=== PATIENT | female | born 1940 | race Caucasian/White ===

== ENCOUNTER 2022-08-30 12:54 | Emergency (ER) | payer MEDICARE ==
[2022-08-30 13:00] VITALS: RESP 18; TEMP 98.1
[2022-08-30 13:13] LABS: Basophils % (A) 0 %; Eosinophils # (A) 0.2 k/uL (0-0.7); Eosinophils % (A) 2 %; HCT 38.4 % (34.0-46.0); HGB 13.3 gm/dL (11.4-16.0); Lymphocytes # (A) 2.7 k/uL (1.0-4.8); Lymphocytes % (A) 31 %; MCH 33.4 pg (25.0-35.0); MCHC 34.7 g/dL (31.0-37.0); MCV 96.4 fL (80.0-100.0); Mean Platelet Volume 7.7; Monocytes # (A) 0.4 k/uL (0-1.0); Monocytes % (A) 4 %; Neutrophils # (A) 5.3 k/uL (1.3-7.7); Neutrophils % (A) 60 %; Platelet Count 202 k/uL (150-450); RBC 3.98 m/uL (3.80-5.40); RDW 12.2 % (11.5-15.5); WBC 8.7 k/uL (3.8-10.6)
[2022-08-30 13:25] LABS: ALT 14 U/L (4-34); AST 21 U/L (14-36); African American GFR (CKD) >90 (>60 ml/min/1.73 sqM); Albumin 3.5 g/dL (3.5-5.0); Alkaline Phosphatase 101 U/L (38-126); Anion Gap 3 mmol/L; Blood Urea Nitrogen 17 mg/dL (7-17); Calcium 8.8 mg/dL (8.4-10.2); Carbon Dioxide 27 mmol/L (22-30); Chloride 110 mmol/L (98-107); Glucose 114 mg/dL (74-99); Non-African American GFR(CKD) 89 (>60 ml/min/1.73 sqM); Potassium 4.1 mmol/L (3.5-5.1); Sodium 140 mmol/L (137-145); Total Bilirubin 0.6 mg/dL (0.2-1.3)
--- NOTE | 2022-08-30 13:26 | XR ---
EXAMINATION TYPE: XR chest 1V portable DATE OF EXAM: 08/30/2022 COMPARISON: NONE HISTORY: Fall TECHNIQUE: Single frontal view of the chest is obtained. FINDINGS: There is no focal air space opacity, pleural effusion, or pneumothorax seen. The cardiac silhouette size is within normal limits. The osseous structures are intact. IMPRESSION: No acute process.
--- NOTE | 2022-08-30 13:29 | CT ---
EXAMINATION TYPE: CT brain jamesine wo con DATE OF EXAM: 08/30/2022 COMPARISON: HISTORY: fall CT DLP: 1350.4 mGycm Automated exposure control for dose reduction was used. TECHNIQUE: CT scan of the head and cervical spine are performed without contrast. FINDINGS: There is no acute intracranial hemorrhage, mass effect, or midline shift identified. The ventricles and sulci are within normal limits in size. The globes are intact and the visualized sin uses are clear. There is a densely calcified 20 mm extra-axial mass along the left frontal inner conv exity most likely representing calcified meningioma. Cervical spine is visualized in its entirety from C1 through upper thoracic levels and demonstrates s atisfactory alignment without evidence of acute fracture or dislocation. Prevertebral soft tissue ap pears within normal limits. The C1-C2 articulation is unremarkable. IMPRESSION: 1. There is no acute fracture or dislocation evident in the cervical spine. 2. No acute intracranial hemorrhage, mass effect, or midline shift is seen.
--- NOTE | 2022-08-30 13:29 | ED ---
General Adult HPI - General Chief complaint: Fall Stated complaint: Fall-Dizziness Time Seen by Provider: 08/30/22 13:01 Source: EMS Mode of arrival: EMS Limitations: no limitations - History of Present Illness Initial comments: Dictation was produced using [employer] dictation software. please excuse any grammatical, word or spelling errors. Chief Complaint: 81-year-old male presents emergency department for fall and altered mental status History of Present Illness: Patient is a 1-year-old female she is a poor historian. She is brought in by EMS from home. Patient allegedly lives at [facility]. She was staying with her son at his air B[place]. He is visiting from out of state. Patient allegedly fell. Fall was unwitnessed. Patient is evaluated and found to be confused. EMS was called patient is brought to the emergency department. The ROS documented in this emergency department record has been reviewed and confirmed by me. Those systems with pertinent positive or negative responses have been documented in the HPI. All other systems are other negative and/or noncontributory. PHYSICAL EXAM: General Impression: Alert and oriented x2/4, not in acute distress HEENT: Normocephalic atraumatic, extra-ocular movements intact, pupils equal and reactive to light bilaterally, mucous membranes moist. Cardiovascular: Heart regular rate and rhythm Chest: Able to complete full sentences, no retractions, no tachypnea Abdomen: abdomen soft, non-tender, non-distended, no organomegaly Musculoskeletal: Pulses present and equal in all extremities, no peripheral edema Motor: no focal deficits noted Neurological: CN II-XII grossly intact, no focal motor or sensory deficits noted Skin: Intact with no visualized rashes Psych: Normal affect and mood ED course: 81-year-old female presents to emergency department after fall with altered mental status. Patient is a poor historian. Vital signs upon arrival are within acceptable limits. Chart review was performed Laboratory evaluation obtained found to be unremarkable. Imaging studies are negative. Patient observed in emergency department for 2 hours and 30 minutes found to be stable medical condition More history was obtained from the son over the phone. Patient unable to drive to the emergency department because he has a seizure disorder can drive. His re peat report is that he suspected that patient had fell while he was sleeping. Patient told him that maybe she fell. Son request the patient be brought to the emergency department reevaluated. Son has not really spent time with her because he lives out of town last time he was with her was 1 year ago. Since then she has been having mobility and mental issues already. Patient reevaluated at bedside at 3:20 PM. Found to be in stable medical condition. Patient observed in emergency department for 2-1/2 hours. Patient will be discharged. Urinalysis shows urinary tract infection. Patient prescribed antibiotics. My EKG interpretation: Ventricular rate 77, sinus rhythm,. Interval 145, Q 76, QTC 386. No MN prolongation, no QTC prolongation, no ST or T-wave changes noted. Overall, this EKG is unremarkable Critical Care: yes Critical Care time: 33 - Related Data Home Medications Medication Instructions Recorded Confirmed Ascorbic Acid [Vitamin C] 500 mg PO DAILY 08/30/22 08/30/22 Atorvastatin [Lipitor] 40 mg PO DIRECTED 08/30/22 08/30/22 Cholecalciferol [Vitamin D3 (25 25 mcg PO DAILY 08/30/22 08/30/22 Mcg = 1000 Iu)] Multivitamins, Thera [Multivitamin 1 tab PO DAILY 08/30/22 08/30/22 (formulary)] Previous Rx's Medication Instructions Recorded Cephalexin [Keflex] 250 mg PO Q6HR 5 Days #20 cap 08/30/22 Allergies Allergy/AdvReac Type Severity Reaction Status Date / Time No Known Allergies Allergy Verified 08/30/22 15:38 Review of Systems ROS Statement: Those systems with pertinent positive or pertinent negative responses have been documented in the HPI. ROS Other: All systems not noted in ROS Statement are negative. Past Medical History Past Medical History: No Reported History Past Surgical History: Orthopedic Surgery Smoking Status: Never smoker Past Alcohol Use History: None Reported Past Drug Use History: None Reported General Exam Limitations: no limitations Course Vital Signs 08/30/22 08/30/22 08/30/22 12:55 13:00 13:30 Temperature 98.1 F Pulse Rate 83 88 80 Respiratory 18 Rate Blood Pressure 154/94 154/94 154/94 O2 Sat by Pulse 98 98 96 Oximetry 08/30/22 08/30/22 08/30/22 14:00 14:30 15:00 Temperature Pulse Rate 81 79 80 Respiratory Rate Blood Pressure 132/72 128/61 139/91 O2 Sat by Pulse 95 95 96 Oximetry Medical Decision Making - Lab Data Result diagrams: 08/30/22 13:05 08/30/22 13:05 Lab Results 08/30/22 08/30/22 08/30/22 Range/Units 13:05 13:05 13:05 WBC 8.7 (3.8-10.6) k/uL RBC 3.98 (3.80-5.40) m/uL Hgb 13.3 (11.4-16.0) gm/dL Hct 38.4 (34.0-46.0) % MCV 96.4 (80.0-100.0) fL MCH 33.4 (25.0-35.0) pg MCHC 34.7 (31.0-37.0) g/dL RDW 12.2 (11.5-15.5) % Plt Count 202 (150-450) k/uL MPV 7.7 Neutrophils % 60 % Lymphocytes % 31 % Monocytes % 4 % Eosinophils % 2 % Basophils % 0 % Neutrophils # 5.3 (1.3-7.7) k/uL Lymphocytes # 2.7 (1.0-4.8) k/uL Monocytes # 0.4 (0-1.0) k/uL Eosinophils # 0.2 (0-0.7) k/uL Basophils # 0.0 (0-0.2) k/uL Sodium 140 (137-145) mmol/L Potassium 4.1 (3.5-5.1) mmol/L Chloride 110 H (98-107) mmol/L Carbon Dioxide 27 (22-30) mmol/L Anion Gap 3 mmol/L BUN 17 (7-17) mg/dL Creatinine 0.53 (0.52-1.04) mg/dL Est GFR (CKD-EPI)AfAm >90 (>60 ml/min/1.73 sqM) Est GFR (CKD-EPI)NonAf 89 (>60 ml/min/1.73 sqM) Glucose 114 H (74-99) mg/dL Calcium 8.8 (8.4-10.2) mg/dL Total Bilirubin 0.6 (0.2-1.3) mg/dL AST 21 (14-36) U/L ALT 14 (4-34) U/L Alkaline Phosphatase 101 (38-126) U/L Total Protein 6.0 L (6.3-8.2) g/dL Albumin 3.5 (3.5-5.0) g/dL Urine Color Yellow Urine Appearance Clear (Clear) Urine pH 6.0 (5.0-8.0) Ur Specific [place] 1.027 (1.001-1.035) Urine Protein Negative (Negative) Urine Glucose (UA) Negative (Negative) Urine Ketones Negative (Negative) Urine Blood Negative (Negative) Urine Nitrite Negative (Negative) Urine Bilirubin Negative (Negative) Urine Urobilinogen 2.0 (<2.0) mg/dL Ur Leukocyte Esterase Moderate H (Negative) Urine RBC 2 (0-5) /hpf Urine WBC 29 H (0-5) /hpf Ur Squamous Epith Cells 2 (0-4) /hpf Hyaline Casts 1 (0-2) /lpf Urine Mucus Rare H (None) /hpf Disposition Clinical Impression: Fall, UTI (urinary tract infection) Disposition: HOME SELF-CARE Condition: Good Instructions (If sedation given, give patient instructions): Fall Prevention for Older Adults (ED), Urinary Tract Infection in Women (ED) Prescriptions: Cephalexin [Keflex] 250 mg PO Q6HR 5 Days #20 cap Is patient prescribed a controlled substance at d/c from ED?: No Referrals: None,Stated [Primary Care Provider] - 1-2 days Time of Disposition: 15:24
[2022-08-30 15:48] LABS: Appearance,Urine Clear (Clear); Bilirubin,Urine Negative (Negative); Blood,Urine Negative (Negative); Color,Urine Yellow; Glucose,Urine (UA) Negative (Negative); Hyaline Casts,Urine 1 /lpf (0-2); Ketones,Urine Negative (Negative); Leukocyte Esterase,Urine Moderate (Negative); Mucus,Urine Rare /hpf; Nitrite,Urine Negative (Negative); Protein,Urine Negative (Negative); RBC,Urine 2 /hpf (0-5); Specific Gravity,Urine 1.027 (1.001-1.035); Squamous Epithelial Cell,Urine 2 /hpf (0-4); WBC,Urine 29 /hpf (0-5)
[2022-08-30 16:29] VITALS: BP 118/66; PULSE 72
== END 2022-08-30 16:29 | disposition home or self-care (01) ==
LOC: EC 12:54
DX: N39.0 Urinary tract infection, site not specified (principal); Z88.1 Allergy status to other antibiotic agents; W18.30XA Fall on same level, unspecified, initial encounter
CPT/HCPCS: 36415; 70450; 71045; 72125; 80053; 81001; 85025; 87086; 93005; 99285

== ENCOUNTER 2023-10-24 23:57 | Inpatient (IN) | payer MEDICARE ==
--- NOTE | 2023-10-25 00:12 | ED ---
General Adult HPI - General Chief complaint: Abdominal Pain Stated complaint: Abdominal Pain Time Seen by Provider: 10/24/23 23:59 Source: patient, EMS Mode of arrival: EMS Limitations: no limitations - History of Present Illness Initial comments: Dictation was produced using [employer] dictation software. please excuse any grammatical, word or spelling errors. Chief Complaint: 83-year-old female with no significant comorbidities presents to the ER for worsening left lower quadrant abdominal pain History of Present Illness: 83-year-old female she has no known significant comorbidities. States over the last several days she's been having worsening left lower quadrant pain. States that it hurts all the time. Denies any burning on urination. Patient states the pain is constant. Nonradiating noncolicky. Denies any nausea or vomiting. She reports that she does have symptoms even while at rest. She has no history of diverticulitis or abdominal surgery. The ROS documented in this emergency department record has been reviewed and confirmed by me. Those systems with pertinent positive or negative responses have been documented in the HPI. All other systems are other negative and/or noncontributory. - Related Data Home Medications Medication Instructions Recorded Confirmed Ascorbic Acid [Vitamin C] 500 mg PO DAILY 08/30/22 08/30/22 Atorvastatin [Lipitor] 40 mg PO DIRECTED 08/30/22 08/30/22 Cholecalciferol [Vitamin D3 (25 25 mcg PO DAILY 08/30/22 08/30/22 Mcg = 1000 Iu)] Multivitamins, Thera [Multivitamin 1 tab PO DAILY 08/30/22 08/30/22 (formulary)] Previous Rx's Medication Instructions Recorded Cephalexin [Keflex] 250 mg PO Q6HR 5 Days #20 cap 08/30/22 Allergies Allergy/AdvReac Type Severity Reaction Status Date / Time No Known Allergies Allergy Verified 10/25/23 00:03 Review of Systems ROS Statement: Those systems with pertinent positive or pertinent negative responses have been documented in the HPI. ROS Other: All systems not noted in ROS Statement are negative. Past Medical History Past Medical History: No Reported History Past Surgical History: Orthopedic Surgery Smoking Status: Never smoker Past Alcohol Use History: None Reported Past Drug Use History: None Reported General Exam - General Exam Comments Initial Comments: PHYSICAL EXAM: General Impression: Alert and oriented x3, not in acute distress HEENT: Normocephalic atraumatic, extra-ocular movements intact, pupils equal and reactive to light bilaterally, mucous membranes moist. Cardiovascular: Heart regular rate and rhythm Chest: Able to complete full sentences, no retractions, no tachypnea Abdomen: abdomen soft, palpatory tenderness to the left lower quadrant, non- distended, no organomegaly Musculoskeletal: Pulses present and equal in all extremities, no peripheral edema Motor: no focal deficits noted Neurological: CN II-XII grossly intact, no focal motor or sensory deficits noted Skin: Intact with no visualized rashes Psych: Normal affect and mood Limitations: no limitations Course Vital Signs 10/25/23 10/25/23 00:01 02:03 Temperature 97.3 F L Pulse Rate 77 79 Respiratory 18 18 Rate Blood Pressure 139/68 133/62 O2 Sat by Pulse 100 97 Oximetry Medical Decision Making - Medical Decision Making Was pt. sent in by a medical professional or institution (, PA, CONCRETE CONVEYOR OPERATOR, urgent care, hospital, or longterm...) When possible be specific @ -No Did you speak to anyone other than the patient for history (EMS, parent, family, police, friend...)? What history was obtained from this source @ -No Did you review nursing and triage notes (agree or disagree)? Why? @ -I reviewed and agree with nursing and triage notes Were old charts reviewed (outside hosp., previous admission, EMS record, old EKG, old radiological studies, urgent care reports/EKG's, longterm records)? Report findings @ -No old charts were reviewed Differential Diagnosis (chest pain, altered mental status, abdominal pain women, abdominal pain men, vaginal bleeding, musculoskeletal, weakness, fever, dyspnea, syncope, headache, dizziness, GI bleed, back pain, seizure, CVA, palpatations, mental health)? @ -Differential Abdominal Pain Women: Appendicitis, Cholecystitis, diverticulosis, ischemic bowel, pancreatitis, hepatitis, UTI, gastroenteritis, AAA, incarcerated hernia, bowel obstruction, constipation, inflammatory bowel, hepatitis, peptic ulcer disease, splenic infa rction, perforated viscus, vulvitis, ovarian torsion, PID, kidney stone, placenta abruption, this is not meant to be an all-inclusive list EKG interpreted by me (3pts min.). @ -None done X-rays interpreted by me (1pt min.). @ -None done CT interpreted by me (1pt min.). @ -CT abdomen and pelvis shows perforated diverticulitis U/S interpreted by me (1pt. min.). @ -None done What testing was considered but not performed or refused? (CT, X-rays, U/S, labs)? Why? @ -None What meds were considered but not given or refused? Why? @ -None Did you discuss the management of the patient with other professionals (professionals i.e. Dr., PA, CONCRETE CONVEYOR OPERATOR, lab, RT, psych nurse, social director, spout liner helper, teacher, customs and border protection officer, high risk case manager)? Give summary @ -No Was smoking cessation discussed for >3mins.? @ -No Was critical care preformed (if so, how long)? @ -No Were there social determinants of health that impacted care today? How? (Homelessness, low income, unemployed, alcoholism, drug addiction, transportation, low edu. Level, literacy, decrease access to med. care, [facility], rehab)? @ -No Was there de-escalation of care discussed even if they declined (Discuss DNR or withdrawal of care, Hospice)? DNR status @ -No What co-morbidities impacted this encounter? (DM, HTN, Smoking, COPD, CAD, Cancer, CVA, ARF, Chemo, Hep., AIDS, mental health diagnosis, sleep apnea, morbid obesity)? @ -None Was patient admitted / discharged? Hospital course, mention meds given and route, prescriptions, significant lab abnormalities, going to OR and other pertinent info. @ -83-year-old female presents emergency department for left lower quadrant abdominal pain. Vital signs upon arrival are within acceptable limits. Patient is well-appearing in no acute distress. Laboratory evaluation obtained on to be within acceptable limits. CT shows perforated diverticulitis. Patient started on antibiotics will be admitted to general surgery. Case discussed with general surgeon, Dr. Billings who is agreeable for accepting patient's care Undiagnosed new problem with uncertain prognosis? @ -No Drug Therapy requiring intensive monitoring for toxicity (Heparin, Nitro, Insul in, Cardizem)? @ -No Were any procedures done? @ -No Diagnosis/symptom? Acute, or Chronic, or Acute on Chronic? Uncomplicated (without systemic symptoms) or Complicated (systemic symptoms)? @ -Perforated diverticulitis Side effects of treatment? @ -No Exacerbation, Progression, or Severe Exacerbation? @ -No Poses a threat to life or bodily function? How? (Chest pain, USA, SC, pneumonia, PE, COPD, DKA, ARF, appy, cholecystitis, CVA, Diverticulitis, Homicidal, Suicidal, threat to staff... and all critical care pts) @ -yes - Lab Data Result diagrams: 10/25/23 00:30 10/25/23 00:30 Lab Results 10/25/23 10/25/23 10/25/23 Range/Units 00:30 00:30 00:30 WBC 13.5 H (3.8-10.6) k/uL RBC 4.11 (3.80-5.40) m/uL Hgb 13.3 (11.4-16.0) gm/dL Hct 40.1 (34.0-46.0) % MCV 97.7 (80.0-100.0) fL MCH 32.5 (25.0-35.0) pg MCHC 33.2 (31.0-37.0) g/dL RDW 12.3 (11.5-15.5) % Plt Count 174 (150-450) k/uL MPV 8.6 Neutrophils % 79 % Lymphocytes % 16 % Monocytes % 4 % Eosinophils % 1 % Basophils % 0 % Neutrophils # 10.6 H (1.3-7.7) k/uL Lymphocytes # 2.1 (1.0-4.8) k/uL Monocytes # 0.5 (0-1.0) k/uL Eosinophils # 0.1 (0-0.7) k/uL Basophils # 0.0 (0-0.2) k/uL Sodium 141 (137-145) mmol/L Potassium 3.7 (3.5-5.1) mmol/L Chloride 110 H (98-107) mmol/L Carbon Dioxide 26 (22-30) mmol/L Anion Gap 5 mmol/L BUN 23 H (7-17) mg/dL Creatinine 0.72 (0.52-1.04) mg/dL Est GFR (CKD-EPI)AfAm 90 (>60 ml/min/1.73 sqM) Est GFR (CKD-EPI)NonAf 78 (>60 ml/min/1.73 sqM) Glucose 112 H (74-99) mg/dL Plasma Lactic Acid Danny 0.8 (0.7-2.0) mmol/L Calcium 8.9 (8.4-10.2) mg/dL Total Bilirubin 0.6 (0.2-1.3) mg/dL AST 23 (14-36) U/L ALT 16 (4-34) U/L Alkaline Phosphatase 90 (38-126) U/L Total Protein 6.4 (6.3-8.2) g/dL Albumin 3.7 (3.5-5.0) g/dL Disposition Clinical Impression: Perforated bowel Disposition: ADMITTED IP TO THIS [facility] Condition: Serious Referrals: None,Stated [Primary Care Provider] - 1-2 days Decision Time: 02:16
[2023-10-25 00:40] LABS: Basophils % (A) 0 %; Eosinophils # (A) 0.1 k/uL (0-0.7); Eosinophils % (A) 1 %; HCT 40.1 % (34.0-46.0); HGB 13.3 gm/dL (11.4-16.0); Lymphocytes # (A) 2.1 k/uL (1.0-4.8); Lymphocytes % (A) 16 %; MCH 32.5 pg (25.0-35.0); MCHC 33.2 g/dL (31.0-37.0); MCV 97.7 fL (80.0-100.0); Mean Platelet Volume 8.6; Monocytes # (A) 0.5 k/uL (0-1.0); Monocytes % (A) 4 %; Neutrophils # (A) 10.6 k/uL (1.3-7.7); Neutrophils % (A) 79 %; Platelet Count 174 k/uL (150-450); RBC 4.11 m/uL (3.80-5.40); RDW 12.3 % (11.5-15.5); WBC 13.5 k/uL (3.8-10.6)
[2023-10-25 00:47] LABS: ALT 16 U/L (4-34); AST 23 U/L (14-36); African American GFR (CKD) 90 (>60 ml/min/1.73 sqM); Albumin 3.7 g/dL (3.5-5.0); Alkaline Phosphatase 90 U/L (38-126); Anion Gap 5 mmol/L; Blood Urea Nitrogen 23 mg/dL (7-17); Calcium 8.9 mg/dL (8.4-10.2); Carbon Dioxide 26 mmol/L (22-30); Chloride 110 mmol/L (98-107); Glucose 112 mg/dL (74-99); Non-African American GFR(CKD) 78 (>60 ml/min/1.73 sqM); Potassium 3.7 mmol/L (3.5-5.1); Sodium 141 mmol/L (137-145); Total Bilirubin 0.6 mg/dL (0.2-1.3); Total Protein 6.4 g/dL (6.3-8.2)
--- NOTE | 2023-10-25 01:56 | CT ---
EXAM: CT Abdomen and Pelvis With Intravenous Contrast CLINICAL HISTORY: ITS.REASON CT Reason: llq pain TECHNIQUE: Axial computed tomography images of the abdomen and pelvis with intravenous contrast. CTDI is 19.5 mGy and DLP is 894.8 mGy-cm. This CT exam was performed using one or more of the following dose reduction techniques: automated exposure control, adjustment of the mA and/or kV according to patient size, and/or use of iterative reconstruction technique. COMPARISON: No relevant prior studies available. FINDINGS: There is complicated acute diverticulitis of the proximal sigmoid colon. There is wall thickening and pericolic fat stranding. Intramural abscess in the lateral sigmoid colon wall measures 3 cm. There are foci of free air in the adjacent mesentery in keeping with bowel perforation. There is trace ascites extending that the pelvis. Foci of free air extend into the upper abdomen. There is no bowel obstruction. There is no evidence of appendicitis. Liver, gallbladder, spleen, pancreas, and adrenal glands are unremarkable. Left adrenal gland is normal. There is an indeterminate right adrenal nodule measuring 3 cm. Kidneys enhance symmetrically. There is no hydronephrosis. Aorta is calcified. There is no aneurysm. There is no adenopathy. Calcified uterine fibroid in the left aspect of the uterus measures 18 mm. Urinary bladder is normal. Bones are osteopenic. 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 There is multilevel disc and facet degeneration in the lumbar spine. There are no acute fractures. Lung bases are clear. IMPRESSION: 1. Perforated acute diverticulitis of the proximal sigmoid colon. Foci of free the air in the adjacent mesentery and in the upper abdomen. There is also a 3 cm intramural abscess in the sigmoid colon wall. 2. Indeterminate right adrenal mass measuring 3 cm. Further characterization with low-dose adrenal protocol CT may be performed. <MYCVCSECTION> Communications: 10/25/23 02:00 Call Doctor Regarding Pneumoperitoneum, new or unexpected, called Dr. Lujan on 10/25 02:00 (-05:00)
[2023-10-25] MEDS ORDERED: ONDANSETRON 4 MG/2 ML VIAL IVP PRN (02:06)
[2023-10-25] MEDS ORDERED: NALOXONE 0.4 MG/ML 1 ML VIAL IV PRN (02:06)
[2023-10-25] MEDS ORDERED: ACETAMINOPHEN TAB 325 MG TAB PO PRN (02:06)
[2023-10-25] MEDS: SODIUM CHLORIDE 0.9% 1,000 ML IV SCH ×3 (02:21→20:43)
[2023-10-25] MEDS: PIPERACILLIN-TAZOBACTAM 3.375 GM in SODIUM CHLORIDE 0.9% 100 ML IVPB SCH ×3 (02:22→16:48)
--- NOTE | 2023-10-25 03:12 | XR ---
EXAM: XR Chest, 1 View CLINICAL HISTORY: ITS.REASON XR Reason: preop TECHNIQUE: Frontal view of the chest. COMPARISON: 08/30/2022 FINDINGS: Lungs: Unremarkable. No consolidation. Pleural space: Unremarkable. No pneumothorax. Heart: Unremarkable. No cardiomegaly. Mediastinum: Unremarkable. Normal mediastinal contour. Bones/joints: Unremarkable. No acute fracture. Upper abdomen: Free air in the abdomen this is new when compared with the prior chest x-ray but correspond to the abnormality identified on the CT of the abdomen and pelvis performed earlier on the same date. IMPRESSION: Free air
[2023-10-25 03:13] LABS: INR 0.9 (<1.2); Partial Thromboplastin Time 22.1 sec (22.0-30.0); Prothrombin Time 10.4 sec (10.0-12.5)
[2023-10-25 08:45] LABS: Appearance,Urine Clear (Clear); Bilirubin,Urine Negative (Negative); Blood,Urine Trace (Negative); Color,Urine Light Yellow; Glucose,Urine (UA) Negative (Negative); Ketones,Urine Negative (Negative); Leukocyte Esterase,Urine Negative (Negative); Mucus,Urine Rare /hpf; Nitrite,Urine Negative (Negative); Protein,Urine Negative (Negative); RBC,Urine 2 /hpf (0-5); Squamous Epithelial Cell,Urine 2 /hpf (0-4); Urobilinogen,Urine <2.0 mg/dL (<2.0); WBC,Urine 5 /hpf (0-5)
[2023-10-25 08:47] LABS: Specific Gravity,Urine >1.050 (1.001-1.035)
--- NOTE | 2023-10-25 12:39 | P.GSHP ---
History of Present Illness H&P Date: 10/25/23 CHIEF COMPLAINT: Abdominal pain HISTORY OF PRESENT ILLNESS: This 83-year-old female who presented with left lower quadrant abdominal pain. She is a poor historian. Patient reports that she does not have abdominal pain but she is tender on exam. She is unclear of why she is admitted to the hospital. Computed tomography scan abdomen and pelvis had reported perforated acute diverticulitis of the sigmoid colon with a 3 cm intramural abscess in the sigmoid colon wall. Patient has been started on antibiotics. She is nothing by mouth. No fevers reported. She did have evidence of leukocytosis. Patient unclear what her last colonoscopy was. PAST MEDICAL HISTORY: Hyperlipidemia PAST SURGICAL HISTORY: See below MEDICATIONS: See below ALLERGIES: See below SOCIAL HISTORY: No illicit drug use. REVIEW OF SYSTEMS: CONSTITUTIONAL: Denies fever or chills. HEENT: Denies blurred vision, vision changes, or eye pain. Denies hemoptysis CARDIOVASCULAR: Denies chest pain or pressure. RESPIRATORY: No shortness of breath. GASTROINTESTINAL: See HPI for pertinent findings HEMATOLOGIC: Denies bleeding disorders. GENITOURINARY: Denies any blood in urine or increased urinary frequency. SKIN: Denies pruitis. Denies rash. PHYSICAL EXAM: VITAL SIGNS: Reviewed GENERAL: Well-developed in no acute distress. ABDOMEN: Soft. Nondistended. Tenderness with palpation of the left lower qu adrant NEUROLOGIC: Awake and alert. Pleasantly confused. LABORATORY DATA: WBC 13.5 Hgb 13.3 platelets 174 INR 0.9 Sodium 141 potassium 3.7 creatinine 0.72 Lactic acid 0.8 IMAGING: Computed tomography scan of pelvis reports perforated acute diverticulitis of the proximal sigmoid colon. Foci of free air in the adjacent mesentery and in the upper abdomen. There is also a 3 cm intramural abscess in the sigmoid colon wall. Indeterminate right adrenal mass measuring 3 cm. ASSESSMENT: 1. Acute diverticulitis of the sigmoid colon with microperforation and intramural abscess PLAN: -Continue IV antibiotics -Keep patient nothing by mouth -Continue IV fluids -Continue supportive care -Medicine service consulted for medical management -GI prophylaxis Pepcid and DVT prophylaxis subcu Physician Test Carrier note has been reviewed by physician. Signing provider agrees with the documented findings, assessment, and plan of care. Past Medical History Past Medical History: No Reported History Past Surgical History: Orthopedic Surgery Smoking Status: Never smoker Past Alcohol Use History: None Reported Past Drug Use History: None Reported Medications and Allergies Home Medications Medication Instructions Recorded Confirmed Type Atorvastatin [Lipitor] 40 mg PO DIRECTED 08/30/22 10/25/23 History Cholecalciferol [Vitamin D3 (25 25 mcg PO DAILY 08/30/22 10/25/23 History Mcg = 1000 Iu)] Cranberry(Unknown Dose) 1 tab PO DAILY 10/25/23 10/25/23 History Focus Factor 1 cap PO DAILY 10/25/23 10/25/23 History Lutein 20 mg PO DAILY 10/25/23 10/25/23 History [place]-3/Dha/Epa/Fish Oil [Fish Oil 1 cap PO DAILY 10/25/23 10/25/23 History 1,000 mg Softgel] Allergies Allergy/AdvReac Type Severity Reaction Status Date / Time No Known Allergies Allergy Verified 10/25/23 11:04 Surgical - Exam Vital Signs Temp Pulse Resp BP Pulse Ox 97.3 F L 77 18 139/68 100 10/25/23 00:01 10/25/23 00:01 10/25/23 00:01 10/25/23 00:01 10/25/23 00:01 Results - Labs 10/25/23 00:30 10/25/23 00:30 Abnormal Lab Results - Last 24 Hours (Table) 10/25/23 10/25/23 10/25/23 Range/Units 00:30 00:30 08:23 WBC 13.5 H (3.8-10.6) k/uL Neutrophils # 10.6 H (1.3-7.7) k/uL Chloride 110 H (98-107) mmol/L BUN 23 H (7-17) mg/dL Glucose 112 H (74-99) mg/dL Ur Specific [place] >1.050 H (1.001-1.035) Urine Blood Trace H (Negative) Urine Mucus Rare H (None) /hpf Diabetes panel 10/25/23 Range/Units 00:30 Sodium 141 (137-145) mmol/L Potassium 3.7 (3.5-5.1) mmol/L Chloride 110 H (98-107) mmol/L Carbon Dioxide 26 (22-30) mmol/L BUN 23 H (7-17) mg/dL Creatinine 0.72 (0.52-1.04) mg/dL Glucose 112 H (74-99) mg/dL Calcium 8.9 (8.4-10.2) mg/dL AST 23 (14-36) U/L ALT 16 (4-34) U/L Alkaline Phosphatase 90 (38-126) U/L Total Protein 6.4 (6.3-8.2) g/dL Albumin 3.7 (3.5-5.0) g/dL Calcium panel 10/25/23 Range/Units 00:30 Calcium 8.9 (8.4-10.2) mg/dL Albumin 3.7 (3.5-5.0) g/dL Pituitary panel 10/25/23 Range/Units 00:30 Sodium 141 (137-145) mmol/L Potassium 3.7 (3.5-5.1) mmol/L Chloride 110 H (98-107) mmol/L Carbon Dioxide 26 (22-30) mmol/L BUN 23 H (7-17) mg/dL Creatinine 0.72 (0.52-1.04) mg/dL Glucose 112 H (74-99) mg/dL Calcium 8.9 (8.4-10.2) mg/dL Adrenal panel 10/25/23 Range/Units 00:30 Sodium 141 (137-145) mmol/L Potassium 3.7 (3.5-5.1) mmol/L Chloride 110 H (98-107) mmol/L Carbon Dioxide 26 (22-30) mmol/L BUN 23 H (7-17) mg/dL Creatinine 0.72 (0.52-1.04) mg/dL Glucose 112 H (74-99) mg/dL Calcium 8.9 (8.4-10.2) mg/dL Total Bilirubin 0.6 (0.2-1.3) mg/dL AST 23 (14-36) U/L ALT 16 (4-34) U/L Alkaline Phosphatase 90 (38-126) U/L Total Protein 6.4 (6.3-8.2) g/dL Albumin 3.7 (3.5-5.0) g/dL
[2023-10-25] MEDS: FAMOTIDINE 20 MG/2 ML VIAL IV SCH (13:10)
[2023-10-25] MEDS: HEPARIN SODIUM,PORCINE 5,000 UNIT/ML 1 ML VIAL SQ SCH (20:42)
[2023-10-26] MEDS: PIPERACILLIN-TAZOBACTAM 3.375 GM in SODIUM CHLORIDE 0.9% 100 ML IVPB SCH ×4 (00:17→23:28)
[2023-10-26] MEDS: SODIUM CHLORIDE 0.9% 1,000 ML IV SCH ×3 (01:51→21:10)
--- NOTE | 2023-10-26 04:00 | PN ---
PROGRESS NOTE Dr. Billings apparently consulted here for left lower abdominal pain in the hospital. CT shows perforated acute diverticulitis; 3 cm abscess. Nothing by mouth. OBJECTIVE: VITAL SIGNS: Appear to be reviewed. CARDIOVASCULAR: S1, S2. LUNGS: Clear. GI: Soft. LABORATORY DATA: CAT scan shows diverticulitis with sigmoid colon abscess, right adrenal mass, IV antibiotics, nothing by mouth. Medical service for consult. Continue home medications. Prognosis guarded. Broad-spectrum antibiotics. Please see further orders. MMODL / IJN: [id number] /
[2023-10-26] MEDS: HEPARIN SODIUM,PORCINE 5,000 UNIT/ML 1 ML VIAL SQ SCH ×2 (08:08→21:08)
[2023-10-26] MEDS: FAMOTIDINE 20 MG/2 ML VIAL IV SCH (08:08)
[2023-10-26 10:16] LABS: Basophils # (A) 0.02 X 10*3/uL (0.00-0.10); Basophils % (A) 0.2 %; Eosinophils # (A) 0.04 X 10*3/uL (0.04-0.35); Eosinophils % (A) 0.4 %; HCT 37.9 % (37.2-46.3); HGB 12.4 g/dL (12.0-15.0); Lymphocytes # (A) 2.47 X 10*3/uL (0.90-5.00); Lymphocytes % (A) 22.3 %; MCHC 32.7 g/dL (32.0-37.0); MCV 97.9 FL (80.0-97.0); Mean Platelet Volume 10.5 FL (9.5-12.2); Monocytes # (A) 0.63 X 10*3/uL (0.20-1.00); Monocytes % (A) 5.7 %; NRBC Per 100 WBC 0 X 10*3/uL (0.00-0.01); Neutrophils # (A) 7.86 X 10*3/uL (1.80-7.70); Platelet Count 183 X 10*3/uL (140-440); RBC 3.87 X 10*6/uL (4.10-5.20); WBC 11.06 X 10*3/uL (4.50-10.00)
[2023-10-26 11:49] LABS: Blood Urea Nitrogen 8.8 mg/dL (9.0-27.0); Calcium 8.8 mg/dL (8.7-10.3); Carbon Dioxide 24.8 mmol/L (21.6-31.8); Chloride 110 mmol/L (96-109); Glucose 82 mg/dL (70-110); Potassium 3.9 mmol/L (3.5-5.5); Sodium 146 mmol/L (135-145)
--- NOTE | 2023-10-26 12:45 | P.PN ---
Subjective Progress Note Date: 10/26/23 CHIEF COMPLAINT: Diverticulitis HISTORY OF PRESENT ILLNESS: Patient lying in bed comfortably. Denies any abdominal pain. Afebrile. White count is down from 13-11.06 hemoglobin 12.4 platelets 183 sodium 146 potassium 3.9 creatinine 0.8 PHYSICAL EXAM: VITAL SIGNS: Reviewed. GENERAL: Well-developed in no acute distress. ABDOMEN: Soft. Nondistended. Tenderness to palpation left lower quadrant NEUROLOGIC: Pleasantly confused ASSESSMENT: 1. Acute diverticulitis of the sigmoid colon with microperforation and intramural abscess PLAN: -Advance diet to clear liquids for lunch and full liquids at dinner -Continue IV antibiotics -Decreased IV fluids to 75 mL per hour -Continue supportive care -Consult physical therapy to ambulate patient -GI prophylaxis Pepcid and DVT prophylaxis subcu Heparin Physician Stage Set Up Worker note has been reviewed by physician. Signing provider agrees with the documented findings, assessment, and plan of care. Objective - Vital Signs Vital signs: Vital Signs Temp 98.3 F 10/26/23 07:34 Pulse 85 10/26/23 07:34 Resp 16 10/26/23 08:00 BP 117/68 10/26/23 07:34 Pulse Ox 95 10/26/23 07:34 FiO2 Intake & Output 10/25/23 10/26/23 10/26/23 18:59 06:59 18:59 Weight 74.843 kg Other: Voiding Method Toilet Toilet Toilet # Voids 1 1 1 # Bowel Movements 1 - Labs CBC & Chem 7: 10/26/23 05:25 10/26/23 05:25 Labs: Abnormal Lab Results - Last 24 Hours (Table) 10/26/23 10/26/23 Range/Units 05:25 05:25 WBC 11.06 H (4.50-10.00) X 10*3/uL RBC 3.87 L (4.10-5.20) X 10*6/uL MCV 97.9 H (80.0-97.0) [place] Neutrophils # 7.86 H (1.80-7.70) X 10*3/uL Sodium 146 H (135-145) mmol/L Chloride 110 H (96-109) mmol/L BUN 8.8 L (9.0-27.0) mg/dL BUN/Creatinine Ratio 11.00 L (12.00-20.00) Ratio
[2023-10-27] MEDS: PIPERACILLIN-TAZOBACTAM 3.375 GM in SODIUM CHLORIDE 0.9% 100 ML IVPB SCH ×2 (08:28→17:31)
[2023-10-27] MEDS: FAMOTIDINE 20 MG/2 ML VIAL IV SCH (08:29)
[2023-10-27] MEDS: HEPARIN SODIUM,PORCINE 5,000 UNIT/ML 1 ML VIAL SQ SCH ×2 (08:29→21:55)
[2023-10-27 11:05] LABS: Basophils # (A) 0.02 X 10*3/uL (0.00-0.10); Basophils % (A) 0.3 %; Eosinophils # (A) 0.09 X 10*3/uL (0.04-0.35); Eosinophils % (A) 1.5 %; HGB 11.8 g/dL (12.0-15.0); Lymphocytes # (A) 1.44 X 10*3/uL (0.90-5.00); MCHC 32.8 g/dL (32.0-37.0); MCV 97.6 FL (80.0-97.0); Mean Platelet Volume 10.5 FL (9.5-12.2); Monocytes % (A) 6.7 %; NRBC Per 100 WBC 0 X 10*3/uL (0.00-0.01); Neutrophils # (A) 4.02 X 10*3/uL (1.80-7.70); Neutrophils % (A) 67.2 %; Platelet Count 158 X 10*3/uL (140-440); RBC 3.69 X 10*6/uL (4.10-5.20); RDW 11.8 % (11.5-14.5); WBC 5.99 X 10*3/uL (4.50-10.00)
[2023-10-27 11:22] LABS: BUN/Creat Ratio 11.14 Ratio (12.00-20.00); Blood Urea Nitrogen 7.8 mg/dL (9.0-27.0); Calcium 8.8 mg/dL (8.7-10.3); Carbon Dioxide 24.6 mmol/L (21.6-31.8); Chloride 109 mmol/L (96-109); Glucose 83 mg/dL (70-110); Sodium 144 mmol/L (135-145)
--- NOTE | 2023-10-27 11:43 | P.PN ---
Subjective Progress Note Date: 10/27/23 CHIEF COMPLAINT: Diverticulitis HISTORY OF PRESENT ILLNESS: Patient lying in bed comfortably. Denies any abdominal pain. Tolerating full liquids. Having bowel movements. Afebrile. WBC normalized from 11.06 to 5.99 PHYSICAL EXAM: VITAL SIGNS: Reviewed. GENERAL: Well-developed in no acute distress. ABDOMEN: Soft. Nondistended. Minimal Tenderness to palpation left lower quadrant NEUROLOGIC: Pleasantly confused ASSESSMENT: 1. Acute diverticulitis of the sigmoid colon with microperforation and intramural abscess PLAN: -Continue full liquids -Continue IV antibiotics -Continue IV fluids -Continue supportive care -Consult physical therapy to ambulate patient -GI prophylaxis Pepcid and DVT prophylaxis subcu Heparin Physician Hydroelectric Component Machinist note has been reviewed by physician. Signing provider agrees with the documented findings, assessment, and plan of care. Objective - Vital Signs Vital signs: Vital Signs Temp 98.9 F 10/27/23 08:10 Pulse 65 10/27/23 08:10 Resp 17 10/27/23 08:10 BP 118/70 10/27/23 08:10 Pulse Ox 96 10/27/23 08:10 FiO2 Intake & Output 10/26/23 10/27/23 10/27/23 18:59 06:59 18:59 Intake Total 1350 Balance 1350 Intake: Intake, IV Titration 500 Amount Piperacillin-Tazobactam 3 100 .375 gm In Sodium Chloride 0.9% 100 ml @ 25 mls/hr IVPB Q8HR LEONARDO Rx# :[id number] Sodium Chloride 0.9% 1, 400 000 ml @ 75 mls/hr IV . [id number] LEONARDO Rx#:[id number] Oral 850 Other: Voiding Method Toilet Toilet # Voids 1 3 1 # Bowel Movements 1 1 - Labs CBC & Chem 7: 10/27/23 05:58 10/27/23 05:58 Labs: Abnormal Lab Results - Last 24 Hours (Table) 10/26/23 10/26/23 Range/Units 05:25 05:25 WBC 11.06 H (4.50-10.00) X 10*3/uL RBC 3.87 L (4.10-5.20) X 10*6/uL MCV 97.9 H (80.0-97.0) [place] Neutrophils # 7.86 H (1.80-7.70) X 10*3/uL Sodium 146 H (135-145) mmol/L Chloride 110 H (96-109) mmol/L BUN 8.8 L (9.0-27.0) mg/dL BUN/Creatinine Ratio 11.00 L (12.00-20.00) Ratio
[2023-10-27] MEDS: SODIUM CHLORIDE 0.9% 1,000 ML IV SCH ×2 (17:32→22:05)
[2023-10-28] MEDS: PIPERACILLIN-TAZOBACTAM 3.375 GM in SODIUM CHLORIDE 0.9% 100 ML IVPB SCH ×3 (00:09→15:54)
--- NOTE | 2023-10-28 07:15 | PN ---
PROGRESS NOTE SUBJECTIVE: IV Zosyn for diverticular abscess 3 cm. Switch to oral antibiotics once cleared by Dr. Billings. OBJECTIVE: CARDIOVASCULAR: S1, S2. LUNGS: Clear. GI: Soft. HEMATOLOGY: Negative for [place]. PSYCH: Fair mood and affect. Diverticular abscess. Continue current treatment with Zosyn, Pepcid for GERD. PROGNOSIS: Guarded. Follow up in next 24 to 48 hours. Please see further orders. MMODL / IJN: [id number] /
[2023-10-28] MEDS: FAMOTIDINE 20 MG/2 ML VIAL IV SCH (09:12)
[2023-10-28] MEDS: HEPARIN SODIUM,PORCINE 5,000 UNIT/ML 1 ML VIAL SQ SCH (09:13)
[2023-10-28] MEDS: SODIUM CHLORIDE 0.9% 1,000 ML IV SCH (09:13)
[2023-10-28 09:26] LABS: Basophils # (A) 0.02 X 10*3/uL (0.00-0.10); Basophils % (A) 0.3 %; Eosinophils # (A) 0.12 X 10*3/uL (0.04-0.35); HCT 35.2 % (37.2-46.3); HGB 11.6 g/dL (12.0-15.0); Lymphocytes # (A) 1.81 X 10*3/uL (0.90-5.00); Lymphocytes % (A) 30.9 %; MCH 31.9 pg (27.0-32.0); MCV 96.7 FL (80.0-97.0); Mean Platelet Volume 10.5 FL (9.5-12.2); Monocytes # (A) 0.47 X 10*3/uL (0.20-1.00); NRBC Per 100 WBC 0 X 10*3/uL (0.00-0.01); Neutrophils # (A) 3.42 X 10*3/uL (1.80-7.70); Neutrophils % (A) 58.5 %; Platelet Count 175 X 10*3/uL (140-440); RBC 3.64 X 10*6/uL (4.10-5.20); RDW 11.9 % (11.5-14.5); WBC 5.86 X 10*3/uL (4.50-10.00)
[2023-10-28 09:37] VITALS: RESP 16
[2023-10-28 13:26] VITALS: BP 124/72; PULSE 70; TEMP 97.3
--- NOTE | 2023-10-28 13:55 | P.DS ---
Providers Date of admission: 10/25/23 02:06 Expected date of discharge: 10/28/23 Attending physician: Bib Billings Consults: 10/25/23 02:06 Consult Physician Routine Consulting Provider: Kiran Taylor Consult Reason/Comments: medicine consult Do you want consulting provider notified?: Yes Primary care physician: Stated None Hospital Course: Discharge diagnosis 1. Acute diverticulitis of the sigmoid colon with microperforation and intramural abscess Hospital course This is a 83-year-old female present with left lower quadrant abdominal pain. CT scan abdomen and pelvis had reported perforated acute diverticulitis of the sigmoid colon with a 3 cm intramural abscess in the sigmoid colon wall. Patient was started on antibiotics. White count has normalized. Her pain has resolved. She is tolerating diet. She is afebrile. She has been up and ambulating. She is stable for discharge. She will be discharged with oral antibiotics. Please refer to chart for any further details. Physician [employer] Tier note has been reviewed by physician. Signing provider agrees with the documented findings, assessment, and plan of care. Patient Condition at Discharge: Stable Plan - Discharge Summary Discharge Rx Participant: No New Discharge Prescriptions: New metroNIDAZOLE [Flagyl] 500 mg PO TID 10 Days #30 tab Levofloxacin [Levaquin] 500 mg PO DAILY 10 Days #10 tab Continue Cholecalciferol [Vitamin D3 (25 Mcg = 1000 Iu)] 25 mcg PO DAILY Atorvastatin [Lipitor] 40 mg PO DIRECTED Focus Factor 1 cap PO DAILY [place]-3/Dha/Epa/Fish Oil [Fish Oil 1,000 mg Softgel] 1 cap PO DAILY Cranberry(Unknown Dose) 1 tab PO DAILY Lutein 20 mg PO DAILY Discharge Medication List Atorvastatin [Lipitor] 40 mg PO DIRECTED 08/30/22 [History] Cholecalciferol [Vitamin D3 (25 Mcg = 1000 Iu)] 25 mcg PO DAILY 08/30/22 [Hi story] Cranberry(Unknown Dose) 1 tab PO DAILY 10/25/23 [History] Focus Factor 1 cap PO DAILY 10/25/23 [History] Lutein 20 mg PO DAILY 10/25/23 [History] [place]-3/Dha/Epa/Fish Oil [Fish Oil 1,000 mg Softgel] 1 cap PO DAILY 10/25/23 [History] Levofloxacin [Levaquin] 500 mg PO DAILY 10 Days #10 tab 10/28/23 [Rx] metroNIDAZOLE [Flagyl] 500 mg PO TID 10 Days #30 tab 10/28/23 [Rx] Follow up Appointment(s)/Referral(s): None,Stated [Primary Care Provider] - 1-2 days Bib Billings MD [STAFF PHYSICIAN] - 1 Week Activity/Diet/Wound Care/Special Instructions: Discharge back to [facility] for Regular diet Avoid eating seeds and nuts Discharge Disposition: HOME SELF-CARE
--- NOTE | 2023-10-28 20:52 | PN ---
PROGRESS NOTE SUBJECTIVE: This is an 83-year-old white female. She still remains on Flagyl and Levaquin. Waiting for surgery to clear her for discharge. Dr. Zaida Hicks saw her for surgery who recommended diverticulitis microperforation, afebrile, ambulating or antibiotics. Follow up as an outpatient. Prognosis guarded, please see further orders. Discharge med list was done. Please see further orders. MMODL / IJN: [id number] /
== END 2023-10-28 19:44 | disposition home or self-care (01) | DRG 392 ==
LOC: EC 23:57 → 5NMEDONC 10-25 02:06
PROVIDERS: ADMIT Surgery; ATTEND Surgery
DX: K57.20 Diverticulitis of large intestine with perforation and abscess without bleeding (principal); E27.8 Other specified disorders of adrenal gland; E78.5 Hyperlipidemia, unspecified; K21.9 Gastro-esophageal reflux disease without esophagitis; Z79.899 Other long term (current) drug therapy
CPT/HCPCS: 36415; 71045; 74177; 80048; 80053; 81001; 83605; 85025; 85610; 85730; 93005; 96365; 96366; 96375; 99285

== ENCOUNTER 2023-12-02 13:16 | Emergency (ER) | payer MEDICARE ==
--- NOTE | 2023-12-02 13:39 | ED ---
Altered Mental Status HPI - General Chief Complaint: Neuro Symptoms/Deficit Stated Complaint: flu like symptoms Time Seen by Provider: 12/02/23 13:38 Source: patient, RN notes reviewed, old records reviewed Mode of arrival: EMS Limitations: no limitations - History of Present Illness Initial Comments: This is a 83-year-old female to the ER for evaluation of dizziness lightheadedness altered mental status weakness not acting appropriate not getting out of bed for the last few days. Patient's not acting himself and comes to the ER for evaluation. She has no specific complaints of headache chest pain shortness of breath or abdominal pain. No nausea vomiting diarrhea or fevers. No recent change in medications MD Complaint: altered mental status, confusion, decreased responsiveness, weakness -: days(s) (3) Consistency of Symptoms: waxing and waning, getting worse Associated Symptoms: weakness - Related Data Home Medications Medication Instructions Recorded Confirmed Atorvastatin [Lipitor] 40 mg PO DIRECTED 08/30/22 12/02/23 Cholecalciferol [Vitamin D3 (25 25 mcg PO DAILY 08/30/22 12/02/23 Mcg = 1000 Iu)] Cranberry(Unknown Dose) 1 tab PO DAILY 10/25/23 12/02/23 Focus Factor 1 cap PO DAILY 10/25/23 12/02/23 Lutein 20 mg PO DAILY 10/25/23 12/02/23 [place]-3/Dha/Epa/Fish Oil [Fish Oil 1 cap PO DAILY 10/25/23 12/02/23 1,000 mg Softgel] Donepezil [Aricept] 5 mg PO DIRECTED 12/02/23 12/02/23 Allergies Allergy/AdvReac Type Severity Reaction Status Date / Time No Known Allergies Allergy Verified 10/25/23 11:04 Review of Systems ROS Statement: Those systems with pertinent positive or pertinent negative responses have been documented in the HPI. ROS Other: All systems not noted in ROS Statement are negative. 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 Absent: scleral icterus, conjunctival injection, periorbital swelling ENT exam: Present: normal exam, mucous membranes moist Neck exam: Present: normal inspection. Absent: tenderness, meningismus, lymphadenopathy Respiratory exam: Present: normal lung sounds bilaterally. Absent: respiratory distress, wheezes, rales, rhonchi, stridor Cardiovascular Exam: Present: regular rate, normal rhythm, normal heart sounds. Absent: systolic murmur, diastolic murmur, rubs, gallop, clicks GI/Abdominal exam: Present: soft, normal bowel sounds. Absent: distended, tenderness, guarding, rebound, rigid Extremities exam: Present: normal inspection, full ROM, normal capillary refill. Absent: tenderness, pedal edema, joint swelling, calf tenderness Back exam: Present: normal inspection Neurological exam: Present: alert, oriented X3, CN II-XII intact Psychiatric exam: Present: normal affect, normal mood Skin exam: Present: warm, dry, intact, normal color. Absent: rash Course Vital Signs 12/02/23 12/02/23 12/02/23 13:32 17:35 18:57 Temperature 98.7 F 97.9 F Pulse Rate 95 115 H 116 H Respiratory 16 20 18 Rate Blood Pressure 113/71 114/68 118/86 O2 Sat by Pulse 95 98 96 Oximetry - Reevaluation(s) Reevaluation #1: Medical records reviewed Reevaluation #2: Patient symptoms improved Reevaluation #3: Patient informed of results questions answered Reevaluation #4: Was pt. sent in by a medical professional or institution (, PA, [employer]ER, urgent care, hospital, or detention...) When possible be specific @ -no Did you speak to anyone other than the patient for history (EMS, parent, family, police, friend...)? What history was obtained from this source @ -no Did you review nursing and triage notes (agree or disagree)? Why? @ -agree Are old charts reviewed (outside hosp., previous admission, EMS record, old EKG, old radiological studies, urgent care reports/EKG's, detention records)? Report findings @ -yes Differential Diagnosis (chest pain, altered mental status, abdominal pain women, abdominal pain men, vaginal bleeding, weakness, fever, dyspnea, syncope, headache, dizziness, GI bleed, back pain, seizure, CVA, palpatations, mental health, musculoskeletal)? @ -prior EKG interpreted by me (3pts min.). @ -yes X-rays interpreted by me (1pt min.). @ -yes negative for acute disease CT interpreted by me (1pt min.). @ -Yes negative for acute disease U/S interpreted by me (1pt. min.). @ -no What testing was considered but not performed or refused? (CT, X-rays, U/S, labs)? Why? @ -none What meds were considered but not given or refused? Why? @ -none Did you discuss the management of the patient with other professionals (professionals i.e. , PA, [employer]ADER, lab, RT, psych nurse, social service worker, legal archivist, teacher, investigation officer, family independence case manager)? Give summary @ -no Was smoking cessation discussed for >3mins.? @ -no Was critical care preformed (if so, how long)? @ -no Were there social determinants of health that impacted care today? How? (Homelessness, low income, unemployed, alcoholism, drug addiction, transportation, low edu. Level, literacy, decrease access to med. care, usp, rehab)? @ -none Was there de-escalation of care discussed even if they declined (Discuss DNR or withdrawal of care, Hospice)? DNR status @ -no What co-morbidities impacted this encounter? (DM, HTN, Smoking, COPD, CAD, Cancer, CVA, ARF, Chemo, Hep., AIDS, mental health diagnosis, sleep apnea, morbid obesity)? @ -none Was patient admitted / discharged? Hospital course, mention meds given and route, prescriptions, significant lab abnormalities, going to OR and other pertinent info. @ - 83 female to the ER for evaluation of altered mental status and not acting appropriate for the last 3 days. Patient has no acute findings here in the ER feels well and can be discharged home Discharge Undiagnosed new problem with uncertain prognosis? @ -no Drug Therapy requiring intensive monitoring for toxicity (Heparin, Nitro, Insulin, Cardizem)? @ -no Were any procedures done? @ -no Diagnosis/symptom? @ -Weakness and altered mental status Acute, or Chronic, or Acute on Chronic? @ -Acute Uncomplicated (without systemic symptoms) or Complicated (systemic symptoms)? @ -Complicated Side effects of treatment? @ -no Exacerbation, Progression, or Severe Exacerbation? @ -exacerbation Poses a threat to life or bodily function? How? (Chest pain, [place], [place], pneumonia, PE, COPD, DKA, ARF, appy, cholecystitis, CVA, Diverticulitis, Homicidal, Suicidal, threat to staff... and all critical care pts) @ -yes with extremes of age Reevaluation #5: Differential Altered Mental Status: Hypoglycemia, DKA, hypercapnia, ETOH, overdose, CO poisoning, trauma, myxedema coma, HTN encephalopathy, infection, encephalitis, psychosis, intercranial hemorrhage, hepatic encephalopathy, meningitis, CVA, this is not meant to be an all-inclusive list Medical Decision Making - Medical Decision Making 83 female to the ER for evaluation of altered mental status and not acting appropriate for the last 3 days. Patient has no acute findings here in the ER feels well and can be discharged home - Lab Data Result diagrams: 12/02/23 14:24 12/02/23 14:24 Lab Results 12/02/23 12/02/23 12/02/23 Range/Units 14:24 14:24 14:24 WBC 14.2 H (3.8-10.6) k/uL RBC 4.12 (3.80-5.40) m/uL Hgb 13.6 (11.4-16.0) gm/dL Hct 41.1 (34.0-46.0) % MCV 99.7 (80.0-100.0) fL MCH 33.0 (25.0-35.0) pg MCHC 33.1 (31.0-37.0) g/dL RDW 12.0 (11.5-15.5) % Plt Count 172 (150-450) k/uL MPV 7.9 Neutrophils % 86 % Lymphocytes % 10 % Monocytes % 3 % Eosinophils % 0 % Basophils % 0 % Neutrophils # 12.3 H (1.3-7.7) k/uL Lymphocytes # 1.4 (1.0-4.8) k/uL Monocytes # 0.4 (0-1.0) k/uL Eosinophils # 0.0 (0-0.7) k/uL Basophils # 0.1 (0-0.2) k/uL PT 11.0 (10.0-12.5) sec INR 1.0 (<1.2) APTT 24.7 (22.0-30.0) sec Sodium (137-145) mmol/L Potassium (3.5-5.1) mmol/L Chloride (98-107) mmol/L Carbon Dioxide (22-30) mmol/L Anion Gap mmol/L BUN (7-17) mg/dL Creatinine (0.52-1.04) mg/dL Est GFR (CKD-EPI)AfAm (>60 ml/min/1.73 sqM) Est GFR (CKD-EPI)NonAf (>60 ml/min/1.73 sqM) Glucose (74-99) mg/dL Calcium (8.4-10.2) mg/dL Total Bilirubin (0.2-1.3) mg/dL AST (14-36) U/L ALT (4-34) U/L Alkaline Phosphatase (38-126) U/L Ammonia (<30) umol/L Troponin I (0.000-0.034) ng/mL Total Protein (6.3-8.2) g/dL Albumin (3.5-5.0) g/dL Urine Color Urine Appearance (Clear) Urine pH (5.0-8.0) Ur Specific [place] (1.001-1.035) Urine Protein (Negative) Urine Glucose (UA) (Negative) Urine Ketones (Negative) Urine Blood (Negative) Urine Nitrite (Negative) Urine Bilirubin (Negative) Urine Urobilinogen (<2.0) mg/dL Ur Leukocyte Esterase (Negative) Urine Opiates Screen (NotDetected) Ur Oxycodone Screen (NotDetected) Urine Methadone Screen (NotDetected) Ur Barbiturates Screen (NotDetected) U Tricyclic Antidepress (NotDetected) Ur Phencyclidine Scrn (NotDetected) Ur Amphetamines Screen (NotDetected) U Methamphetamines Scrn (NotDetected) U Benzodiazepines Scrn (NotDetected) Urine Cocaine Screen (NotDetected) U Marijuana (THC) Screen (NotDetected) Influenza Type A (PCR) (Not Detectd) Influenza Type B (PCR) (Not Detectd) RSV (PCR) (Not Detectd) SARS-CoV-2 (PCR) (Not Detectd) 12/02/23 12/02/23 12/02/23 Range/Units 14:24 14:24 14:24 WBC (3.8-10.6) k/uL RBC (3.80-5.40) m/uL Hgb (11.4-16.0) gm/dL Hct (34.0-46.0) % MCV (80.0-100.0) fL MCH (25.0-35.0) pg MCHC (31.0-37.0) g/dL RDW (11.5-15.5) % Plt Count (150-450) k/uL MPV Neutrophils % % Lymphocytes % % Monocytes % % Eosinophils % % Basophils % % Neutrophils # (1.3-7.7) k/uL Lymphocytes # (1.0-4.8) k/uL Monocytes # (0-1.0) k/uL Eosinophils # (0-0.7) k/uL Basophils # (0-0.2) k/uL PT (10.0-12.5) sec INR (<1.2) APTT (22.0-30.0) sec Sodium 138 (137-145) mmol/L Potassium 3.8 (3.5-5.1) mmol/L Chloride 103 (98-107) mmol/L Carbon Dioxide 28 (22-30) mmol/L Anion Gap 7 mmol/L BUN 12 (7-17) mg/dL Creatinine 0.65 (0.52-1.04) mg/dL Est GFR (CKD-EPI)AfAm >90 (>60 ml/min/1.73 sqM) Est GFR (CKD-EPI)NonAf 82 (>60 ml/min/1.73 sqM) Glucose 93 (74-99) mg/dL Calcium 8.7 (8.4-10.2) mg/dL Total Bilirubin 1.3 (0.2-1.3) mg/dL AST 23 (14-36) U/L ALT 13 (4-34) U/L Alkaline Phosphatase 71 (38-126) U/L Ammonia <9 (<30) umol/L Troponin I <0.012 (0.000-0.034) ng/mL Total Protein 5.9 L (6.3-8.2) g/dL Albumin 3.3 L (3.5-5.0) g/dL Urine Color Urine Appearance (Clear) Urine pH (5.0-8.0) Ur Specific [place] (1.001-1.035) Urine Protein (Negative) Urine Glucose (UA) (Negative) Urine Ketones (Negative) Urine Blood (Negative) Urine Nitrite (Negative) Urine Bilirubin (Negative) Urine Urobilinogen (<2.0) mg/dL Ur Leukocyte Esterase (Negative) Urine Opiates Screen (NotDetected) Ur Oxycodone Screen (NotDetected) Urine Methadone Screen (NotDetected) Ur Barbiturates Screen (NotDetected) U Tricyclic Antidepress (NotDetected) Ur Phencyclidine Scrn (NotDetected) Ur Amphetamines Screen (NotDetected) U Methamphetamines Scrn (NotDetected) U Benzodiazepines Scrn (NotDetected) Urine Cocaine Screen (NotDetected) U Marijuana (THC) Screen (NotDetected) Influenza Type A (PCR) (Not Detectd) Influenza Type B (PCR) (Not Detectd) RSV (PCR) (Not Detectd) SARS-CoV-2 (PCR) (Not Detectd) 12/02/23 Range/Units 14:24 WBC (3.8-10.6) k/uL RBC (3.80-5.40) m/uL Hgb (11.4-16.0) gm/dL Hct (34.0-46.0) % MCV (80.0-100.0) fL MCH (25.0-35.0) pg MCHC (31.0-37.0) g/dL RDW (11.5-15.5) % Plt Count (150-450) k/uL MPV Neutrophils % % Lymphocytes % % Monocytes % % Eosinophils % % Basophils % % Neutrophils # (1.3-7.7) k/uL Lymphocytes # (1.0-4.8) k/uL Monocytes # (0-1.0) k/uL Eosinophils # (0-0.7) k/uL Basophils # (0-0.2) k/uL PT (10.0-12.5) sec INR (<1.2) APTT (22.0-30.0) sec Sodium (137-145) mmol/L Potassium (3.5-5.1) mmol/L Chloride (98-107) mmol/L Carbon Dioxide (22-30) mmol/L Anion Gap mmol/L BUN (7-17) mg/dL Creatinine (0.52-1.04) mg/dL Est GFR (CKD-EPI)AfAm (>60 ml/min/1.73 sqM) Est GFR (CKD-EPI)NonAf (>60 ml/min/1.73 sqM) Glucose (74-99) mg/dL Calcium (8.4-10.2) mg/dL Total Bilirubin (0.2-1.3) mg/dL AST (14-36) U/L ALT (4-34) U/L Alkaline Phosphatase (38-126) U/L Ammonia (<30) umol/L Troponin I (0.000-0.034) ng/mL Total Protein (6.3-8.2) g/dL Albumin (3.5-5.0) g/dL Urine Color Urine Appearance (Clear) Urine pH (5.0-8.0) Ur Specific [place] (1.001-1.035) Urine Protein (Negative) Urine Glucose (UA) (Negative) Urine Ketones (Negative) Urine Blood (Negative) Urine Nitrite (Negative) Urine Bilirubin (Negative) Urine Urobilinogen (<2.0) mg/dL Ur Leukocyte Esterase (Negative) Urine Opiates Screen (NotDetected) Ur Oxycodone Screen (NotDetected) Urine Methadone Screen (NotDetected) Ur Barbiturates Screen (NotDetected) U Tricyclic Antidepress (NotDetected) Ur Phencyclidine Scrn (NotDetected) Ur Amphetamines Screen (NotDetected) U Methamphetamines Scrn (NotDetected) U Benzodiazepines Scrn (NotDetected) Urine Cocaine Screen (NotDetected) U Marijuana (THC) Screen (NotDetected) Influenza Type A (PCR) Not Detected (Not Detectd) Influenza Type B (PCR) Not Detected (Not Detectd) RSV (PCR) Not Detected (Not Detectd) SARS-CoV-2 (PCR) Not Detected (Not Detectd) - EKG Data -: EKG Interpreted by Me (EKG is sinus 91 LA 143 QRS 89 QTc 385) - Radiology Data Radiology results: report reviewed (CT brain C-spine chest x-ray is negative for acute disease), image reviewed Disposition Clinical Impression: Altered mental state Disposition: HOME SELF-CARE Condition: Good Instructions (If sedation given, give patient instructions): Altered Mental Status (ED) Is patient prescribed a controlled substance at d/c from ED?: No Referrals: None,Stated [Primary Care Provider] - 1-2 days Time of Disposition: 18:40
[2023-12-02] MEDS: SODIUM CHLORIDE 0.9% 1,000 ML IV ONE (14:39)
[2023-12-02 14:52] LABS: Basophils # (A) 0.1 k/uL (0-0.2); Basophils % (A) 0 %; Eosinophils % (A) 0 %; HCT 41.1 % (34.0-46.0); HGB 13.6 gm/dL (11.4-16.0); Lymphocytes # (A) 1.4 k/uL (1.0-4.8); Lymphocytes % (A) 10 %; MCHC 33.1 g/dL (31.0-37.0); MCV 99.7 fL (80.0-100.0); Mean Platelet Volume 7.9; Monocytes # (A) 0.4 k/uL (0-1.0); Monocytes % (A) 3 %; Neutrophils # (A) 12.3 k/uL (1.3-7.7); Neutrophils % (A) 86 %; Platelet Count 172 k/uL (150-450); RBC 4.12 m/uL (3.80-5.40); WBC 14.2 k/uL (3.8-10.6)
[2023-12-02 15:06] LABS: ALT 13 U/L (4-34); AST 23 U/L (14-36); African American GFR (CKD) >90 (>60 ml/min/1.73 sqM); Albumin 3.3 g/dL (3.5-5.0); Alkaline Phosphatase 71 U/L (38-126); Anion Gap 7 mmol/L; Blood Urea Nitrogen 12 mg/dL (7-17); Calcium 8.7 mg/dL (8.4-10.2); Carbon Dioxide 28 mmol/L (22-30); Chloride 103 mmol/L (98-107); Glucose 93 mg/dL (74-99); Non-African American GFR(CKD) 82 (>60 ml/min/1.73 sqM); Potassium 3.8 mmol/L (3.5-5.1); Sodium 138 mmol/L (137-145); Total Bilirubin 1.3 mg/dL (0.2-1.3); Total Protein 5.9 g/dL (6.3-8.2)
[2023-12-02 15:11] LABS: Partial Thromboplastin Time 24.7 sec (22.0-30.0)
--- NOTE | 2023-12-02 15:35 | CT ---
EXAMINATION TYPE: CT brain martín gary DATE OF EXAM: 12/02/2023 COMPARISON: 08/30/2022 History: AMS CT DLP: 1298.1 mGycm Automated exposure control for dose reduction was used. TECHNIQUE: CT scan of the head and cervical spine are performed without contrast. FINDINGS Head CT: The ventricles, basal cisterns and sulci of the bases are moderately enlarged consistent with moderat e atrophy inappropriate for the patient's age. There is no mass effect or shift in midline structures . No abnormal density is seen throughout the brain parenchyma and there is no acute intra or extra-axia l hemorrhage. There is a heavily calcified extra-axial mass in the left frontal region which was seen previously an d is consistent with a calcified meningioma. The posterior fossa including the brainstem, fourth ventricle and cerebellar pontine angles appear gr ossly normal. Intraorbital contents appear normal and symmetric. The paranasal sinuses and mastoid air cells are well aerated. CT cervical spine: The craniovertebral junction relationships and prevertebral soft tissues are normal. The cervical vertebral segments are normal in height and alignment. There is no fracture or subluxati on. There is moderate to marked degenerative disc disease at the C4-5, C5-6 and C6-7 levels where there i s moderate to marked disc space narrowing and spondylosis. There is multilevel facet and uncovertebral joint degeneration resulting in multilevel bony neural fo raminal encroachment as follows; mild at C4-5 bilaterally and mild at C5-6 on the left. Impression 1. No acute bleed or mass effect intracranially. 2. Calvarium intact. 3. Degenerative changes in lower cervical spine but no evidence of acute trauma 4. Stable calcified meningioma left frontal region.
--- NOTE | 2023-12-02 16:52 | XR ---
EXAMINATION TYPE: XR chest 1V DATE OF EXAM: 12/02/2023 COMPARISON: 10/25/2023 INDICATION: Acute mental status changes TECHNIQUE: Single frontal view of the chest is obtained. FINDINGS: The heart size is normal. The pulmonary vasculature is normal. The lungs are clear. IMPRESSION: 1. No acute pulmonary process.
[2023-12-02 18:02] VITALS: TEMP 97.9
[2023-12-02] MEDS: SODIUM CHLORIDE 0.9% 1,000 ML IV STA (18:07)
[2023-12-02 19:00] VITALS: BP 118/86; PULSE 116; RESP 18
== END 2023-12-02 19:25 | disposition home or self-care (01) ==
LOC: EC 13:16
DX: R41.82 Altered mental status, unspecified (principal); I11.0 Hypertensive heart disease with heart failure; I50.9 Heart failure, unspecified; E78.5 Hyperlipidemia, unspecified; Z79.899 Other long term (current) drug therapy; Z20.822 Contact with and (suspected) exposure to COVID-19
CPT/HCPCS: 36415; 70450; 71045; 72125; 80053; 80306; 81003; 82140; 84484; 85025; 85610; 85730; 87636; 93005; 96360; 96361; 99285

== ENCOUNTER 2024-01-19 08:30 | Inpatient (IN) | payer MEDICARE ==
[2024-01-24] MEDS ORDERED: HEPARIN SODIUM,PORCINE 5,000 UNIT/ML 1 ML VIAL SQ PRN (05:00)
[2024-01-24] MEDS ORDERED: metroNIDAZOLE-NS PMX 500 MG in SALINE 1 100ML.BAG IVPB PRN (05:00)
[2024-01-24] MEDS ORDERED: MIDAZOLAM 2 MG/2 ML VIAL IV PRN (06:39)
[2024-01-24] MEDS ORDERED: HYDROmorphone 0.5 MG/0.5 ML SYRINGE IVP PRN (06:39)
[2024-01-24] MEDS ORDERED: LIDOCAINE 1% (10MG/ML) FOR IV START INTRADERMA PRN (06:39)
[2024-01-24] MEDS: LACTATED RINGERS 1,000 ML IV SCH (07:22)
[2024-01-24 08:02] LABS: Basophils % (A) 0 %; Eosinophils # (A) 0.2 k/uL (0-0.7); Eosinophils % (A) 1 %; HCT 41.4 % (34.0-46.0); HGB 13.5 gm/dL (11.4-16.0); Lymphocytes # (A) 1.1 k/uL (1.0-4.8); Lymphocytes % (A) 7 %; MCH 31.7 pg (25.0-35.0); MCHC 32.7 g/dL (31.0-37.0); Mean Platelet Volume 7.8; Monocytes # (A) 0.7 k/uL (0-1.0); Monocytes % (A) 5 %; Neutrophils % (A) 86 %; Platelet Count 310 k/uL (150-450); RBC 4.27 m/uL (3.80-5.40); RDW 11.9 % (11.5-15.5); WBC 15.2 k/uL (3.8-10.6)
[2024-01-24] MEDS: DEXAMETHASONE SOD PHOSPHATE 4 MG/ML 1 ML VIAL IV ONE (08:02)
[2024-01-24] MEDS: ACETAMINOPHEN TAB 500 MG TAB PO PRN (08:02)
[2024-01-24] MEDS: ONDANSETRON 4 MG/2 ML VIAL IVP ONE (08:02)
[2024-01-24] MEDS: fentaNYL (PF) 50 MCG/ML 2 ML AMP IVP ONE (08:08)
[2024-01-24 08:19] LABS: ALT 17 U/L (4-34); African American GFR (CKD) >90 (>60 ml/min/1.73 sqM); Anion Gap 8 mmol/L; Blood Urea Nitrogen 11 mg/dL (7-17); Carbon Dioxide 29 mmol/L (22-30); Chloride 101 mmol/L (98-107); Glucose 140 mg/dL (74-99); Non-African American GFR(CKD) 84 (>60 ml/min/1.73 sqM); Sodium 138 mmol/L (137-145)
[2024-01-24 08:22] LABS: AST 28 U/L (14-36); Albumin 3.6 g/dL (3.5-5.0); Potassium 4.3 mmol/L (3.5-5.1); Total Bilirubin 1.2 mg/dL (0.2-1.3); Total Protein 6.8 g/dL (6.3-8.2)
[2024-01-24 08:23] LABS: Alkaline Phosphatase 87 U/L (38-126)
--- NOTE | 2024-01-24 08:38 | P.GSHP ---
History of Present Illness H&P Date: 01/24/24 Chief Complaint: Diverticulitis This is a 3-year-old female with previous history of diverticulitis. Patient resents today for low anterior resection. Past Medical History Past Medical History: Cancer, Heart Failure, Dementia, Hyperlipidemia, Hypertension, Musculoskeletal Disorder, Osteoarthritis (OA) Additional Past Medical History / Comment(s): Beginnings of dementia. Diverticulitis. Intracranial meningioma. Lumbar foraminal stenosis with myelopathy. Vitamin D Deficiency. Hx skin cancer. Varicose veins. 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 Past Anesthesia/Blood Transfusion Reactions: No Reported Reaction Smoking Status: Never smoker - Past Family History Father History Unknown: Yes Mother History Unknown: Yes Son(s) Family Medical History: Cancer Medications and Allergies Home Medications Medication Instructions Recorded Confirmed Type Atorvastatin [Lipitor] 40 mg PO HS 08/30/22 01/24/24 History Cholecalciferol [Vitamin D3 (25 25 mcg PO DAILY 08/30/22 01/24/24 History Mcg = 1000 Iu)] Cranberry(Unknown Dose) 1 tab PO DAILY 10/25/23 01/24/24 History Focus Factor 1 cap PO DAILY 10/25/23 01/24/24 History Lutein 20 mg PO DAILY 10/25/23 01/24/24 History [place]-3/Dha/Epa/Fish Oil [Fish Oil 1 cap PO DAILY 10/25/23 01/24/24 History 1,000 mg Softgel] Donepezil [Aricept] 5 mg PO HS 12/02/23 01/24/24 History Calcium (Unknown Dose) 1 tab PO DAILY 01/19/24 01/24/24 History Ginkgo Biloba (Unknown Dose) 1 tab PO DAILY 01/19/24 01/24/24 History Allergies Allergy/AdvReac Type Severity Reaction Status Date / Time pineapple Allergy Unknown Verified 01/24/24 07:30 sulfite Allergy Unknown Verified 01/24/24 07:30 Surgical - Exam Vital Signs Temp Pulse Resp BP Pulse Ox 97.9 F 95 18 133/62 97 01/24/24 07:22 01/24/24 07:22 01/24/24 07:22 01/24/24 07:22 01/24/24 07:22 - General well developed, well nourished, no distress - Eyes PERRL - ENT normal pinna - Neck no masses - Respiratory normal expansion - Cardiovascular Rhythm: regular - Abdomen Abdomen: soft, non tender Results - Labs 01/24/24 07:56 01/24/24 07:56 Abnormal Lab Results - Last 24 Hours (Table) 01/24/24 01/24/24 Range/Units 07:56 07:56 WBC 15.2 H (3.8-10.6) k/uL Neutrophils # 13.0 H (1.3-7.7) k/uL Glucose 140 H (74-99) mg/dL Diabetes panel 01/24/24 Range/Units 07:56 Sodium 138 (137-145) mmol/L Potassium 4.3 (3.5-5.1) mmol/L Chloride 101 (98-107) mmol/L Carbon Dioxide 29 (22-30) mmol/L BUN 11 (7-17) mg/dL Creatinine 0.60 (0.52-1.04) mg/dL Glucose 140 H (74-99) mg/dL Calcium 9.0 (8.4-10.2) mg/dL AST 28 (14-36) U/L ALT 17 (4-34) U/L Alkaline Phosphatase 87 (38-126) U/L Total Protein 6.8 (6.3-8.2) g/dL Albumin 3.6 (3.5-5.0) g/dL Calcium panel 01/24/24 Range/Units 07:56 Calcium 9.0 (8.4-10.2) mg/dL Albumin 3.6 (3.5-5.0) g/dL Pituitary panel 01/24/24 Range/Units 07:56 Sodium 138 (137-145) mmol/L Potassium 4.3 (3.5-5.1) mmol/L Chloride 101 (98-107) mmol/L Carbon Dioxide 29 (22-30) mmol/L BUN 11 (7-17) mg/dL Creatinine 0.60 (0.52-1.04) mg/dL Glucose 140 H (74-99) mg/dL Calcium 9.0 (8.4-10.2) mg/dL Adrenal panel 01/24/24 Range/Units 07:56 Sodium 138 (137-145) mmol/L Potassium 4.3 (3.5-5.1) mmol/L Chloride 101 (98-107) mmol/L Carbon Dioxide 29 (22-30) mmol/L BUN 11 (7-17) mg/dL Creatinine 0.60 (0.52-1.04) mg/dL Glucose 140 H (74-99) mg/dL Calcium 9.0 (8.4-10.2) mg/dL Total Bilirubin 1.2 (0.2-1.3) mg/dL AST 28 (14-36) U/L ALT 17 (4-34) U/L Alkaline Phosphatase 87 (38-126) U/L Total Protein 6.8 (6.3-8.2) g/dL Albumin 3.6 (3.5-5.0) g/dL Assessment and Plan Assessment: Diverticulitis. We'll perform a low anterior resection.
[2024-01-24] MEDS ORDERED: NALOXONE 0.4 MG/ML 1 ML VIAL IV PRN (08:43)
--- NOTE | 2024-01-24 08:43 | P.ANPRN ---
Procedure Note - Anesthesia - Epidural/Spinal Epidural Continuous Time Out Performed: Yes Date of Procedure: 01/24/24 Procedure Start Time: 08:08 Procedure Stop Time: 08:18 Location of Patient: PreOp Indication: Acute Post-Operative Pain, Analgesia, Requested by Surgeon Sedation Type: Sedate with meaningful contact maintained Preparation: Sterile Prep Position: Sitting Catheter: Indwelling Needle Guage: 18 Narrative: Test dose- 1.5% lidocaine with epinephrine-- Negative sign/symptoms. At L4-5 level catheter. Negatve blood,CSF, paresthesia. Blood Aspirated: No Pain Paresthesia on Injection Noted: No Events: Uneventful and Well Tolerated
[2024-01-24] MEDS ORDERED: PHENYLEPHRINE 10 MG/ML VIAL ONE (09:29)
[2024-01-24] MEDS ORDERED: GLYCOPYRROLATE 0.2 MG/ML 2 ML VIAL ONE (09:29)
[2024-01-24] MEDS ORDERED: ROCURONIUM 10 MG/ML (5 ML VIAL) IV ONE (09:29)
[2024-01-24] MEDS ORDERED: fentaNYL (PF) 50 MCG/ML 2 ML AMP ONE (09:29)
[2024-01-24] MEDS ORDERED: NEOSTIGMINE 1 MG/ML 10 ML VIAL ONE (09:29)
[2024-01-24] MEDS ORDERED: PROPOFOL 10 MG/ML 20 ML VIAL IV ONE (09:29)
[2024-01-24] MEDS ORDERED: SUCCINYLCHOLINE CHLORIDE 200 MG/10 ML VIAL IV ONE (09:29)
[2024-01-24] MEDS ORDERED: LIDOCAINE 1% INJ 10MG/ML (20 ML MDV) ONE (09:29)
[2024-01-24] MEDS: IV FLUID CONTINUATION 1,000 ML IV ONE (10:30)
[2024-01-24] MEDS ORDERED: HYDROmorphone 1 MG/ML 1 ML SYRINGE IVP PRN (10:57)
[2024-01-24 15:51] LABS: Basophils % (A) 0 %; Eosinophils % (A) 0 %; HCT 37.6 % (34.0-46.0); HGB 12.4 gm/dL (11.4-16.0); Lymphocytes # (A) 0.5 k/uL (1.0-4.8); Lymphocytes % (A) 3 %; MCH 32.1 pg (25.0-35.0); MCHC 32.8 g/dL (31.0-37.0); MCV 97.8 fL (80.0-100.0); Mean Platelet Volume 7.8; Monocytes # (A) 0.5 k/uL (0-1.0); Monocytes % (A) 4 %; Neutrophils # (A) 14.2 k/uL (1.3-7.7); Neutrophils % (A) 93 %; Platelet Count 261 k/uL (150-450); RBC 3.85 m/uL (3.80-5.40); RDW 12.2 % (11.5-15.5); WBC 15.3 k/uL (3.8-10.6)
[2024-01-24] MEDS: D5-0.45% NACL WITH KCL 20MEQ/L 1,000 ML IV SCH (16:49)
[2024-01-24] MEDS: DONEPEZIL 5 MG TAB PO SCH (20:06)
[2024-01-24] MEDS: ATORVASTATIN 40 MG TAB PO SCH (20:06)
[2024-01-24] MEDS: ONDANSETRON 4 MG/2 ML VIAL IVP PRN (23:11)
[2024-01-25] MEDS: METOCLOPRAMIDE 5 MG/ML 2 ML VIAL IVP PRN (00:25)
[2024-01-25] MEDS: ROPIVACAINE 250 MG, HYDROMORPHONE (PF) 5 MG in SODIUM CHLORIDE 0.9% 200 ML EPIDURAL PRN (04:57)
--- NOTE | 2024-01-25 06:57 | P.PN ---
Progress Note - Text Progress Note Date: 01/25/24 POD 1 from low anterior resection. Epidural catheter in place running at 11cc/hr. Patient up in chair this morning, awake, and alert. She is confused, I spoke with the RN and says she has been that way since she met her at 7pm. The RN has not met the family and is unsure of her baseline. The patient has been able to stand and walk to the chair, Pedersen in place per surgery team, and has not required any pain medication over night. Site is clean and dry, dressing intact. Seems to be doing well, I am unsure if the confusion is due to the epidural hydromorphone or this is her baseline vs post op delirium. I asked the RN to pass the message to day shift and discuss with family, if this is not her baseline we should reduce the epidural to 6cc/hr and see if there is any difference after a few hours. Call anesthesia with questions.
[2024-01-25] MEDS: CHOLECALCIFEROL 25 MCG (1000 IU) TABLET PO SCH (08:19)
[2024-01-25] MEDS: ALVIMOPAN 12 MG CAPSULE PO SCH (08:19)
--- NOTE | 2024-01-25 16:08 | P.PN ---
Subjective Progress Note Date: 01/25/24 CHIEF COMPLAINT: Diverticulitis HISTORY OF PRESENT ILLNESS: Patient is postop day #1 status post lower anterior resection, takedown splenic flexure and left hemicolectomy. She has epidural in place. Pain is controlled. Afebrile. Mildly tachycardic early this morning. WBC 15.3 Hgb 12.4 patient denies any flatus. Denies any nausea or vomiting. She is sitting at bedside chair. PHYSICAL EXAM: VITAL SIGNS: Reviewed. GENERAL: Well-developed in no acute distress. ABDOMEN: Soft. Nondistended. Prevana wound vac intact NEUROLOGIC: Alert and oriented. Cranial nerves II through XII grossly intact. ASSESSMENT: 1. Diverticulitis PLAN: -Continue clear liquid diet -Continue epidural for pain control -Continue Pedersen catheter -Continue IV fluids -Encourage patient to increase activity level -Incentive spirometer ordered -DVT prophylaxis subcu heparin and GI prophylaxis Pepcid Physician Lye Treater note has been reviewed by physician. Signing provider agrees with the documented findings, assessment, and plan of care. Objective - Vital Signs Vital signs: Vital Signs Temp 97.6 F 01/25/24 12:05 Pulse 87 01/25/24 12:05 Resp 20 01/25/24 12:05 BP 133/70 01/25/24 12:05 Pulse Ox 97 01/25/24 12:05 FiO2 Intake & Output 01/24/24 01/25/24 01/25/24 18:59 06:59 18:59 Intake Total 2200 1500 Output Total 100 300 400 Balance 2100 1200 -400 Weight 70.2 kg Intake: IV 2200 Intake, IV Titration 1500 Amount D5-0.45% NaCl with KCl 1500 20Meq/l 1,000 ml @ 125 mls/hr IV .Q8H [facility] Rx#: [id number] Output: Urine 100 300 400 Other: Voiding Method Indwelling Catheter - Labs CBC & Chem 7: 01/24/24 15:05 01/24/24 07:56
[2024-01-25] MEDS: FAMOTIDINE 20 MG/2 ML VIAL IV SCH (17:30)
--- NOTE | 2024-01-25 19:04 | P.CONS ---
History of Present Illness - Reason for Consult Consult date: 01/24/24 Medical management Requesting physician: Bib Billings - Chief Complaint Abdominal surgery - History of Present Illness This is a 83-year-old patient, follows with visiting physicians. October 2023 admitted to the hospital under Dr Billings with acute diverticulitis of the sigmoid colon with microperforation and intramural abscess. Treated with antibiotics discharged. Patient has undergone lower anterior resection takedown of splenic flexure and left hemicolectomy. Epidural in place. Very sleepy. Not really Alireza to give much of a history. Though arousable. Review of systems: Patient is postop very sleepy unable to obtain history Social history: Non-smoker. Alcohol rarely. Lives alone. Physical examination: VITAL SIGNS: 97.3, 91, 20, 134 x 78, 94% room air GENERAL: BMI 26.6, very lethargic/sleepy. EYES: Pupils equal. Conjunctiva liliane l. HEENT: External appearance of nose and ears normal, oral cavity grossly normal. NECK: JVD not raised; masses not palpable. HEART: First and second heart sounds are normal; no edema. LUNGS: Respiratory rate normal; creased breath sounds. ABDOMEN: Soft, nontender, liver spleen not palpable, no masses palpable. Wound VAC in place. With midline incision PSYCH: Sleepy, barely able to answer questions MUSCULOSKELETAL:No Clubbing/cyanosis;muscles-grossly intact NEUROLOGICAL: Cranial nerves grossly intact; no facial asymmetry, power and sensation grossly intact. LYMPHATICS: No lymph nodes palpable in the axilla and neck INVESTIGATIONS, reviewed in the clinical context: January 24, 2024: White count 15.3 hemoglobin 12.4 platelets 261 potassium 4.3 creatinine 0.6 Assessment and plan: -lower anterior resection takedown of splenic flexure and left hemicolectomy, with Dr Billings Wound VAC in place. Epidural in place -Chronic congestive heart failure, EF not known -Dementia -Essential hypertension -Hyperlipidemia -Primary osteoarthritis -Lumbar foraminal stenosis with myelopathy -Varicose veins Home medications have been ordered. Patient is on epidural. Clear liquid diet Thank you Dr Billings Past Medical History Past Medical History: Cancer, Heart Failure, Dementia, Hyperlipidemia, Hypertension, Musculoskeletal Disorder, Osteoarthritis (OA) Additional Past Medical History / Comment(s): Beginnings of dementia. D iverticulitis. Intracranial meningioma. Lumbar foraminal stenosis with myelopathy. Vitamin D Deficiency. Hx skin cancer. Varicose veins. 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 Past Anesthesia/Blood Transfusion Reactions: No Reported Reaction Smoking Status: Never smoker - Past Family History Father History Unknown: Yes Mother History Unknown: Yes Son(s) Family Medical History: Cancer Medications and Allergies Home Medications Medication Instructions Recorded Confirmed Type Atorvastatin [Lipitor] 40 mg PO HS 08/30/22 01/24/24 History Cholecalciferol [Vitamin D3 (25 25 mcg PO DAILY 08/30/22 01/24/24 History Mcg = 1000 Iu)] Cranberry(Unknown Dose) 1 tab PO DAILY 10/25/23 01/24/24 History Focus Factor 1 cap PO DAILY 10/25/23 01/24/24 History Lutein 20 mg PO DAILY 10/25/23 01/24/24 History [place]-3/Dha/Epa/Fish Oil [Fish Oil 1 cap PO DAILY 10/25/23 01/24/24 History 1,000 mg Softgel] Donepezil [Aricept] 5 mg PO HS 12/02/23 01/24/24 History Calcium (Unknown Dose) 1 tab PO DAILY 01/19/24 01/24/24 History Ginkgo Biloba (Unknown Dose) 1 tab PO DAILY 01/19/24 01/24/24 History Allergies Allergy/AdvReac Type Severity Reaction Status Date / Time pineapple Allergy Unknown Verified 01/24/24 07:30 sulfite Allergy Unknown Verified 01/24/24 07:30 Physical Exam Vitals: Vital Signs Temp Pulse Pulse Pulse Resp BP BP 01/24/24 19:46 97.3 F L 91 20 134/78 01/24/24 16:21 60 114/71 01/24/24 15:06 85 118/67 01/24/24 14:51 68 119/70 01/24/24 14:45 70 120/70 01/24/24 14:30 61 123/68 01/24/24 14:15 67 16 119/70 01/24/24 13:46 97.4 F L 65 16 133/73 01/24/24 13:09 66 16 142/66 01/24/24 12:45 71 16 140/73 01/24/24 12:30 74 17 150/72 01/24/24 12:15 79 16 168/77 01/24/24 12:00 75 16 169/79 01/24/24 11:45 82 16 165/82 01/24/24 11:30 82 16 166/76 01/24/24 11:15 77 16 143/72 01/24/24 11:05 98 F 74 16 144/65 01/24/24 08:57 73 18 107/55 01/24/24 08:35 80 18 105/57 01/24/24 07:22 97.9 F 95 18 133/62 Pulse Ox 01/24/24 19:46 94 L 01/24/24 16:21 91 L 01/24/24 15:06 92 L 01/24/24 14:51 95 01/24/24 14:45 94 L 01/24/24 14:30 92 L 01/24/24 14:15 92 L 01/24/24 13:46 99 01/24/24 13:09 100 01/24/24 12:45 100 01/24/24 12:30 100 01/24/24 12:15 100 01/24/24 12:00 100 01/24/24 11:45 100 01/24/24 11:30 100 01/24/24 11:15 100 01/24/24 11:05 100 01/24/24 08:57 100 01/24/24 08:35 99 01/24/24 07:22 97 Intake and Output 01/24/24 01/24/24 01/25/24 14:59 22:59 06:59 Intake Total 2200 Output Total 100 Balance 2100 Intake: IV 2200 Output: Urine 100 Other: Voiding Method Indwelling Catheter Weight 70.2 kg Results CBC & Chem 7: 01/24/24 15:05 01/24/24 07:56 Labs: Abnormal Lab Results - Last 24 Hours (Table) 01/24/24 01/24/24 01/24/24 Range/Units 07:56 07:56 15:05 WBC 15.2 H 15.3 H (3.8-10.6) k/uL Neutrophils # 13.0 H 14.2 H (1.3-7.7) k/uL Lymphocytes # 0.5 L (1.0-4.8) k/uL Glucose 140 H (74-99) mg/dL
--- NOTE | 2024-01-25 19:08 | P.PN ---
Progress Note - Text Progress Note Date: 01/25/24 - Chief Complaint Abdominal surgery - History of Present Illness This is a 83-year-old patient, follows with visiting physicians. October 2023 admitted to the hospital under Dr Billings with acute diverticulitis of the sigmoid colon with microperforation and intramural abscess. Treated with antibiotics discharged. Patient has undergone lower anterior resection takedown of splenic flexure and left hemicolectomy. Epidural in place. Very sleepy. Not really Alireza to give much of a history. Though arousable. January 24: Sitting up in a chair. Tired. Clear liquid diet. Wound VAC in place. No flatus. Active Medications Alvimopan (Alvimopan 12 Mg Capsule) 12 mg PO BID [facility] Stop: 01/31/24 21:01 Last Admin: 01/25/24 08:19 Dose: 12 mg Atorvastatin Calcium (Atorvastatin 40 Mg Tab) 40 mg PO HS [facility] Last Admin: 01/24/24 20:06 Dose: 40 mg Cholecalciferol (Cholecalciferol 25 Mcg (1000 Iu) Tablet) 25 mcg PO DAILY [facility] Last Admin: 01/25/24 08:19 Dose: 25 mcg Donepezil HCl (Donepezil 5 Mg Tab) 5 mg PO HS [facility] Last Admin: 01/24/24 20:06 Dose: 5 mg Famotidine (Famotidine 20 Mg/2 Ml Vial) 20 mg IV DAILY [facility] Last Admin: 01/25/24 17:30 Dose: 20 mg Heparin Sodium (Porcine) (Heparin Sodium,Porcine 5,000 Unit/Ml 1 Ml Vial) 5,000 unit SQ Q12HR [facility] Hydromorphone HCl (Hydromorphone 1 Mg/Ml 1 Ml Syringe) 1 mg IVP Q3HR PRN PRN Reason: Severe Pain (Scale 7 to 10) Lactated Ringer's (Lactated Ringers) 1,000 mls @ 20 mls/hr IV .Q24H [facility] Last Admin: 01/25/24 06:32 Dose: Not Given Ropivacaine 250 mg/Hydromorphone HCl 5 mg/ Sodium Chloride 250 mls @ 0 mls/hr EPIDURAL .Q0M PRN; Protocol PRN Reason: Pain Control Last Admin: 01/25/24 13:49 Dose: 6 mls/hr Potassium Chloride/Dextrose/Sod Cl (D5%-1/2ns-Kcl 20 Meq/L Iv Solution) 1,000 mls @ 125 mls/hr IV .Q8H [facility] Last Admin: 01/25/24 15:54 Dose: Not Given Lidocaine HCl (Lidocaine 1% (10mg/Ml) For Iv Start) 0.1 ml INTRADERMA PER PROTOCOL PRN PRN Reason: IV Start Metoclopramide HCl (Metoclopramide 5 Mg/Ml 2 Ml Vial) 10 mg IVP Q6HR PRN PRN Reason: Nausea and Vomiting Last Admin: 01/25/24 00:25 Dose: 10 mg Naloxone HCl (Naloxone 0.4 Mg/Ml 1 Ml Vial) 0.2 mg IV Q2M PRN PRN Reason: Opioid Reversal Ondansetron HCl (Ondansetron 4 Mg/2 Ml Vial) 4 mg IVP Q8HR PRN PRN Reason: Nausea And Vomiting Last Admin: 01/25/24 11:48 Dose: 4 mg Social history: Non-smoker. Alcohol rarely. Lives alone. Physical examination: VITAL SIGNS: 97.6, 87, 20, 133/70, 97% room air GENERAL: Up in a chair, awake tired. EYES: Pupils equal. Conjunctiva liliane l. HEENT: External appearance of nose and ears normal, oral cavity grossly normal. NECK: JVD not raised; masses not palpable. HEART: First and second heart sounds are normal; no edema. LUNGS: Respiratory rate normal; creased breath sounds. ABDOMEN: Soft, nontender, liver spleen not palpable, no masses palpable. Wound VAC in place. With midline incision PSYCH: Alert oriented x 3, able to answer questions comfortably MUSCULOSKELETAL:No Clubbing/cyanosis;muscles-grossly intact INVESTIGATIONS, reviewed in the clinical context: January 24, 2024: White count 15.3 hemoglobin 12.4 platelets 261 potassium 4.3 creatinine 0.6 Assessment and plan: -lower anterior resection takedown of splenic flexure and left hemicolectomy, with Dr Billings Wound VAC in place. Epidural in place Clear liquid diet -Chronic congestive heart failure, EF not known: Stable -Cognitive impairment. From late onset dementia Aricept -Essential hypertension -Hyperlipidemia Lipitor -Primary osteoarthritis -Lumbar foraminal stenosis with myelopathy -Varicose veins on epidural. Clear liquid diet Thank you Dr Billings Past Medical History Past Medical History: Cancer, Heart Failure, Dementia, Hyperlipidemia, Hypertension, Musculoskeletal Disorder, Osteoarthritis (OA) Additional Past Medical History / Comment(s): Beginnings of dementia. Diverticulitis. Intracranial meningioma. Lumbar foraminal stenosis with myelop athy. Vitamin D Deficiency. Hx skin cancer. Varicose veins. 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 Past Anesthesia/Blood Transfusion Reactions: No Reported Reaction Smoking Status: Never smoker
[2024-01-25] MEDS: HEPARIN SODIUM,PORCINE 5,000 UNIT/ML 1 ML VIAL SQ SCH (22:08)
--- NOTE | 2024-01-26 07:12 | P.PN ---
Progress Note - Text Progress Note Date: 01/26/24 Postoperative day # 2 status post low anterior resection ,epidural catheter placed for postoperative analgesia, patient doing well epidural site okay, patient currently on combination of epidural infusion solution of Ropivacaine 0.0625% and Dilaudid 20 g per mL the infusion rate at 6 ml per hour , patient had no motor deficit epidural site okay , vital signs stable ,VAS 1-2 /10 , Assessment and plan= post operative day # 2 patient doing well ,pain well controlled , there is no anesthesia related complications
[2024-01-26 10:42] LABS: Basophils # (A) 0.02 X 10*3/uL (0.00-0.10); Basophils % (A) 0.2 %; Eosinophils # (A) 0.03 X 10*3/uL (0.04-0.35); Eosinophils % (A) 0.2 %; HCT 33.5 % (37.2-46.3); HGB 11.2 g/dL (12.0-15.0); Lymphocytes # (A) 1.28 X 10*3/uL (0.90-5.00); Lymphocytes % (A) 10.3 %; MCH 31.4 pg (27.0-32.0); MCHC 33.4 g/dL (32.0-37.0); MCV 93.8 FL (80.0-97.0); Mean Platelet Volume 9.3 FL (9.5-12.2); Monocytes # (A) 0.73 X 10*3/uL (0.20-1.00); Monocytes % (A) 5.9 %; NRBC Per 100 WBC 0 X 10*3/uL (0.00-0.01); Neutrophils % (A) 82.8 %; Platelet Count 272 X 10*3/uL (140-440); RBC 3.57 X 10*6/uL (4.10-5.20); RDW 11.7 % (11.5-14.5); WBC 12.44 X 10*3/uL (4.50-10.00)
[2024-01-26 10:49] LABS: BUN/Creat Ratio <7.00 Ratio (12.00-20.00); Blood Urea Nitrogen <3.5 mg/dL (9.0-27.0); Calcium 8.3 mg/dL (8.7-10.3); Carbon Dioxide 24.4 mmol/L (21.6-31.8); Chloride 100 mmol/L (96-109); Glucose 139 mg/dL (70-110); Sodium 134 mmol/L (135-145)
[2024-01-26] MEDS ORDERED: HYDROmorphone 0.5 MG/0.5 ML SYRINGE IVP PRN (11:26)
[2024-01-26] MEDS: ACETAMINOPHEN IV (For NPO) 1,000 MG in EMPTY BAG 1 BAG IVPB SCH (12:59)
--- NOTE | 2024-01-26 16:06 | P.PN ---
Subjective Progress Note Date: 01/26/24 CHIEF COMPLAINT: Diverticulitis HISTORY OF PRESENT ILLNESS: Patient is postop day #2status post lower anterior resection, takedown splenic flexure and left hemicolectomy. Patient had having episodes of confusion. Thought possibly related to the epidural. Epidural was discontinued. Patient's pain remains controlled. Denies any nausea or vomiting. No flatus. Did have a low-grade temp of 100 last night. Currently afebrile. WBC 15 down to 12 PHYSICAL EXAM: VITAL SIGNS: Reviewed. GENERAL: Well-developed in no acute distress. ABDOMEN: Soft. Nondistended. Prevana wound vac intact NEUROLOGIC: Alert and oriented. Cranial nerves II through XII grossly intact. ASSESSMENT: 1. Diverticulitis PLAN: -Discontinue epidural -Discontinue Pedersen catheter -IV Tylenol added for pain. Dilaudid decreased to 0.5 mg IV every 3 hours as needed for breakthrough pain -Continue clear liquid diet -Continue IV fluids -Encourage patient to increase activity level -Incentive spirometer ordered -PT OT on consult -DVT prophylaxis subcu heparin and GI prophylaxis Pepcid Physician Government Professor note has been reviewed by physician. Signing provider agrees with the documented findings, assessment, and plan of care. Objective - Vital Signs Vital signs: Vital Signs Temp 98.5 F 01/26/24 13:39 Pulse 99 01/26/24 13:39 Resp 17 01/26/24 13:39 BP 125/72 01/26/24 13:39 Pulse Ox 95 01/26/24 13:39 FiO2 Intake & Output 01/25/24 01/26/24 01/26/24 18:59 06:59 18:59 Intake Total 600 Output Total 1000 1800 1600 Balance -1000 -1800 -1000 Intake: Oral 600 Output: Urine 1000 1800 1600 Other: Voiding Method Indwelling Catheter Indwelling Catheter - Labs CBC & Chem 7: 01/26/24 06:59 01/26/24 06:59 Labs: Abnormal Lab Results - Last 24 Hours (Table) 01/26/24 01/26/24 Range/Units 06:59 06:59 WBC 12.44 H (4.50-10.00) X 10*3/uL RBC 3.57 L (4.10-5.20) X 10*6/uL Hgb 11.2 L (12.0-15.0) g/dL Hct 33.5 L (37.2-46.3) % MPV 9.3 L (9.5-12.2) FL Immature Gran # 0.08 H (0.00-0.04) X 10*3/uL Neutrophils # 10.30 H (1.80-7.70) X 10*3/uL Eosinophils # 0.03 L (0.04-0.35) X 10*3/uL Sodium 134 L (135-145) mmol/L BUN <3.5 L (9.0-27.0) mg/dL Creatinine 0.5 L (0.6-1.5) mg/dL BUN/Creatinine Ratio <7.00 L (12.00-20.00) Ratio Glucose 139 H (70-110) mg/dL Calcium 8.3 L (8.7-10.3) mg/dL
--- NOTE | 2024-01-26 18:38 | P.PN ---
Progress Note - Text Progress Note Date: 01/26/24 - Chief Complaint Abdominal surgery - History of Present Illness This is a 83-year-old patient, follows with visiting physicians. October 2023 admitted to the hospital under Dr Billings with acute diverticulitis of the sigmoid colon with microperforation and intramural abscess. Treated with antibiotics discharged. Patient has undergone lower anterior resection takedown of splenic flexure and left hemicolectomy. Epidural in place. Very sleepy. Not really Alireza to give much of a history. Though arousable. January 24: Sitting up in a chair. Tired. Clear liquid diet. Wound VAC in place. No flatus. January 25: Resting in bed. No flatus. Clear liquid diet. More awake and talkative. Daughter at the bedside. No pain. No nausea vomiting. Getting epidural. Active Medications Alvimopan (Alvimopan 12 Mg Capsule) 12 mg PO BID [facility] Stop: 01/31/24 21:01 Last Admin: 01/26/24 08:31 Dose: 12 mg Atorvastatin Calcium (Atorvastatin 40 Mg Tab) 40 mg PO [facility] Last Admin: 01/25/24 22:08 Dose: Not Given Cholecalciferol (Cholecalciferol 25 Mcg (1000 Iu) Tablet) 25 mcg PO DAILY [facility] Last Admin: 01/26/24 08:31 Dose: 25 mcg Donepezil HCl (Donepezil 5 Mg Tab) 5 mg PO [facility] Last Admin: 01/25/24 22:08 Dose: Not Given Famotidine (Famotidine 20 Mg/2 Ml Vial) 20 mg IV DAILY [facility] Last Admin: 01/26/24 08:32 Dose: 20 mg Heparin Sodium (Porcine) (Heparin Sodium,Porcine 5,000 Unit/Ml 1 Ml Vial) 5,000 unit SQ Q12HR [facility] Last Admin: 01/26/24 08:32 Dose: 5,000 unit Hydromorphone HCl (Hydromorphone 0.5 Mg/0.5 Ml Syringe) 0.5 mg IVP Q3HR PRN PRN Reason: Pain Lactated Ringer's (Lactated Ringers) 1,000 mls @ 20 mls/hr IV .Q24H [facility] Last Admin: 01/26/24 06:39 Dose: Not Given Ropivacaine 250 mg/Hydromorphone HCl 5 mg/ Sodium Chloride 250 mls @ 0 mls/hr EPIDURAL .Q0M PRN; Protocol PRN Reason: Pain Control Last Admin: 01/25/24 13:49 Dose: 6 mls/hr Potassium Chloride/Dextrose/Sod Cl (D5%-1/2ns-Kcl 20 Meq/L Iv Solution) 1,000 mls @ 125 mls/hr IV .Q8H [facility] Last Admin: 01/26/24 14:47 Dose: Not Given Acetaminophen 1,000 mg/ IV (Solution) 100 mls @ 400 mls/hr IVPB Q6HR [facility] Stop: 01/27/24 06:01 Last Admin: 01/26/24 17:35 Dose: 400 mls/hr Lidocaine HCl (Lidocaine 1% (10mg/Ml) For Iv Start) 0.1 ml INTRADERMA PER PROTOCOL PRN PRN Reason: IV Start Metoclopramide HCl (Metoclopramide 5 Mg/Ml 2 Ml Vial) 10 mg IVP Q6HR PRN PRN Reason: Nausea and Vomiting Last Admin: 01/25/24 00:25 Dose: 10 mg Naloxone HCl (Naloxone 0.4 Mg/Ml 1 Ml Vial) 0.2 mg IV Q2M PRN PRN Reason: Opioid Reversal Ondansetron HCl (Ondansetron 4 Mg/2 Ml Vial) 4 mg IVP Q8HR PRN PRN Reason: Nausea And Vomiting Last Admin: 01/25/24 11:48 Dose: 4 mg Social history: Non-smoker. Alcohol rarely. Lives alone. Physical examination: VITAL SIGNS: 98.5, 99, 17, 0.25 x 72, 95% room air GENERAL: Reclining in bed, more awake EYES: Pupils equal. Conjunctiva liliane l. HEENT: External appearance of nose and ears normal, oral cavity grossly normal. NECK: JVD not raised; masses not palpable. HEART: First and second heart sounds are normal; no edema. LUNGS: Respiratory rate normal; creased breath sounds. ABDOMEN: Soft, nontender, liver spleen not palpable, no masses palpable. Wound VAC in place. With midline incision PSYCH: Alert oriented x 3, able to answer questions comfortably MUSCULOSKELETAL:No Clubbing/cyanosis;muscles-grossly intact INVESTIGATIONS, reviewed in the clinical context: January 25: White count 12.4 hemoglobin 11.2 platelets 272 potassium 5 creatinine 0.5 January 24, 2024:White count 15.3 hemoglobin 12.4 platelets 261 potassium 4.3 creatinine 0.6 Assessment and plan: -lower anterior resection takedown of splenic flexure and left hemicolectomy, with Dr Billings Wound VAC in place. Epidural in place Clear liquid diet-IV fluids -Chronic congestive heart failure, EF not known: Stable Follow clinically -Cognitive impairment. From late onset dementia Aricept -Essential hypertension -Hyperlipidemia Lipitor -Primary osteoarthritis Pain medication as needed -Lumbar foraminal stenosis with myelopathy -Varicose veins Remains on a clear liquid diet epidural. Discussed with the patient daughter at the bedside. Decrease IV fluids to 100 cc an hour. Thank you Dr Billings Past Medical History Past Medical History: Cancer, Heart Failure, Dementia, Hyperlipidemia, Hypertension, Musculoskeletal Disorder, Osteoarthritis (OA) Additional Past Medical History / Comment(s): Beginnings of dementia. Diverticulitis. Intracranial meningioma. Lumbar foraminal stenosis with myelopathy. Vitamin D Deficiency. Hx skin cancer. Varicose veins. 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 Past Anesthesia/Blood Transfusion Reactions: No Reported Reaction Smoking Status: Never smoker
[2024-01-27] MEDS ORDERED: ACETAMINOPHEN TAB 325 MG TAB PO PRN (13:18)
--- NOTE | 2024-01-27 13:19 | P.PN ---
Subjective Progress Note Date: 01/27/24 CHIEF COMPLAINT: Diverticulitis HISTORY OF PRESENT ILLNESS: Patient is postop day #3 status post lower anterior resection, takedown splenic flexure and left hemicolectomy. Patient had vomiting this morning. No complaints currently. Denies any abdominal pain. No flatus or bowel movement. Afebrile. PHYSICAL EXAM: VITAL SIGNS: Reviewed. GENERAL: Well-developed in no acute distress. ABDOMEN: Soft. Nondistended. Prevana wound vac intact NEUROLOGIC: awake and alert ASSESSMENT: 1. Diverticulitis PLAN: -Continue antiemetics -Oral Tylenol ordered as needed for pain -Continue clear liquid diet -Continue IV fluids -Encourage patient to increase activity level -Incentive spirometer ordered -Continue to work with PT/OT -Continue Entereg -DVT prophylaxis subcu heparin and GI prophylaxis Pepcid Physician Airline Customer Service Agent note has been reviewed by physician. Signing provider agrees with the documented findings, assessment, and plan of care. Objective - Vital Signs Vital signs: Vital Signs Temp 97.6 F 01/27/24 07:24 Pulse 85 01/27/24 07:24 Resp 16 01/27/24 07:24 BP 144/74 01/27/24 07:24 Pulse Ox 95 01/27/24 07:24 FiO2 Intake & Output 01/26/24 01/27/24 01/27/24 18:59 06:59 18:59 Intake Total 600 1440 Output Total 1600 Balance -1000 1440 Intake: Intake, IV Titration 1200 Amount D5-0.45% NaCl with KCl 1200 20Meq/l 1,000 ml @ 100 mls/hr IV .Q10H [facility] Rx#: [id number] Oral 600 240 Output: Urine 1600 Other: Voiding Method Indwelling Catheter Toilet # Voids 2 3 # Emeses 1 - Labs CBC & Chem 7: 01/26/24 06:59 01/26/24 06:59
--- NOTE | 2024-01-27 15:14 | P.PN ---
Progress Note - Text Progress Note Date: 01/27/24 - Chief Complaint Abdominal surgery - History of Present Illness This is a 83-year-old patient, follows with visiting physicians. October 2023 admitted to the hospital under Dr Billings with acute diverticulitis of the sigmoid colon with microperforation and intramural abscess. Treated with antibiotics discharged. Patient has undergone lower anterior resection takedown of splenic flexure and left hemicolectomy. Epidural in place. Very sleepy. Not really Alireza to give much of a history. Though arousable. January 24: Sitting up in a chair. Tired. Clear liquid diet. Wound VAC in place. No flatus. January 25: Resting in bed. No flatus. Clear liquid diet. More awake and talkative. Daughter at the bedside. No pain. No nausea vomiting. Getting epidural. January 26: Remains on clear liquid diet. No flatus. Prevena in place. Tired. Epidural discontinued. Active Medications Acetaminophen (Acetaminophen Tab 325 Mg Tab) 650 mg PO Q4HR PRN PRN Reason: Fever and/ or Pain Alvimopan (Alvimopan 12 Mg Capsule) 12 mg PO BID [facility] Stop: 01/31/24 21:01 Last Admin: 01/27/24 10:10 Dose: 12 mg Atorvastatin Calcium (Atorvastatin 40 Mg Tab) 40 mg PO HS [facility] Last Admin: 01/26/24 19:51 Dose: 40 mg Cholecalciferol (Cholecalciferol 25 Mcg (1000 Iu) Tablet) 25 mcg PO DAILY [facility] Last Admin: 01/27/24 10:10 Dose: 25 mcg Donepezil HCl (Donepezil 5 Mg Tab) 5 mg PO HS [facility] Last Admin: 01/26/24 19:51 Dose: 5 mg Famotidine (Famotidine 20 Mg/2 Ml Vial) 20 mg IV DAILY [facility] Last Admin: 01/27/24 10:10 Dose: 20 mg Heparin Sodium (Porcine) (Heparin Sodium,Porcine 5,000 Unit/Ml 1 Ml Vial) 5,000 unit SQ Q12HR [facility] Last Admin: 01/27/24 10:09 Dose: 5,000 unit Hydromorphone HCl (Hydromorphone 0.5 Mg/0.5 Ml Syringe) 0.5 mg IVP Q3HR PRN PRN Reason: Pain Lactated Ringer's (Lactated Ringers) 1,000 mls @ 20 mls/hr IV .Q24H [facility] Last Admin: 01/27/24 05:40 Dose: Not Given Ropivacaine 250 mg/Hydromorphone HCl 5 mg/ Sodium Chloride 250 mls @ 0 mls/hr EPIDURAL .Q0M PRN; Protocol PRN Reason: Pain Control Last Admin: 01/25/24 13:49 Dose: 6 mls/hr Potassium Chloride/Dextrose/Sod Cl (D5%-1/2ns-Kcl 20 Meq/L Iv Solution) 1,000 mls @ 100 mls/hr IV .Q10H [facility] Last Admin: 01/27/24 10:10 Dose: 100 mls/hr Lidocaine HCl (Lidocaine 1% (10mg/Ml) For Iv Start) 0.1 ml INTRADERMA PER PROTOCOL PRN PRN Reason: IV Start Metoclopramide HCl (Metoclopramide 5 Mg/Ml 2 Ml Vial) 10 mg IVP Q6HR PRN PRN Reason: Nausea and Vomiting Last Admin: 01/25/24 00:25 Dose: 10 mg Naloxone HCl (Naloxone 0.4 Mg/Ml 1 Ml Vial) 0.2 mg IV Q2M PRN PRN Reason: Opioid Reversal Ondansetron HCl (Ondansetron 4 Mg/2 Ml Vial) 4 mg IVP Q8HR PRN PRN Reason: Nausea And Vomiting Last Admin: 01/27/24 00:14 Dose: 4 mg Social history: Non-smoker. Alcohol rarely. Lives alone. Physical examination: VITAL SIGNS: 88.2, 85, 20, 144/82, 96% room air GENERAL: Reclining in bed, tired EYES: Pupils equal. Conjunctiva liliane l. HEENT: External appearance of nose and ears normal, oral cavity grossly normal. NECK: JVD not raised; masses not palpable. HEART: First and second heart sounds are normal; no edema. LUNGS: Respiratory rate normal; creased breath sounds. ABDOMEN: Soft, nontender, liver spleen not palpable, no masses palpable. Prevena-Wound VAC in place. With midline incision PSYCH: Alert oriented x 3, able to answer questions comfortably MUSCULOSKELETAL:No Clubbing/cyanosis;muscles-grossly intact INVESTIGATIONS, reviewed in the clinical context: January 25: White count 12.4 hemoglobin 11.2 platelets 272 potassium 5 creatinine 0.5 January 24, 2024:White count 15.3 hemoglobin 12.4 platelets 261 potassium 4.3 creatinine 0.6 Assessment and plan: -lower anterior resection takedown of splenic flexure and left hemicolectomy, with Dr Billings Wound VAC in place.-Prevena Epidural i continued Clear liquid diet-IV fluids -Chronic congestive heart failure, EF not known: Stable Follow clinically -Cognitive impairment. From late onset dementia Aricept -Essential hypertension -Hyperlipidemia Lipitor -Primary osteoarthritis Pain medication as needed -Lumbar foraminal stenosis with myelopathy -Varicose veins Epidural is off. Clear liquid diet. Prevena. Tired. Thank you Dr Billings Past Medical History Past Medical History: Cancer, Heart Failure, Dementia, Hyperlipidemia, Hypertension, Musculoskeletal Disorder, Osteoarthritis (OA) Additional Past Medical History / Comment(s): Beginnings of dementia. Diverticulitis. Intracranial meningioma. Lumbar foraminal stenosis with myelopathy. Vitamin D Deficiency. Hx skin cancer. Varicose veins. 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 Past Anesthesia/Blood Transfusion Reactions: No Reported Reaction Smoking Status: Never smoker
[2024-01-27 15:30] VITALS: BMI 26.5
[2024-01-28 10:22] LABS: Basophils # (A) 0.03 X 10*3/uL (0.00-0.10); Basophils % (A) 0.2 %; Eosinophils # (A) 0.04 X 10*3/uL (0.04-0.35); Eosinophils % (A) 0.2 %; HCT 33.1 % (37.2-46.3); Lymphocytes # (A) 1.26 X 10*3/uL (0.90-5.00); Lymphocytes % (A) 6.4 %; MCHC 33.2 g/dL (32.0-37.0); MCV 93.2 FL (80.0-97.0); Monocytes # (A) 1.03 X 10*3/uL (0.20-1.00); Monocytes % (A) 5.2 %; NRBC Per 100 WBC 0 X 10*3/uL (0.00-0.01); Neutrophils # (A) 17.23 X 10*3/uL (1.80-7.70); Neutrophils % (A) 87.3 %; Platelet Count 335 X 10*3/uL (140-440); RBC 3.55 X 10*6/uL (4.10-5.20); RDW 11.7 % (11.5-14.5); WBC 19.72 X 10*3/uL (4.50-10.00)
[2024-01-28 11:04] LABS: Blood Urea Nitrogen 5.9 mg/dL (9.0-27.0); Calcium 8.2 mg/dL (8.7-10.3); Carbon Dioxide 24.5 mmol/L (21.6-31.8); Chloride 92 mmol/L (96-109); Glucose 133 mg/dL (70-110); Potassium 4.5 mmol/L (3.5-5.5); Sodium 126 mmol/L (135-145)
[2024-01-28] MEDS: PIPERACILLIN-TAZOBACTAM 3.375 GM in SODIUM CHLORIDE 0.9% 100 ML IVPB SCH (15:17)
[2024-01-28] MEDS: SODIUM CHLORIDE 0.9% 1,000 ML IV SCH (15:18)
--- NOTE | 2024-01-28 15:40 | P.PN ---
Subjective Progress Note Date: 01/28/24 CHIEF COMPLAINT: Diverticulitis HISTORY OF PRESENT ILLNESS: Patient is postop day #4 status post lower anterior resection, takedown splenic flexure and left hemicolectomy. Patient has no complaints. No bowel activity. No nausea or vomiting. Tolerating clear liquids. White count is up to 19. Afebrile. Sodium 126 PHYSICAL EXAM: VITAL SIGNS: Reviewed. GENERAL: Well-developed in no acute distress. ABDOMEN: Soft. Nondistended. Prevana dressing was pulled down. Incision site clean dry and intact. There is some mild small amount of firmness on the left of the incision but nontender. No erythema. Mild ecchymosis at the distal aspect of the incision. NEUROLOGIC: awake and alert ASSESSMENT: 1. Diverticulitis 2. Leukocytosis 3. Hyponatremia PLAN: -Zosyn added for leukocytosis. check urinalysis and chest x-ray for also possible causes of leukocytosis -Hyponatremia will change fluids to normal saline. Discontinue the D5 half- normal saline. Hyponatremia management per medicine service -Repeat CBC and BMP in a.m. -Continue Entereg -Encourage patient to use incentive spirometer and increase activity level -DVT prophylaxis subcu heparin and GI prophylaxis Pepcid Physician [employer]onstrator note has been reviewed by physician. Signing provider agrees with the documented findings, assessment, and plan of care. Objective - Vital Signs Vital signs: Vital Signs Temp 98.4 F 01/28/24 12:53 Pulse 79 01/28/24 12:53 Resp 20 01/28/24 12:53 BP 153/76 01/28/24 12:53 Pulse Ox 97 01/28/24 12:53 FiO2 Intake & Output 01/27/24 01/28/24 01/28/24 18:59 06:59 18:59 Output Total 300 Balance -300 Weight 70.2 kg Output: Urine 300 Other: Voiding Method Toilet # Voids 1 2 2 # Emeses 1 1 - Labs CBC & Chem 7: 01/28/24 07:20 01/28/24 07:20 Labs: Abnormal Lab Results - Last 24 Hours (Table) 01/28/24 01/28/24 Range/Units 07:20 07:20 WBC 19.72 H (4.50-10.00) X 10*3/uL RBC 3.55 L (4.10-5.20) X 10*6/uL Hgb 11.0 L (12.0-15.0) g/dL Hct 33.1 L (37.2-46.3) % MPV 9.0 L (9.5-12.2) FL Immature Gran # 0.13 H (0.00-0.04) X 10*3/uL Neutrophils # 17.23 H (1.80-7.70) X 10*3/uL Monocytes # 1.03 H (0.20-1.00) X 10*3/uL Sodium 126 L (135-145) mmol/L Chloride 92 L (96-109) mmol/L BUN 5.9 L (9.0-27.0) mg/dL Creatinine 0.5 L (0.6-1.5) mg/dL BUN/Creatinine Ratio 11.80 L (12.00-20.00) Ratio Glucose 133 H (70-110) mg/dL Calcium 8.2 L (8.7-10.3) mg/dL
--- NOTE | 2024-01-28 16:11 | XR ---
EXAMINATION TYPE: XR chest 2V DATE OF EXAM: 01/28/2024 COMPARISON: 12/02/2023 HISTORY: Leukocytosis TECHNIQUE: Frontal and lateral views of the chest are obtained. FINDINGS: There is no focal air space opacity, pleural effusion, or pneumothorax seen. The cardiac silhouette size is within normal limits. The osseous structures are intact. IMPRESSION: No acute cardiopulmonary process.
--- NOTE | 2024-01-28 17:42 | P.PN ---
Progress Note - Text Progress Note Date: 01/28/24 - Chief Complaint Abdominal surgery - History of Present Illness This is a 83-year-old patient, follows with visiting physicians. October 2023 admitted to the hospital under Dr Billings with acute diverticulitis of the sigmoid colon with microperforation and intramural abscess. Treated with antibiotics discharged. Patient has undergone lower anterior resection takedown of splenic flexure and left hemicolectomy. Epidural in place. Very sleepy. Not really Alireza to give much of a history. Though arousable. January 24: Sitting up in a chair. Tired. Clear liquid diet. Wound VAC in place. No flatus. January 25: Resting in bed. No flatus. Clear liquid diet. More awake and talkative. Daughter at the bedside. No pain. No nausea vomiting. Getting epidural. January 26: Remains on clear liquid diet. No flatus. Prevena in place. Tired. Epidural discontinued. January 27: Saw the patient this morning. Daughter at the bedside. No flatus. Clear liquid diet. Zosyn added by surgery because of some leukocytosis. Nausea vomiting. Active Medications Acetaminophen (Acetaminophen Tab 325 Mg Tab) 650 mg PO Q4HR PRN PRN Reason: Fever and/ or Pain Alvimopan (Alvimopan 12 Mg Capsule) 12 mg PO BID [facility] Stop: 01/31/24 21:01 Last Admin: 01/28/24 11:17 Dose: 12 mg Atorvastatin Calcium (Atorvastatin 40 Mg Tab) 40 mg PO HS [facility] Last Admin: 01/27/24 20:47 Dose: 40 mg Cholecalciferol (Cholecalciferol 25 Mcg (1000 Iu) Tablet) 25 mcg PO DAILY [facility] Last Admin: 01/28/24 11:16 Dose: 25 mcg Donepezil HCl (Donepezil 5 Mg Tab) 5 mg PO [facility] Last Admin: 01/27/24 20:47 Dose: 5 mg Famotidine (Famotidine 20 Mg/2 Ml Vial) 20 mg IV DAILY [facility] Last Admin: 01/28/24 11:17 Dose: 20 mg Heparin Sodium (Porcine) (Heparin Sodium,Porcine 5,000 Unit/Ml 1 Ml Vial) 5,000 unit SQ Q12HR [facility] Last Admin: 01/28/24 11:17 Dose: 5,000 unit Hydromorphone HCl (Hydromorphone 0.5 Mg/0.5 Ml Syringe) 0.5 mg IVP Q3HR PRN PRN Reason: Pain Lactated Ringer's (Lactated Ringers) 1,000 mls @ 20 mls/hr IV .Q24H [facility] Last Admin: 01/28/24 06:02 Dose: Not Given Ropivacaine 250 mg/Hydromorphone HCl 5 mg/ Sodium Chloride 250 mls @ 0 mls/hr EPIDURAL .Q0M PRN; Protocol PRN Reason: Pain Control Last Admin: 01/25/24 13:49 Dose: 6 mls/hr Piperacillin Sod/Tazobactam (Sod 3.375 gm/ Sodium Chloride) 100 mls @ 25 mls/hr IVPB Q8HR [facility]; Protocol Last Admin: 01/28/24 15:17 Dose: 25 mls/hr Sodium Chloride (Saline 0.9%) 1,000 mls @ 100 mls/hr IV .Q10H [facility] Last Admin: 01/28/24 15:18 Dose: 100 mls/hr Lidocaine HCl (Lidocaine 1% (10mg/Ml) For Iv Start) 0.1 ml INTRADERMA PER PROTOCOL PRN PRN Reason: IV Start Metoclopramide HCl (Metoclopramide 5 Mg/Ml 2 Ml Vial) 10 mg IVP Q6HR PRN PRN Reason: Nausea and Vomiting Last Admin: 01/25/24 00:25 Dose: 10 mg Naloxone HCl (Naloxone 0.4 Mg/Ml 1 Ml Vial) 0.2 mg IV Q2M PRN PRN Reason: Opioid Reversal Ondansetron HCl (Ondansetron 4 Mg/2 Ml Vial) 4 mg IVP Q8HR PRN PRN Reason: Nausea And Vomiting Last Admin: 01/27/24 20:46 Dose: 4 mg Social history: Non-smoker. Alcohol rarely. Lives alone. Physical examination: VITAL SIGNS: 97.6, 79, 14, 153 x 76, 97% room air GENERAL: Reclining in bed, tired EYES: Pupils equal. Conjunctiva liliane l. HEENT: External appearance of nose and ears normal, oral cavity grossly normal. NECK: JVD not raised; masses not palpable. HEART: First and second heart sounds are normal; no edema. LUNGS: Respiratory rate normal; creased breath sounds. ABDOMEN: Soft, nontender, liver spleen not palpable, no masses palpable. Prevena-Wound VAC in place. With midline incision PSYCH: Alert oriented x 3, able to answer questions comfortably MUSCULOSKELETAL:No Clubbing/cyanosis;muscles-grossly intact INVESTIGATIONS, reviewed in the clinical context: January 27: White count 19.7 hemoglobin 11 sodium 126 potassium 4.5 creatinine 0.5 January 25: White count 12.4 hemoglobin 11.2 platelets 272 potassium 5 creatinine 0.5 January 24, 2024:White count 15.3 hemoglobin 12.4 platelets 261 potassium 4.3 creatinine 0.6 Assessment and plan: -lower anterior resection takedown of splenic flexure and left hemicolectomy, with Dr Billings Wound VAC in place.-Prevena Epidural i continued Clear liquid diet-IV fluids -Chronic congestive heart failure, EF not known: Stable Follow clinically -Hyponatremia from decreased solute intake: New diagnosis Check serum osmolality, urine osmolality, urine sodium-a.m. Follow closely -Leukocytosis. In the setting of postop started on IV Zosyn for surgery -Cognitive impairment. From late onset dementia Aricept -Essential hypertension -Hyperlipidemia Lipitor -Primary osteoarthritis Pain medication as needed -Lumbar foraminal stenosis with myelopathy -Varicose veins Check procalcitonin. IV Zosyn started. Discussed with patient daughter at the bedside. Thank you Dr Billings Past Medical History Past Medical History: Cancer, Heart Failure, Dementia, Hyperlipidemia, Hypertension, Musculoskeletal Disorder, Osteoarthritis (OA) Additional Past Medical History / Comment(s): Beginnings of dementia. Diverticulitis. Intracranial meningioma. Lumbar foraminal stenosis with myelopathy. Vitamin D Deficiency. Hx skin cancer. Varicose veins. 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 Past Anesthesia/Blood Transfusion Reactions: No Reported Reaction Smoking Status: Never smoker
[2024-01-28 18:16] LABS: Appearance,Urine Clear (Clear); Bacteria,Urine Rare /hpf; Bilirubin,Urine Negative (Negative); Blood,Urine Small (Negative); Color,Urine Colorless; Glucose,Urine (UA) Negative (Negative); Hyaline Casts,Urine 1 /lpf (0-2); Ketones,Urine Negative (Negative); Leukocyte Esterase,Urine Large (Negative); Nitrite,Urine Negative (Negative); Protein,Urine Negative (Negative); RBC,Urine 11 /hpf (0-5); Specific Gravity,Urine 1.007 (1.001-1.035); Urobilinogen,Urine <2.0 mg/dL (<2.0); WBC,Urine 159 /hpf (0-5)
[2024-01-29 09:27] LABS: Basophils # (A) 0.05 X 10*3/uL (0.00-0.10); Basophils % (A) 0.2 %; Eosinophils # (A) 0.14 X 10*3/uL (0.04-0.35); Eosinophils % (A) 0.7 %; HCT 34.8 % (37.2-46.3); HGB 11.6 g/dL (12.0-15.0); Lymphocytes # (A) 1.28 X 10*3/uL (0.90-5.00); Lymphocytes % (A) 6.4 %; MCH 30.9 pg (27.0-32.0); MCHC 33.3 g/dL (32.0-37.0); MCV 92.8 FL (80.0-97.0); Mean Platelet Volume 8.9 FL (9.5-12.2); Monocytes # (A) 1.22 X 10*3/uL (0.20-1.00); Monocytes % (A) 6.1 %; NRBC Per 100 WBC 0 X 10*3/uL (0.00-0.01); Neutrophils # (A) 17.32 X 10*3/uL (1.80-7.70); Platelet Count 310 X 10*3/uL (140-440); RBC 3.75 X 10*6/uL (4.10-5.20); RDW 11.8 % (11.5-14.5); WBC 20.14 X 10*3/uL (4.50-10.00)
[2024-01-29 12:24] LABS: BUN/Creat Ratio 7.67 Ratio (12.00-20.00); Blood Urea Nitrogen 4.6 mg/dL (9.0-27.0); Calcium 7.9 mg/dL (8.7-10.3); Carbon Dioxide 23.4 mmol/L (21.6-31.8); Chloride 94 mmol/L (96-109); Glucose 104 mg/dL (70-110); Potassium 4.3 mmol/L (3.5-5.5); Sodium 128 mmol/L (135-145)
--- NOTE | 2024-01-29 14:12 | XR ---
EXAMINATION TYPE: XR abdomen 2V DATE OF EXAM: 01/29/2024 CLINICAL DATA: 83-year-old female postoperative assessment, no bowel movement, PHH COMPARISON: None FINDINGS: Multiple air-fluid levels throughout. Air throughout both the colon and small bowel. A small bowel lo op in the left midabdomen dilated up to 6.1 cm. Transverse: Distended up to 6.7 cm. Relative possibly of rectal air. Suspect small bilateral pleural effusions. Mild free air noted below both hemidiaphra gms. A few midline skin eduar. End-stage degenerative change right hip. There is a 3.3 cm calcified fibroid in the pelvis. IMPRESSION: Correlate as to time since surgery. There are diffusely distended bowel loops. A small bowel loop greg sures up to 6.1 cm. Colon dilated up to 6.7 cm. There is also mild free intraperitoneal air and small pleural effusions. Consider postoperative ileus. Distal colonic obstruction is in the differential a s well.
--- NOTE | 2024-01-29 15:06 | P.PN ---
Subjective Progress Note Date: 01/29/24 Patient is status post colectomy for diverticulitis. She is sitting up in a chair. "Would like to go home." She is nontoxic in appearance. She reports eating textured foods for lunch. She denies abdominal pain. She reports bowel movements. She denies blood in stools. Abdomen: No peritonitis. Labs: WBC continued to elevate over 20,000, leukocytosis Plan: 1. Patient has leukocytosis which is worsening daily. She is on antibiotics. 2. Clinically, patient is nontoxic in appearance however mildly confused. Monitor mental status changes. 3. Consultation placed for antibiotic management with infectious disease consultation 4. May need additional imaging due to upward trend of leukocytosis Objective - Vital Signs Vital signs: Vital Signs Temp 98.7 F 01/29/24 13:32 Pulse 73 01/29/24 13:32 Resp 20 01/29/24 13:32 BP 126/72 01/29/24 13:32 Pulse Ox 95 01/29/24 13:32 FiO2 Intake & Output 01/28/24 01/29/24 01/29/24 18:59 06:59 18:59 Intake Total 1200 Output Total 300 Balance 900 Intake: Intake, IV Titration 1200 Amount Sodium Chloride 0.9% 1, 1200 000 ml @ 100 mls/hr IV . Q10H [facility] Rx#:[id number] Output: Urine 300 Other: Voiding Method Toilet Bedside Commode # Voids 2 3 1 # Emeses 1 - Labs CBC & Chem 7: 01/29/24 04:25 01/29/24 04:25 Labs: Abnormal Lab Results - Last 24 Hours (Table) 01/28/24 01/29/24 01/29/24 Range/Units 17:50 04:25 04:25 WBC 20.14 H (4.50-10.00) X 10*3/uL RBC 3.75 L (4.10-5.20) X 10*6/uL Hgb 11.6 L (12.0-15.0) g/dL Hct 34.8 L (37.2-46.3) % MPV 8.9 L (9.5-12.2) FL Immature Gran # 0.13 H (0.00-0.04) X 10*3/uL Neutrophils # 17.32 H (1.80-7.70) X 10*3/uL Monocytes # 1.22 H (0.20-1.00) X 10*3/uL Sodium 128 L (135-145) mmol/L Chloride 94 L (96-109) mmol/L BUN 4.6 L (9.0-27.0) mg/dL BUN/Creatinine Ratio 7.67 L (12.00-20.00) Ratio Calcium 7.9 L (8.7-10.3) mg/dL Urine Blood Small H (Negative) Ur Leukocyte Esterase Large H (Negative) Urine RBC 11 H (0-5) /hpf Urine WBC 159 H (0-5) /hpf Urine Bacteria Rare H (None) /hpf
--- NOTE | 2024-01-29 18:09 | P.PN ---
Progress Note - Text Progress Note Date: 01/29/24 - Chief Complaint Abdominal surgery - History of Present Illness This is a 83-year-old patient, follows with visiting physicians. October 2023 admitted to the hospital under Dr Billings with acute diverticulitis of the sigmoid colon with microperforation and intramural abscess. Treated with antibiotics discharged. Patient has undergone lower anterior resection takedown of splenic flexure and left hemicolectomy. Epidural in place. Very sleepy. Not really Alireza to give much of a history. Though arousable. January 24: Sitting up in a chair. Tired. Clear liquid diet. Wound VAC in place. No flatus. January 25: Resting in bed. No flatus. Clear liquid diet. More awake and talkative. Daughter at the bedside. No pain. No nausea vomiting. Getting epidural. January 26: Remains on clear liquid diet. No flatus. Prevena in place. Tired. Epidural discontinued. January 27: Saw the patient this morning. Daughter at the bedside. No flatus. Clear liquid diet. Zosyn added by surgery because of some leukocytosis. Nausea vomiting. January 28: In a recliner. Tired. No flatus. Clinically appears to be ileus. Abdominal x-ray shows distended bowel loops. Small bowel loops 6.1 cm. Colon dilated up to 6.[address] Bellamy is covering for Dr. Billings. IV Zosyn. Active Medications Acetaminophen (Acetaminophen Tab 325 Mg Tab) 650 mg PO Q4HR PRN PRN Reason: Fever and/ or Pain Alvimopan (Alvimopan 12 Mg Capsule) 12 mg PO BID [facility] Stop: 01/31/24 21:01 Last Admin: 01/29/24 09:01 Dose: 12 mg Atorvastatin Calcium (Atorvastatin 40 Mg Tab) 40 mg PO [facility] Last Admin: 01/28/24 23:22 Dose: 40 mg Cholecalciferol (Cholecalciferol 25 Mcg (1000 Iu) Tablet) 25 mcg PO DAILY [facility] Last Admin: 01/29/24 08:58 Dose: 25 mcg Donepezil HCl (Donepezil 5 Mg Tab) 5 mg PO [facility] Last Admin: 01/28/24 23:22 Dose: 5 mg Famotidine (Famotidine 20 Mg/2 Ml Vial) 20 mg IV DAILY [facility] Last Admin: 01/29/24 08:58 Dose: 20 mg Heparin Sodium (Porcine) (Heparin Sodium,Porcine 5,000 Unit/Ml 1 Ml Vial) 5,000 unit SQ Q12HR [facility] Last Admin: 01/29/24 08:58 Dose: 5,000 unit Hydromorphone HCl (Hydromorphone 0.5 Mg/0.5 Ml Syringe) 0.5 mg IVP Q3HR PRN PRN Reason: Pain Lactated Ringer's (Lactated Ringers) 1,000 mls @ 20 mls/hr IV .Q24H [facility] Last Admin: 01/29/24 06:51 Dose: Not Given Ropivacaine 250 mg/Hydromorphone HCl 5 mg/ Sodium Chloride 250 mls @ 0 mls/hr EPIDURAL .Q0M PRN; Protocol PRN Reason: Pain Control Last Admin: 01/25/24 13:49 Dose: 6 mls/hr Piperacillin Sod/Tazobactam (Sod 3.375 gm/ Sodium Chloride) 100 mls @ 25 mls/hr IVPB Q8HR [facility]; Protocol Last Admin: 01/29/24 08:58 Dose: 25 mls/hr Sodium Chloride (Saline 0.9%) 1,000 mls @ 100 mls/hr IV .Q10H [facility] Last Admin: 01/29/24 05:34 Dose: 100 mls/hr Lidocaine HCl (Lidocaine 1% (10mg/Ml) For Iv Start) 0.1 ml INTRADERMA PER PROTOCOL PRN PRN Reason: IV Start Metoclopramide HCl (Metoclopramide 5 Mg/Ml 2 Ml Vial) 10 mg IVP Q6HR PRN PRN Reason: Nausea and Vomiting Last Admin: 01/25/24 00:25 Dose: 10 mg Naloxone HCl (Naloxone 0.4 Mg/Ml 1 Ml Vial) 0.2 mg IV Q2M PRN PRN Reason: Opioid Reversal Ondansetron HCl (Ondansetron 4 Mg/2 Ml Vial) 4 mg IVP Q8HR PRN PRN Reason: Nausea And Vomiting Last Admin: 01/27/24 20:46 Dose: 4 mg Social history: Non-smoker. Alcohol rarely. Lives alone. Physical examination: VITAL SIGNS: 98.7, 73, 20, 126 Alireza 72, 95% room air GENERAL: Reclining in bed, tired EYES: Pupils equal. Conjunctiva liliane l. HEENT: External appearance of nose and ears normal, oral cavity grossly normal. NECK: JVD not raised; masses not palpable. HEART: First and second heart sounds are normal; no edema. LUNGS: Respiratory rate normal; creased breath sounds. ABDOMEN: Soft, nontender, liver spleen not palpable, no masses palpable. Prevena-Wound VAC in place. With midline incision. Distended. Hyperactive bowel sounds PSYCH: Alert oriented x 3, able to answer questions comfortably MUSCULOSKELETAL:No Clubbing/cyanosis;muscles-grossly intact INVESTIGATIONS, reviewed in the clinical context: January 28: White count 20.1 hemoglobin 11.6 sodium 128 potassium 4.3 Abdominal x-ray [January 28]: Distended bowels January 27: White count 19.7 hemoglobin 11 sodium 126 potassium 4.5 creatinine 0.5 January 25: White count 12.4 hemoglobin 11.2 platelets 272 potassium 5 creatinine 0.5 January 24, 2024:White count 15.3 hemoglobin 12.4 platelets 261 potassium 4.3 creatinine 0.6 Assessment and plan: -Postop ileus, currently no nausea vomiting: New diagnosis Follow-up with surgery -lower anterior resection takedown of splenic flexure and left hemicolectomy, with Dr Billings Wound VAC in place.-Prevena Epidural i continued Clear liquid diet-IV fluids -Chronic congestive heart failure, EF not known: Stable Follow clinically -Hyponatremia from decreased solute intake: New diagnosis Check serum osmolality, urine osmolality, urine sodium-a.m. Follow closely -Leukocytosis. In the setting of postop started on IV Zosyn for surgery -Cognitive impairment. From late onset dementia Aricept -Essential hypertension -Hyperlipidemia Lipitor -Primary osteoarthritis Pain medication as needed -Lumbar foraminal stenosis with myelopathy -Varicose veins Continue IV Zosyn. X-ray findings to be follow-up as per surgery. Whether patient needs NG tube or not. Thank you Dr Billings Past Medical History Past Medical History: Cancer, Heart Failure, Dementia, Hyperlipidemia, Hypertension, Musculoskeletal Disorder, Osteoarthritis (OA) Additional Past Medical History / Comment(s): Beginnings of dementia. Diverticulitis. Intracranial meningioma. Lumbar foraminal stenosis with myelopathy. Vitamin D Deficiency. Hx skin cancer. Varicose veins. 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 Past Anesthesia/Blood Transfusion Reactions: No Reported Reaction Smoking Status: Never smoker
--- NOTE | 2024-01-30 13:15 | P.PN ---
Subjective Progress Note Date: 01/30/24 patient is resting comfortably in her bed. She denies any significant abdominal pain. On exam vital signs appear stable. Abdomen soft. Incisions clean dry intact. Patient has had a prolonged leukocytosis. The patient will have her CBC drawn and tomorrow. If she still has evidence of a elevated WBC. She will undergo computed tomography scan of the abdomen tonight for possible source. Patient will be observed closely. Objective - Vital Signs Vital signs: Vital Signs Temp 98.6 F 01/30/24 13:09 Pulse 77 01/30/24 13:09 Resp 17 01/30/24 13:09 BP 121/67 01/30/24 13:09 Pulse Ox 95 01/30/24 13:09 FiO2 Intake & Output 01/29/24 01/30/24 01/30/24 18:59 06:59 18:59 Intake Total 1300 Output Total 300 Balance -300 1300 Intake: Intake, IV Titration 1300 Amount Piperacillin-Tazobactam 3 100 .375 gm In Sodium Chloride 0.9% 100 ml @ 25 mls/hr IVPB Q8HR [facility] Rx# :[id number] Sodium Chloride 0.9% 1, 1200 000 ml @ 100 mls/hr IV . Q10H [facility] Rx#:[id number] Output: Urine 300 Other: Voiding Method Bedside Commode Bedside Commode Toilet # Voids 1 1 # Bowel Movements 1 1 - Labs CBC & Chem 7: 01/29/24 04:25 01/29/24 04:25 Labs: Abnormal Lab Results - Last 24 Hours (Table) 01/29/24 Range/Units 16:51 Urine Osmolality 260 L (400-1100) mOsm/kg Microbiology - Last 24 Hours (Table) 01/28/24 17:50 Urine Culture - Preliminary Urine,Voided Gram Neg Bacilli
--- NOTE | 2024-01-30 17:14 | P.PN ---
Progress Note - Text Progress Note Date: 01/30/24 - Chief Complaint Abdominal surgery - History of Present Illness This is a 83-year-old patient, follows with visiting physicians. October 2023 admitted to the hospital under Dr Billings with acute diverticulitis of the sigmoid colon with microperforation and intramural abscess. Treated with antibiotics discharged. Patient has undergone lower anterior resection takedown of splenic flexure and left hemicolectomy. Epidural in place. Very sleepy. Not really Alireza to give much of a history. Though arousable. January 24: Sitting up in a chair. Tired. Clear liquid diet. Wound VAC in place. No flatus. January 25: Resting in bed. No flatus. Clear liquid diet. More awake and talkative. Daughter at the bedside. No pain. No nausea vomiting. Getting epidural. January 26: Remains on clear liquid diet. No flatus. Prevena in place. Tired. Epidural discontinued. January 27: Saw the patient this morning. Daughter at the bedside. No flatus. Clear liquid diet. Zosyn added by surgery because of some leukocytosis. Nausea vomiting. January 28: In a recliner. Tired. No flatus. Clinically appears to be ileus. Abdominal x-ray shows distended bowel loops. Small bowel loops 6.1 cm. Colon dilated up to 6.[address] Bellamy is covering for Dr. Billings. IV Zosyn. January 29: Patient was made n.p.o. by surgery. Patient had a somewhat liquidy moderate size BM yesterday. No nausea vomiting. Remains on IV Zosyn. Active Medications Acetaminophen (Acetaminophen Tab 325 Mg Tab) 650 mg PO Q4HR PRN PRN Reason: Fever and/ or Pain Alvimopan (Alvimopan 12 Mg Capsule) 12 mg PO BID [facility] Stop: 01/31/24 21:01 Last Admin: 01/29/24 09:01 Dose: 12 mg Atorvastatin Calcium (Atorvastatin 40 Mg Tab) 40 mg PO [facility] Last Admin: 01/28/24 23:22 Dose: 40 mg Cholecalciferol (Cholecalciferol 25 Mcg (1000 Iu) Tablet) 25 mcg PO DAILY [facility] Last Admin: 01/29/24 08:58 Dose: 25 mcg Donepezil HCl (Donepezil 5 Mg Tab) 5 mg PO [facility] Last Admin: 01/28/24 23:22 Dose: 5 mg Famotidine (Famotidine 20 Mg/2 Ml Vial) 20 mg IV DAILY [facility] Last Admin: 01/29/24 08:58 Dose: 20 mg Heparin Sodium (Porcine) (Heparin Sodium,Porcine 5,000 Unit/Ml 1 Ml Vial) 5,000 unit SQ Q12HR [facility] Last Admin: 01/29/24 08:58 Dose: 5,000 unit Hydromorphone HCl (Hydromorphone 0.5 Mg/0.5 Ml Syringe) 0.5 mg IVP Q3HR PRN PRN Reason: Pain Lactated Ringer's (Lactated Ringers) 1,000 mls @ 20 mls/hr IV .Q24H [facility] Last Admin: 01/29/24 06:51 Dose: Not Given Ropivacaine 250 mg/Hydromorphone HCl 5 mg/ Sodium Chloride 250 mls @ 0 mls/hr EPIDURAL .Q0M PRN; Protocol PRN Reason: Pain Control Last Admin: 01/25/24 13:49 Dose: 6 mls/hr Piperacillin Sod/Tazobactam (Sod 3.375 gm/ Sodium Chloride) 100 mls @ 25 mls/hr IVPB Q8HR [facility]; Protocol Last Admin: 01/29/24 08:58 Dose: 25 mls/hr Sodium Chloride (Saline 0.9%) 1,000 mls @ 100 mls/hr IV .Q10H [facility] Last Admin: 01/29/24 05:34 Dose: 100 mls/hr Lidocaine HCl (Lidocaine 1% (10mg/Ml) For Iv Start) 0.1 ml INTRADERMA PER PROTOCOL PRN PRN Reason: IV Start Metoclopramide HCl (Metoclopramide 5 Mg/Ml 2 Ml Vial) 10 mg IVP Q6HR PRN PRN Reason: Nausea and Vomiting Last Admin: 01/25/24 00:25 Dose: 10 mg Naloxone HCl (Naloxone 0.4 Mg/Ml 1 Ml Vial) 0.2 mg IV Q2M PRN PRN Reason: Opioid Reversal Ondansetron HCl (Ondansetron 4 Mg/2 Ml Vial) 4 mg IVP Q8HR PRN PRN Reason: Nausea And Vomiting Last Admin: 01/27/24 20:46 Dose: 4 mg Social history: Non-smoker. Alcohol rarely. Lives alone. Physical examination: VITAL SIGNS: 98.7, 73, 20, 126 Alireza 72, 95% room air GENERAL: Reclining in bed, tired EYES: Pupils equal. Conjunctiva liliane l. HEENT: External appearance of nose and ears normal, oral cavity grossly normal. NECK: JVD not raised; masses not palpable. HEART: First and second heart sounds are normal; no edema. LUNGS: Respiratory rate normal; creased breath sounds. ABDOMEN: Soft, nontender, liver spleen not palpable, no masses palpable. Prevena-Wound VAC in place. With midline incision. Distention. Hyperactive bowel sounds PSYCH: Alert oriented x 3, able to answer questions comfortably MUSCULOSKELETAL:No Clubbing/cyanosis;muscles-grossly intact INVESTIGATIONS, reviewed in the clinical context: January 28: White count 20.1 hemoglobin 11.6 sodium 128 potassium 4.3 Abdominal x-ray [January 28]: Distended bowels January 27: White count 19.7 hemoglobin 11 sodium 126 potassium 4.5 creatinine 0.5 January 25: White count 12.4 hemoglobin 11.2 platelets 272 potassium 5 creatinine 0.5 January 24, 2024:White count 15.3 hemoglobin 12.4 platelets 261 potassium 4.3 creatinine 0.6 Assessment and plan: -Postop ileus, currently no nausea vomiting: Improvement Had a moderate size loose BM yesterday evening Follow-up with surgery N.p.o. -lower anterior resection takedown of splenic flexure and left hemicolectomy, with Dr Billings Wound VAC in place.-Prevena Epidural is continued -Chronic congestive heart failure, EF not known: Stable Follow clinically -Hyponatremia from decreased solute intake:: Some worsening -Leukocytosis. In the setting of postop IV Zosyn -Cognitive impairment. From late onset dementia Aricept -Essential hypertension -Hyperlipidemia Lipitor -Primary osteoarthritis Pain medication as needed -Lumbar foraminal stenosis with myelopathy -Varicose veins Had a moderate-sized loose BM last night. IV Zosyn. Made n.p.o. by surgery. Past Medical History Past Medical History: Cancer, Heart Failure, Dementia, Hyperlipidemia, Hypertension, Musculoskeletal Disorder, Osteoarthritis (OA) Additional Past Medical History / Comment(s): Beginnings of dementia. Diverticulitis. Intracranial meningioma. Lumbar foraminal stenosis with myelopathy. Vitamin D Deficiency. Hx skin cancer. Varicose veins. 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 Past Anesthesia/Blood Transfusion Reactions: No Reported Reaction Smoking Status: Never smoker
[2024-01-30] MEDS: LACTATED RINGERS 1,000 ML IV SCH (17:50)
[2024-01-30] MEDS: NYSTATIN 100,000 UNIT/ML SUSP 500,000 UNIT/5 ML CUP PO SCH (17:50)
--- NOTE | 2024-01-31 07:52 | P.CONS ---
History of Present Illness - Reason for Consult Consult date: 01/30/24 - History of Present Illness Patient is a 83-year-old female with a past medical history significant for hypertension hyperlipidemia dementia heart failure history of diverticulitis admitted to the hospital about a week ago for elective low anterior resection for recurrent episodes of diverticulitis patient on p resentation to the hospital was afebrile the patient did have a low-grade fever 100 F 2 days postsurgery but no fever have been recorded subsequently patient not tachycardic hypotensive or hypoxic patient did have a white count of 15.2 and the patient white count is trending up to 20,000 today it is prompting this infectious disease consultation patient did have a normal creatinine sodium is slightly low systolic lites normal liver enzymes are normal on admission UA has been obtained last night with tissues large leukocyte esterase 159 WBC with cultures currently pending no blood cultures done this admission patient did have chest x-ray no acute cardiopulmonary disease process abdominal x-ray diffusely distended bowel loops distal colonic obstruction is in the differential patient currently breathing comfortably on room air denies any headache no chest pain shortness of breath or cough denies any nausea vomiting abdominal pain is currently controlled denies having any diarrhea Past Medical History Past Medical History: Cancer, Heart Failure, Dementia, Hyperlipidemia, Hypertension, Musculoskeletal Disorder, Osteoarthritis (OA) Additional Past Medical History / Comment(s): Beginnings of dementia. Diverticulitis. Intracranial meningioma. Lumbar foraminal stenosis with myelopathy. Vitamin D Deficiency. Hx skin cancer. Varicose veins. 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 Past Anesthesia/Blood Transfusion Reactions: No Reported Reaction Smoking Status: Never smoker - Past Family History Father History Unknown: Yes Mother History Unknown: Yes Son(s) Family Medical History: Cancer Medications and Allergies Home Medications Medication Instructions Recorded Confirmed Type Atorvastatin [Lipitor] 40 mg PO HS 08/30/22 01/24/24 History Cholecalciferol [Vitamin D3 (25 25 mcg PO DAILY 08/30/22 01/24/24 History Mcg = 1000 Iu)] Cranberry(Unknown Dose) 1 tab PO DAILY 10/25/23 01/24/24 History Focus Factor 1 cap PO DAILY 10/25/23 01/24/24 History Lutein 20 mg PO DAILY 10/25/23 01/24/24 History [place]-3/Dha/Epa/Fish Oil [Fish Oil 1 cap PO DAILY 10/25/23 01/24/24 History 1,000 mg Softgel] Donepezil [Aricept] 5 mg PO HS 12/02/23 01/24/24 History Calcium (Unknown Dose) 1 tab PO DAILY 01/19/24 01/24/24 History Ginkgo Biloba (Unknown Dose) 1 tab PO DAILY 01/19/24 01/24/24 History Allergies Allergy/AdvReac Type Severity Reaction Status Date / Time pineapple Allergy Unknown Verified 01/24/24 07:30 sulfite Allergy Unknown Verified 01/24/24 07:30 Physical Exam Vitals: Vital Signs Temp Pulse Resp BP Pulse Ox 01/30/24 07:08 99.1 F 91 17 117/65 92 L 01/30/24 02:00 98.1 F 80 16 102/62 91 L 01/29/24 20:00 98.5 F 84 16 119/67 94 L 01/29/24 13:32 98.7 F 73 20 126/72 95 Intake and Output 01/29/24 01/30/24 01/30/24 22:59 06:59 14:59 Intake Total 1300 Output Total 300 Balance -300 1300 Intake: Intake, IV Titration 1300 Amount Piperacillin-Tazobactam 3 100 .375 gm In Sodium Chloride 0.9% 100 ml @ 25 mls/hr IVPB Q8HR [facility] Rx# :[id number] Sodium Chloride 0.9% 1, 1200 000 ml @ 100 mls/hr IV . Q10H [facility] Rx#:[id number] Output: Urine 300 Other: Voiding Method Bedside Commode Toilet # Voids 1 # Bowel Movements 1 1 Results CBC & Chem 7: 01/29/24 04:25 01/29/24 04:25 Labs: Abnormal Lab Results - Last 24 Hours (Table) 01/29/24 Range/Units 16:51 Urine Osmolality 260 L (400-1100) mOsm/kg Microbiology - Last 24 Hours (Table) 01/28/24 17:50 Urine Culture - Preliminary Urine,Voided Gram Neg Bacilli Assessment and Plan Plan: 1patient with a leukocytosis and this patient electively admitted to hospital below anterior resection operative report is currently pending however subsequent surgical note did not mention any perforation or abscess patient did have mild thrush and also have a positive UA concerning for gram-negative urinary tract infection likely etiology for this elevated white count. 2we will add nystatin swish and swallow and Zosyn should provide adequate coverage for the likely gram-negative urinary tract infection while waiting for the culture finalize We will follow on clinical condition and cultures to further adjust medication if needed Thank you for this consultation we will follow the patient along with you Dictation was produced using [employer] dictation software. please excuse any grammatical, word or spelling errors. Time with Patient: Greater than 30
[2024-01-31 09:18] LABS: Basophils % (A) 0 %; Eosinophils # (A) 0.2 k/uL (0-0.7); Eosinophils % (A) 1 %; HCT 34.7 % (34.0-46.0); HGB 11.3 gm/dL (11.4-16.0); Lymphocytes # (A) 1.2 k/uL (1.0-4.8); Lymphocytes % (A) 8 %; MCH 31.2 pg (25.0-35.0); MCHC 32.5 g/dL (31.0-37.0); MCV 96.1 fL (80.0-100.0); Mean Platelet Volume 7.9; Monocytes # (A) 0.8 k/uL (0-1.0); Monocytes % (A) 5 %; Neutrophils # (A) 12.7 k/uL (1.3-7.7); Neutrophils % (A) 84 %; Platelet Count 346 k/uL (150-450); RBC 3.61 m/uL (3.80-5.40); RDW 12.9 % (11.5-15.5)
[2024-01-31] MEDS: SODIUM CHLORIDE 0.9% 1,000 ML IV SCH (11:34)
[2024-01-31] MEDS: ZINC OXIDE PASTE (Z-GUARD) 1 APPLIC TOPICAL PRN (11:47)
--- NOTE | 2024-01-31 12:55 | P.PN ---
Subjective Progress Note Date: 01/31/24 Principal diagnosis: Reason for follow-up is leukocytosis/UTI Patient is a 83-year-old female with a past medical history significant for hypertension hyperlipidemia dementia heart failure history of diverticulitis admitted to the hospital for elective low anterior resection for recurrent episodes of diverticulitis, ID consulted because of elevated white count. On today's evaluation that is 01/31/2024,the patient denies any fever or any chills, patient is breathing comfortably on room air, the patient denies chest pain shortness of breath and no significant cough, patient denies abdominal pain, no nausea vomiting or diarrhea, feeling better. The patient white count down to 15.0 urine is growing gram-negative bacilli Objective - Vital Signs Vital signs: Vital Signs Temp 98.3 F 01/31/24 12:30 Pulse 84 01/31/24 12:30 Resp 16 01/31/24 12:30 BP 123/70 01/31/24 12:30 Pulse Ox 96 01/31/24 12:30 FiO2 Intake & Output 01/30/24 01/31/24 01/31/24 18:59 06:59 18:59 Other: Voiding Method Toilet Toilet Toilet # Voids 1 3 1 # Bowel Movements 1 2 - Exam GENERAL DESCRIPTION: An elderly female up in the chair in no distress RESPIRATORY SYSTEM: Unlabored breathing , decreased breath sounds at bases HEART: S1 S2 regular rate and rhythm , ABDOMEN: Soft , no tenderness EXTREMITIES: No edema feet - Labs CBC & Chem 7: 01/31/24 08:59 01/29/24 04:25 Labs: Abnormal Lab Results - Last 24 Hours (Table) 01/31/24 Range/Units 08:59 WBC 15.0 H (3.8-10.6) k/uL RBC 3.61 L (3.80-5.40) m/uL Hgb 11.3 L (11.4-16.0) gm/dL Neutrophils # 12.7 H (1.3-7.7) k/uL Microbiology - Last 24 Hours (Table) 01/28/24 17:50 Urine Culture - Final Urine,Voided Pseudomonas aeruginosa Gram Neg Bacilli Assessment and Plan (1) Leukocytosis Current Visit: Yes Status: Acute Code(s): D72.829 - ELEVATED WHITE BLOOD CELL COUNT, UNSPECIFIED SNOMED Code(s): 380569304 (2) UTI (urinary tract infection) Current Visit: Yes Status: Acute Code(s): N39.0 - URINARY TRACT INFECTION, SITE NOT SPECIFIED SNOMED Code(s): 20525729 Plan: 1patient with a leukocytosis and this patient electively admitted to hospital below anterior resection operative report is currently pending however subsequent surgical note did not mention any perforation or abscess patient did have mild thrush and also have a positive UA concerning for gram-negative urinary tract infection likely etiology for this elevated white count. 2patient white count is trending down urine is growing gram-negative with ID sensitivities pending continue with Zosyn and nystatin swish and swallow while waiting for the workup to be completed Daughter at the bedside questions answered Dictation was produced using [employer] dictation software. please excuse any grammatical, word or spelling errors. Time with Patient: Less than 30
--- NOTE | 2024-01-31 13:51 | P.PN ---
Subjective Progress Note Date: 01/31/24 CHIEF COMPLAINT: Diverticulitis HISTORY OF PRESENT ILLNESS: Patient is postop day #7 status post lower anterior resection, takedown splenic flexure and left hemicolectomy. Patient has no complaints. Patient had a bowel movement yesterday and today. Denies any nausea or vomiting. Denies any abdominal pain. Afebrile. WBC is down from 20- 15. Hgb 11.3 patient with UTI and oral thrush. Medication adjusted per infectious disease. PHYSICAL EXAM: VITAL SIGNS: Reviewed. GENERAL: Well-developed in no acute distress. ABDOMEN: Soft. Nondistended. Incision dressing clean dry and intact. Mild discomfort with palpation at incision site. Incision is soft. NEUROLOGIC: awake and alert ASSESSMENT: 1. Diverticulitis 2. Leukocytosis likely due to UTI and oral thrush 3. Hyponatremia PLAN: -Advance diet to full liquids -Antibiotics per ID service -Hyponatremia management per medicine service -Repeat CBC and BMP in a.m. -Encourage patient to use incentive spirometer and increase activity level -DVT prophylaxis subcu heparin and GI prophylaxis Pepcid Physician Rapid Outsole Stitcher note has been reviewed by physician. Signing provider agrees with the documented findings, assessment, and plan of care. Objective - Vital Signs Vital signs: Vital Signs Temp 98.3 F 01/31/24 12:30 Pulse 84 01/31/24 12:30 Resp 16 01/31/24 12:30 BP 123/70 01/31/24 12:30 Pulse Ox 96 01/31/24 12:30 FiO2 Intake & Output 01/30/24 01/31/24 01/31/24 18:59 06:59 18:59 Other: Voiding Method Toilet Toilet Toilet # Voids 1 3 1 # Bowel Movements 1 2 - Labs CBC & Chem 7: 01/31/24 08:59 01/29/24 04:25 Labs: Abnormal Lab Results - Last 24 Hours (Table) 01/31/24 Range/Units 08:59 WBC 15.0 H (3.8-10.6) k/uL RBC 3.61 L (3.80-5.40) m/uL Hgb 11.3 L (11.4-16.0) gm/dL Neutrophils # 12.7 H (1.3-7.7) k/uL Microbiology - Last 24 Hours (Table) 01/28/24 17:50 Urine Culture - Final Urine,Voided Pseudomonas aeruginosa Gram Neg Bacilli
--- NOTE | 2024-01-31 17:37 | P.PN ---
Progress Note - Text Progress Note Date: 01/31/24 - Chief Complaint Abdominal surgery - History of Present Illness This is a 83-year-old patient, follows with visiting physicians. October 2023 admitted to the hospital under Dr Billings with acute diverticulitis of the sigmoid colon with microperforation and intramural abscess. Treated with antibiotics discharged. Patient has undergone lower anterior resection takedown of splenic flexure and left hemicolectomy. Epidural in place. Very sleepy. Not really Alireza to give much of a history. Though arousable. January 24: Sitting up in a chair. Tired. Clear liquid diet. Wound VAC in place. No flatus. January 25: Resting in bed. No flatus. Clear liquid diet. More awake and talkative. Daughter at the bedside. No pain. No nausea vomiting. Getting epidural. January 26: Remains on clear liquid diet. No flatus. Prevena in place. Tired. Epidural discontinued. January 27: Saw the patient this morning. Daughter at the bedside. No flatus. Clear liquid diet. Zosyn added by surgery because of some leukocytosis. Nausea vomiting. January 28: In a recliner. Tired. No flatus. Clinically appears to be ileus. Abdominal x-ray shows distended bowel loops. Small bowel loops 6.1 cm. Colon dilated up to 6.[address] Bellamy is covering for Dr. Billings. IV Zosyn. January 29: Patient was made n.p.o. by surgery. Patient had a somewhat liquidy moderate size BM yesterday. No nausea vomiting. Remains on IV Zosyn. January 30: Patient advanced to full liquid diet. Had a bowel movement today. Daughter at the bedside. Hyponatremia drip because of decreased oral intake. Active Medications Acetaminophen (Acetaminophen Tab 325 Mg Tab) 650 mg PO Q4HR PRN PRN Reason: Fever and/ or Pain Atorvastatin Calcium (Atorvastatin 40 Mg Tab) 40 mg PO HS [facility] Last Admin: 01/30/24 20:21 Dose: 40 mg Cholecalciferol (Cholecalciferol 25 Mcg (1000 Iu) Tablet) 25 mcg PO DAILY [facility] Last Admin: 01/31/24 08:49 Dose: 25 mcg Donepezil HCl (Donepezil 5 Mg Tab) 5 mg PO HS [facility] Last Admin: 01/30/24 20:21 Dose: 5 mg Famotidine (Famotidine 20 Mg/2 Ml Vial) 20 mg IV DAILY [facility] Last Admin: 01/31/24 08:49 Dose: 20 mg Heparin Sodium (Porcine) (Heparin Sodium,Porcine 5,000 Unit/Ml 1 Ml Vial) 5,000 unit SQ Q12HR [facility] Last Admin: 01/31/24 08:49 Dose: 5,000 unit Hydromorphone HCl (Hydromorphone 0.5 Mg/0.5 Ml Syringe) 0.5 mg IVP Q3HR PRN PRN Reason: Pain Ropivacaine 250 mg/Hydromorphone HCl 5 mg/ Sodium Chloride 250 mls @ 0 mls/hr EPIDURAL .Q0M PRN; Protocol PRN Reason: Pain Control Last Admin: 01/25/24 13:49 Dose: 6 mls/hr Piperacillin Sod/Tazobactam (Sod 3.375 gm/ Sodium Chloride) 100 mls @ 25 mls/hr IVPB Q8HR [facility]; Protocol Last Admin: 01/31/24 15:58 Dose: 25 mls/hr Sodium Chloride (Saline 0.9%) 1,000 mls @ 100 mls/hr IV .Q10H [facility] Last Admin: 01/31/24 11:34 Dose: 100 mls/hr Lidocaine HCl (Lidocaine 1% (10mg/Ml) For Iv Start) 0.1 ml INTRADERMA PER PROTOCOL PRN PRN Reason: IV Start Metoclopramide HCl (Metoclopramide 5 Mg/Ml 2 Ml Vial) 10 mg IVP Q6HR PRN PRN Reason: Nausea and Vomiting Last Admin: 01/25/24 00:25 Dose: 10 mg Naloxone HCl (Naloxone 0.4 Mg/Ml 1 Ml Vial) 0.2 mg IV Q2M PRN PRN Reason: Opioid Reversal Nystatin (Nystatin 100,000 Unit/Ml Susp 500,000 Unit/5 Ml Cup) 500,000 unit PO QID [facility]; Protocol Last Admin: 01/31/24 17:15 Dose: 500,000 unit Ondansetron HCl (Ondansetron 4 Mg/2 Ml Vial) 4 mg IVP Q8HR PRN PRN Reason: Nausea And Vomiting Last Admin: 01/27/24 20:46 Dose: 4 mg Petrolatum (Zinc Oxide Paste (Z-Guard) 1 Applic) 1 applic TOPICAL Q2HR PRN PRN Reason: Wound Healing Last Admin: 01/31/24 11:47 Dose: 1 applic Social history: Non-smoker. Alcohol rarely. Lives alone. Physical examination: VITAL SIGNS: 98.3, 84, 16, 123/70, 96% room air GENERAL: Reclining in chair EYES: Pupils equal. Conjunctiva liliane l. HEENT: External appearance of nose and ears normal, oral cavity grossly normal. NECK: JVD not raised; masses not palpable. HEART: First and second heart sounds are normal; no edema. LUNGS: Respiratory rate normal; creased breath sounds. ABDOMEN: Soft, nontender, liver spleen not palpable, no masses palpable. Prevena-Wound VAC in place. With midline incision. PSYCH: Alert oriented x 3, able to answer questions comfortably MUSCULOSKELETAL:No Clubbing/cyanosis;muscles-grossly intact INVESTIGATIONS, reviewed in the clinical context: January 30: White count 15 hemoglobin 11.3 platelets 346 January 28: White count 20.1 hemoglobin 11.6 sodium 128 potassium 4.3 Abdominal x-ray [January 28]: Distended bowels January 27: White count 19.7 hemoglobin 11 sodium 126 potassium 4.5 creatinine 0.5 January 25: White count 12.4 hemoglobin 11.2 platelets 272 potassium 5 creatinine 0.5 January 24, 2024:White count 15.3 hemoglobin 12.4 platelets 261 potassium 4.3 creatinine 0.6 Assessment and plan: -Postop ileus, currently no nausea vomiting: Improvement Doing bowel movements Follow-up with surgery -lower anterior resection takedown of splenic flexure and left hemicolectomy, with Dr Billings Wound VAC in place.-Prevena Epidural stopped Advance to full liquid diet today -Chronic congestive heart failure, EF not known: Stable Follow clinically -Hyponatremia from decreased solute intake:: Patient advanced to full liquids -Leukocytosis. In the setting of postop IV Zosyn -Cognitive impairment. From late onset dementia Aricept -Essential hypertension -Hyperlipidemia Lipitor -Primary osteoarthritis Pain medication as needed -Lumbar foraminal stenosis with myelopathy -Varicose veins We Zosyn. Advance to full liquids. Past Medical History Past Medical History: Cancer, Heart Failure, Dementia, Hyperlipidemia, Hypertension, Musculoskeletal Disorder, Osteoarthritis (OA) Additional Past Medical History / Comment(s): Beginnings of dementia. Diverticulitis. Intracranial meningioma. Lumbar foraminal stenosis with myelopathy. Vitamin D Deficiency. Hx skin cancer. Varicose veins. 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 Past Anesthesia/Blood Transfusion Reactions: No Reported Reaction Smoking Status: Never smoker
[2024-02-01 08:46] VITALS: BP 155/66; PULSE 91; RESP 18; TEMP 98.6
[2024-02-01 11:25] LABS: Basophils # (A) 0.04 X 10*3/uL (0.00-0.10); Basophils % (A) 0.3 %; Eosinophils % (A) 1.9 %; HCT 34.1 % (37.2-46.3); HGB 11.3 g/dL (12.0-15.0); Lymphocytes # (A) 2.01 X 10*3/uL (0.90-5.00); Lymphocytes % (A) 12.6 %; MCH 31.7 pg (27.0-32.0); MCHC 33.1 g/dL (32.0-37.0); MCV 95.8 FL (80.0-97.0); Mean Platelet Volume 8.8 FL (9.5-12.2); Monocytes # (A) 0.95 X 10*3/uL (0.20-1.00); NRBC Per 100 WBC 0 X 10*3/uL (0.00-0.01); Neutrophils # (A) 12.38 X 10*3/uL (1.80-7.70); Neutrophils % (A) 77.4 %; Platelet Count 360 X 10*3/uL (140-440); RBC 3.56 X 10*6/uL (4.10-5.20); RDW 12.5 % (11.5-14.5); WBC 15.96 X 10*3/uL (4.50-10.00)
[2024-02-01 11:26] LABS: BUN/Creat Ratio <5.83 Ratio (12.00-20.00); Blood Urea Nitrogen <3.5 mg/dL (9.0-27.0); Calcium 7.8 mg/dL (8.7-10.3); Carbon Dioxide 24.1 mmol/L (21.6-31.8); Chloride 102 mmol/L (96-109); Glucose 85 mg/dL (70-110); Sodium 137 mmol/L (135-145)
--- NOTE | 2024-02-01 13:44 | P.DS ---
Providers Date of admission: 01/24/24 06:44 Expected date of discharge: 02/01/24 Attending physician: Bib Billings Consults: 01/24/24 11:00 Consult Physician Routine Consulting Provider: Marty Olivas Consult Reason/Comments: medical Do you want consulting provider notified?: Yes 01/29/24 15:06 Consult Physician Routine Consulting Provider: Angeli Thomas Consult Reason/Comments: Leukocytosis Do you want consulting provider notified?: Yes Primary care physician: Stated None Hospital Course: Discharge diagnosis 1. Diverticulitis 2. Leukocytosis likely due to UTI and oral thrush 3. Hyponatremia resolved 4. Hypokalemia. Patient receiving potassium supplement prior to discharge. Hospital course This is a 84-year-old female with known history of diverticulitis. She is status post lower anterior resection. Patient tolerated surgery well. Her pain is controlled. She is having bowel movements. She is tolerating diet. She is afebrile. She has been up and ambulating. She will be discharged with Cipro for her UTI with Pseudomonas and nystatin swish and swallow for oral thrush. Case discussed with both infectious disease and medicine service. Per Dr. Olivas patient can be off of the Aricept while taking the Cipro. Cipro and Aricept have interaction of prolonged QT interval. Patient is stable for discharge. Please refer to chart for any further details. Physician Side Trimmer note has been reviewed by physician. Signing provider agrees with the documented findings, assessment, and plan of care. Patient Condition at Discharge: Stable Plan - Discharge Summary Discharge Rx Participant: No New Discharge Prescriptions: New Nystatin 100,000 Unit/ml Susp [Mycostatin Oral Susp] 500,000 unit PO QID 7 Days #140 ml Ciprofloxacin HCl [Cipro] 500 mg PO Q12HR 3 Days #6 tab Continue Cholecalciferol [Vitamin D3 (25 Mcg = 1000 Iu)] 25 mcg PO DAILY Atorvastatin [Lipitor] 40 mg PO HS Focus Factor 1 cap PO DAILY [place]-3/Dha/Epa/Fish Oil [Fish Oil 1,000 mg Softgel] 1 cap PO DAILY Cranberry(Unknown Dose) 1 tab PO DAILY Lutein 20 mg PO DAILY Ginkgo Biloba (Unknown Dose) 1 tab PO DAILY Calcium (Unknown Dose) 1 tab PO DAILY Discontinued Donepezil [Aricept] 5 mg PO HS Discharge Medication List Atorvastatin [Lipitor] 40 mg PO HS 08/30/22 [History] Cholecalciferol [Vitamin D3 (25 Mcg = 1000 Iu)] 25 mcg PO DAILY 08/30/22 [History] Cranberry(Unknown Dose) 1 tab PO DAILY 10/25/23 [History] Focus Factor 1 cap PO DAILY 10/25/23 [History] Lutein 20 mg PO DAILY 10/25/23 [History] [place]-3/Dha/Epa/Fish Oil [Fish Oil 1,000 mg Softgel] 1 cap PO DAILY 10/25/23 [History] Calcium (Unknown Dose) 1 tab PO DAILY 01/19/24 [History] Ginkgo Biloba (Unknown Dose) 1 tab PO DAILY 01/19/24 [History] Ciprofloxacin HCl [Cipro] 500 mg PO Q12HR 3 Days #6 tab 02/01/24 [Rx] Nystatin 100,000 Unit/ml Susp [Mycostatin Oral Susp] 500,000 unit PO QID 7 Days #140 ml 02/01/24 [Rx] Follow up Appointment(s)/Referral(s): [facility] [NON-STAFF] - 1 Week Bib Billings MD [STAFF PHYSICIAN] - 1 Week Activity/Diet/Wound Care/Special Instructions: No lifting over 10 pounds Shower daily. No soaking or tub baths for 2 weeks Very light activity until you are reevaluated at your follow up appointment with your surgeon Use Tylenol [id number] as needed for pain Follow up with PCP in 3 days Advance diet as tolerated to regular DO NOT TAKE ARICEPT WHILE TAKING CIPRO (ANTIBIOTIC). RESUME TAKING ARICEPT AFTER COMPLETING THE ANTIBIOTIC Discharge Disposition: HOME WITH HOME HEALTH SERVICES
[2024-02-01] MEDS: POTASSIUM CHLORIDE ER 20 MEQ TAB.ER PO SCH (14:05)
--- NOTE | 2024-02-01 15:55 | P.PN ---
Progress Note - Text Progress Note Date: 02/01/24 - Chief Complaint Abdominal surgery - History of Present Illness This is a 83-year-old patient, follows with visiting physicians. October 2023 admitted to the hospital under Dr Billings with acute diverticulitis of the sigmoid colon with microperforation and intramural abscess. Treated with antibiotics discharged. Patient has undergone lower anterior resection takedown of splenic flexure and left hemicolectomy. Epidural in place. Very sleepy. Not really Alireza to give much of a history. Though arousable. January 24: Sitting up in a chair. Tired. Clear liquid diet. Wound VAC in place. No flatus. January 25: Resting in bed. No flatus. Clear liquid diet. More awake and talkative. Daughter at the bedside. No pain. No nausea vomiting. Getting epidural. January 26: Remains on clear liquid diet. No flatus. Prevena in place. Tired. Epidural discontinued. January 27: Saw the patient this morning. Daughter at the bedside. No flatus. Clear liquid diet. Zosyn added by surgery because of some leukocytosis. Nausea vomiting. January 28: In a recliner. Tired. No flatus. Clinically appears to be ileus. Abdominal x-ray shows distended bowel loops. Small bowel loops 6.1 cm. Colon dilated up to 6.[address] Bellamy is covering for Dr. Billings. IV Zosyn. January 29: Patient was made n.p.o. by surgery. Patient had a somewhat liquidy moderate size BM yesterday. No nausea vomiting. Remains on IV Zosyn. January 30: Patient advanced to full liquid diet. Had a bowel movement today. Daughter at the bedside. Hyponatremia drip because of decreased oral intake. January 31: Patient tolerating full liquid diet well. Was advanced to regular diet by surgery for lunch. Eating fair. Having loose stools. No abdominal pain. Active Medications Acetaminophen (Acetaminophen Tab 325 Mg Tab) 650 mg PO Q4HR PRN PRN Reason: Fever and/ or Pain Atorvastatin Calcium (Atorvastatin 40 Mg Tab) 40 mg PO HS [facility] Last Admin: 01/31/24 20:55 Dose: 40 mg Cholecalciferol (Cholecalciferol 25 Mcg (1000 Iu) Tablet) 25 mcg PO DAILY [facility] Last Admin: 02/01/24 08:46 Dose: 25 mcg Donepezil HCl (Donepezil 5 Mg Tab) 5 mg PO HS [facility] Last Admin: 01/31/24 20:55 Dose: 5 mg Famotidine (Famotidine 20 Mg/2 Ml Vial) 20 mg IV DAILY [facility] Last Admin: 02/01/24 08:57 Dose: 20 mg Heparin Sodium (Porcine) (Heparin Sodium,Porcine 5,000 Unit/Ml 1 Ml Vial) 5,000 unit SQ Q12HR [facility] Last Admin: 02/01/24 08:46 Dose: 5,000 unit Hydromorphone HCl (Hydromorphone 0.5 Mg/0.5 Ml Syringe) 0.5 mg IVP Q3HR PRN PRN Reason: Pain Ropivacaine 250 mg/Hydromorphone HCl 5 mg/ Sodium Chloride 250 mls @ 0 mls/hr EPIDURAL .Q0M PRN; Protocol PRN Reason: Pain Control Last Admin: 01/25/24 13:49 Dose: 6 mls/hr Piperacillin Sod/Tazobactam (Sod 3.375 gm/ Sodium Chloride) 100 mls @ 25 mls/hr IVPB Q8HR [facility]; Protocol Last Admin: 02/01/24 15:39 Dose: Not Given Sodium Chloride (Saline 0.9%) 1,000 mls @ 100 mls/hr IV .Q10H [facility] Last Admin: 02/01/24 08:57 Dose: 100 mls/hr Lidocaine HCl (Lidocaine 1% (10mg/Ml) For Iv Start) 0.1 ml INTRADERMA PER PROTOCOL PRN PRN Reason: IV Start Metoclopramide HCl (Metoclopramide 5 Mg/Ml 2 Ml Vial) 10 mg IVP Q6HR PRN PRN Reason: Nausea and Vomiting Last Admin: 01/25/24 00:25 Dose: 10 mg Naloxone HCl (Naloxone 0.4 Mg/Ml 1 Ml Vial) 0.2 mg IV Q2M PRN PRN Reason: Opioid Reversal Nystatin (Nystatin 100,000 Unit/Ml Susp 500,000 Unit/5 Ml Cup) 500,000 unit PO QID [facility]; Protocol Last Admin: 02/01/24 14:03 Dose: 500,000 unit Ondansetron HCl (Ondansetron 4 Mg/2 Ml Vial) 4 mg IVP Q8HR PRN PRN Reason: Nausea And Vomiting Last Admin: 01/27/24 20:46 Dose: 4 mg Petrolatum (Zinc Oxide Paste (Z-Guard) 1 Applic) 1 applic TOPICAL Q2HR PRN PRN Reason: Wound Healing Last Admin: 01/31/24 11:47 Dose: 1 applic Potassium Chloride (Potassium Chloride Er 20 Meq Tab.Er) 20 meq PO Q2HR LEONARDO Stop: 02/01/24 18:01 Last Admin: 02/01/24 14:05 Dose: 20 meq Social history: Non-smoker. Alcohol rarely. Lives alone. Physical examination: VITAL SIGNS: 98.6, 91, 18, 155/66, 95% room air GENERAL: Reclining, comfortable EYES: Pupils equal. Conjunctiva liliane l. HEENT: External appearance of nose and ears normal, oral cavity grossly normal. NECK: JVD not raised; masses not palpable. HEART: First and second heart sounds are normal; no edema. LUNGS: Respiratory rate normal; creased breath sounds. ABDOMEN: Soft, nontender, liver spleen not palpable, no masses palpable. Dressing over midline incision. PSYCH: Alert oriented x 3, able to answer questions comfortably MUSCULOSKELETAL:No Clubbing/cyanosis;muscles-grossly intact INVESTIGATIONS, reviewed in the clinical context: January 31: White count 15.9 hemoglobin 11.3 platelets 360 potassium 3 creatinine 0.6 January 30: White count 15 hemoglobin 11.3 platelets 346 January 28: White count 20.1 hemoglobin 11.6 sodium 128 potassium 4.3 Abdominal x-ray [January 28]: Distended bowels January 27: White count 19.7 hemoglobin 11 sodium 126 potassium 4.5 creatinine 0.5 January 25: White count 12.4 hemoglobin 11.2 platelets 272 potassium 5 creatinine 0.5 January 24, 2024:White count 15.3 hemoglobin 12.4 platelets 261 potassium 4.3 creatinine 0.6 Assessment and plan: -Postop ileus, currently no nausea vomiting: Clinically resolved Doing bowel movements Follow-up with surgery -lower anterior resection takedown of splenic flexure and left hemicolectomy, with Dr Billings Wound VAC in place.-Prevena Epidural stopped Advance to regular diet today -Chronic congestive heart failure, EF not known: Stable Follow clinically -Hyponatremia from decreased solute intake:: Patient advanced to full liquids -Leukocytosis. In the setting of postop IV Zosyn Being placed on ciprofloxacin by ID. -Cognitive impairment. From late onset dementia Aricept -Essential hypertension -Hyperlipidemia Lipitor -Primary osteoarthritis Pain medication as needed -Lumbar foraminal stenosis with myelopathy -Varicose veins -Full code Clinically doing much better. Surgery is planning for discharge. Antibiotics per ID. Home therapy. Past Medical History Past Medical History: Cancer, Heart Failure, Dementia, Hyperlipidemia, Hypertension, Musculoskeletal Disorder, Osteoarthritis (OA) Additional Past Medical History / Comment(s): Beginnings of dementia. Diverticulitis. Intracranial meningioma. Lumbar foraminal stenosis with myelopathy. Vitamin D Deficiency. Hx skin cancer. Varicose veins. 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 Past Anesthesia/Blood Transfusion Reactions: No Reported Reaction Smoking Status: Never smoker
--- NOTE | 2024-02-01 16:34 | P.OP ---
Date of Procedure: 01/24/24 Preoperative Diagnosis: Diverticulitis Postoperative Diagnosis: diverticulitis Procedure(s) Performed: low anterior resection Anesthesia: DAMIEN Surgeon: Bib Billings Estimated Blood Loss (ml): 10 Pathology: other (sigmoid colon) Condition: stable Disposition: PACU Description of Procedure: the patient was placed on the operative table in the supine position. She received general anesthesia. She was then placed in dorsal lithotomy position. Her abdomen was prepped and draped in usual sterile fashion. A skin incision was made low midline. Then use electrocautery the subcu tissue was divided. Then the abdominal wall was divided. The Book[place]ter aspect the wound. Dams explore. The stomach appeared normal. The small bowel appeared normal. The right and transverse colon appeared normal except for few scattered diverticuli. In the descending and sigmoid colon there is extensive diverticular changes. The sigmoid colon was mobilized. And thenAn enterotomy was made in the proximal colon. The anvil for the 29 mm EEA stapler was placed in the colon. The colon was then transected by the SHARATH stapler. The enterotomy was closed with 3-0 silk suture. Next using the entry device the mesentery of the bowel was divided. And then the rectum was transected with the contour stapler. The library services assistant went to the patient's anus. The anus was then dilated with anal dilators. The 29 mm EEA stapler was then placed in the patient's anus. The spike was driven through the anterior rectal wall. The anvil was cut to the stapler. The stapler was then closed and fired. The stapler was dropped. 2 intact tissue rings were withdrawn from the stapler. Using a bowel clamp the bowel was occluded. And then the rectum was insufflated with air. After insufflation there was no evidence of leakage at the anastomosis. The anastomosis was checked under water. The abdomen irrigated. There is no bleeding seen. The fascia is closed with looped #1 PDS suture. Skin was closed eduar. Sterile dressing applied. Patient Tolerated the procedure well.
== END 2024-02-01 17:13 | disposition home health service (06) | DRG 330 ==
LOC: 2ORMAIN 01-24 06:44 → 5NMEDONC 01-24 12:43
PROVIDERS: ADMIT Surgery; ATTEND Surgery
PROC: 0DTG0ZZ Resection of Left Large Intestine, Open Approach (ICD-10-PCS; principal; 2024-01-24 08:40)
DX: K57.32 Diverticulitis of large intestine without perforation or abscess without bleeding (principal); B37.0 Candidal stomatitis; G95.89 Other specified diseases of spinal cord; E87.1 Hypo-osmolality and hyponatremia; K56.7 Ileus, unspecified; N39.0 Urinary tract infection, site not specified; F03.90 Unspecified dementia, unspecified severity, without behavioral disturbance, psychotic disturbance, mood disturbance, and anxiety; I11.0 Hypertensive heart disease with heart failure; I50.9 Heart failure, unspecified; B96.5 Pseudomonas (aeruginosa) (mallei) (pseudomallei) as the cause of diseases classified elsewhere; E78.00 Pure hypercholesterolemia, unspecified; E55.9 Vitamin D deficiency, unspecified; R41.89 Other symptoms and signs involving cognitive functions and awareness; E87.6 Hypokalemia; M48.061 Spinal stenosis, lumbar region without neurogenic claudication; I83.90 Asymptomatic varicose veins of unspecified lower extremity; M19.91 Primary osteoarthritis, unspecified site; Z79.899 Other long term (current) drug therapy; Z85.828 Personal history of other malignant neoplasm of skin; Z96.653 Presence of artificial knee joint, bilateral; Z88.2 Allergy status to sulfonamides
CPT/HCPCS: 71046; 74019; 80048; 80053; 81001; 83930; 83935; 84300; 85025; 86850; 86900; 86901; 87077; 87086; 87186; 88305; 88307; 93005; 94760

== ENCOUNTER 2024-06-23 21:30 | Observation (INO) | payer MEDICARE ==
--- NOTE | 2024-06-23 22:17 | ED ---
General Adult HPI - General Chief complaint: Shortness of Breath Stated complaint: Covid+ Time Seen by Provider: 06/23/24 21:36 Source: patient, EMS Mode of arrival: EMS Limitations: no limitations - History of Present Illness Initial comments: Patient is an 83-year-old female past medical history of dementia, hyperlipidemia, hypertension presenting today for chest pressure. Recently diagnosed with COVID-19 yesterday at her assisted living facility. History is limited by patient's dementia. She is AO times 2-3 however has difficulty explaining what brought her here today. Does endorse mild chest pressure while at rest today. Now improved. Denies difficulty in breathing, changes in vision, numbness, weakness, dizziness, cough, abdominal pain, nausea, vomiting diarrhea. - Related Data Home Medications Medication Instructions Recorded Confirmed Atorvastatin [Lipitor] 40 mg PO HS 08/30/22 01/24/24 Cholecalciferol [Vitamin D3 (25 25 mcg PO DAILY 08/30/22 01/24/24 Mcg = 1000 Iu)] Cranberry(Unknown Dose) 1 tab PO DAILY 10/25/23 01/24/24 Focus Factor 1 cap PO DAILY 10/25/23 01/24/24 Lutein 20 mg PO DAILY 10/25/23 01/24/24 [place]-3/Dha/Epa/Fish Oil [Fish Oil 1 cap PO DAILY 10/25/23 01/24/24 1,000 mg Softgel] Calcium (Unknown Dose) 1 tab PO DAILY 01/19/24 01/24/24 Ginkgo Biloba (Unknown Dose) 1 tab PO DAILY 01/19/24 01/24/24 Previous Rx's Medication Instructions Recorded Ciprofloxacin HCl [Cipro] 500 mg PO Q12HR 3 Days #6 tab 02/01/24 Nystatin 100,000 Unit/ml Susp 500,000 unit PO QID 7 Days #140 ml 02/01/24 [Mycostatin Oral Susp] Allergies Allergy/AdvReac Type Severity Reaction Status Date / Time pineapple Allergy Unknown Verified 06/23/24 21:55 sulfite Allergy Unknown Verified 06/23/24 21:55 Review of Systems ROS Statement: Those systems with pertinent positive or pertinent negative responses have been documented in the HPI. ROS Other: All systems not noted in ROS Statement are negative. Limitations: ROS unobtainable due to patients medical condition Past Medical History Past Medical History: Cancer, Heart Failure, Dementia, Hyperlipidemia, Hypertension, Musculoskeletal Disorder, Osteoarthritis (OA) Additional Past Medical History / Comment(s): Beginnings of dementia. Diverticulitis. Intracranial meningioma. Lumbar foraminal stenosis with myelopathy. Vitamin D Deficiency. Hx skin cancer. Varicose veins. 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 Past Anesthesia/Blood Transfusion Reactions: No Reported Reaction Past Psychological History: No Psychological Hx Reported Smoking Status: Never smoker Past Alcohol Use History: None Reported Past Drug Use History: None Reported - Past Family History Father History Unknown: Yes Mother History Unknown: Yes Son(s) Family Medical History: Cancer General Exam - General Exam Comments Initial Comments: PE: CONSTITUTIONAL: No apparent distress, well appearing SKIN: Warm, dry, no jaundice, hives or petechiae EYES: Pupils are equally round, extraocular movements intact without nystagmus, clear conjunctiva, non-icteric sclera HENT: Normocephalic, atraumatic, moist mucus membranes, oropharynx clear without exudates NECK: , Full range of motion, normal appearance PULMONARY: Clear to auscultation without wheezes, rhonchi, or rales, normal excursion, no accessory muscle use and no stridor CARDIOVASCULAR: Regular rate, rhythm, normal S1 and S2. No appreciated murmurs, rubs or gallops. Strong radial pulses with intact distal perfusion. No lower extremity edema GASTROINTESTINAL: Soft, non-tender, non-distended, no palpable masses, no rebound or guarding. No hepatosplenomegaly MUSCULOSKELETAL: Extremities have no gross deformity, no edema, redness, or s welling. No calf swelling ot TTP. NEUROLOGIC:_a/o x 2-3, knows year, month, place, self however somewhat confused about situation/circumstances that brought her here today otherwise, GCS 15, normal mentation and speech. Moves all extremities x 4 without motor or sensory deficit PSYCHIATRIC:_normal mood and affect, thought process is clear and linear Limitations: no limitations Course Vital Signs 06/23/24 06/23/24 06/23/24 21:44 22:54 23:31 Temperature 98.2 F Pulse Rate 71 73 69 Respiratory 16 18 18 Rate Blood Pressure 114/69 115/63 114/69 O2 Sat by Pulse 96 96 96 Oximetry 06/24/24 06/24/24 06/24/24 02:57 04:00 06:34 Temperature 98.0 F 98.1 F Pulse Rate 79 78 75 Respiratory 18 17 18 Rate Blood Pressure 117/90 135/79 133/76 O2 Sat by Pulse 96 97 95 Oximetry EKG Findings - EKG Comments: EKG Findings:: Sinus rhythm, low QRS voltage, rate 70 bpm, MA interval 157 ms, QRS duration 74 ms, QT/QTc 386/47 ms, normal axis, no obvious ST elevations or depressions or reciprocal depressions, no arrhythmia; Compared to EKG performed on 01/25/2024, patient does have new T wave inversions in V1, V2 otherwise no significant changes from prior Medical Decision Making - Medical Decision Making Triage note reviewed, patient diagnosed with COVID at [facility] complained of chest heaviness normal vital signs for EMS no meds given prior to arrival, patient reported to RN that she does not feel normal "like cotton balls on her fingertips while she tries to touch something" and like an elephant sitting on her chest" which is not as bad as before. Reviewed discharge summary from 02/01/2024, patient admitted for elective colon resection due to recurrent diverticulitis. Was pt. sent in by a medical professional or institution (BETTIE Morse, TUMBLER MACHINE OPERATOR HELPER, urgent care, hospital, or [facility]...) When possible be specific @ -Patient sent in by [facility] Did you speak to anyone other than the patient for history (EMS, parent, family, police, friend...)? What history was obtained from this source @ -No Did you review nursing and triage notes (agree or disagree)? Why? @ -I reviewed and agree with nursing and triage notes Were old charts reviewed (outside hosp., previous admission, EMS record, old EKG, old radiological studies, urgent care reports/EKG's, [facility] records)? Report findings @ -Please see above Differential Diagnosis (chest pain, altered mental status, abdominal pain women, abdominal pain men, vaginal bleeding, weakness, fever, dyspnea, syncope, headache, dizziness, GI bleed, back pain, seizure, CVA, palpatations, mental health, musculoskeletal)? @ -Differential Chest Pain: Stable Angina, Unstable Angina, STEMI, NSTEMI \\pericarditis, pleurisy, chostochondirits, Pneumothorax, Musculoskeletal, Esophageal Spasm GERD, Cholecystitisthis is not meant to be an all-inclusive list. EKG interpreted by me (3pts min.). @ -As above X-rays interpreted by me (1pt min.). @No cardiomegaly, consolidations or effusions CT interpreted by me (1pt min.). @ -None done U/S interpreted by me (1pt. min.). @ -None done What testing was considered but not performed or refused? (CT, X-rays, U/S, labs)? Why? @ -None What meds were considered but not given or refused? Why? @ -None Did you discuss the management of the patient with other professionals (professionals i.e. , PA, TUMBLER MACHINE OPERATOR HELPER, lab, RT, psych nurse, psychologist social, bottle filler, teacher, chief medical officer, block and case maker)? Give summary @ -No Was smoking cessation discussed for >3mins.? @ -No Was critical care preformed (if so, how long)? @ -No Were there social determinants of health that impacted care today? How? (Homelessness, low income, unemployed, alcoholism, drug addiction, t ransportation, low edu. Level, literacy, decrease access to med. care, fci, rehab)? @ -No Was there de-escalation of care discussed even if they declined (Discuss DNR or withdrawal of care, Hospice)? @ -No What co-morbidities impacted this encounter? (DM, HTN, Smoking, COPD, CAD, Cancer, CVA, ARF, Chemo, Hep., AIDS, mental health diagnosis, sleep apnea, morbid obesity)? @ -None Was patient admitted / discharged? Hospital course, mention meds given and route, prescriptions, significant lab abnormalities, going to OR and other pertinent info. @ -Hospital course Patient is an 83-year-old female past medical history of mild dementia presenting for chest pressure. On my assessment patient is well-appearing and in no acute distress. Initial endorses mild chest pressure however shortly after denies having any symptoms at this point. Plan for ACS workup. Aspirin ordered. Patient is agreeable plan. Of note patient was diagnosed with COVID- 19 yesterday as have many of her fellow residents at her assisted living facility. Labs and imaging reviewed. Grossly within normal limits. Abnormal values not concerning for acute pathology related to presenting complaint. Plan for admission for chest pain evaluation. Updated patient to results and plan for admission. She is agreeable with plan of care. Discussed with Dr. Chow, patient accepted for admission. Undiagnosed new problem with uncertain prognosis? @ -No Drug Therapy requiring intensive monitoring for toxicity (Heparin, Nitro, Insulin, Cardizem)? @ -No Were any procedures done? @ -No Diagnosis/symptom? @ -Chest pain Acute, or Chronic, or Acute on Chronic? @ -Acute Uncomplicated (without systemic symptoms) or Complicated (systemic symptoms)? @ -Uncomplicated Side effects of treatment? @ -No Exacerbation, Progression, or Severe Exacerbation? @ -No Poses a threat to life or bodily function? How? (Chest pain, [place], [place], pneumonia, PE, COPD, DKA, ARF, appy, cholecystitis, CVA, Diverticulitis, Homicidal, Suicidal, threat to staff... and all critical care pts) @ -Potentially, if secondary to ACS - Lab Data Result diagrams: 06/23/24 23:06 06/23/24 23:06 Lab Results 06/23/24 06/23/24 06/23/24 Range/Units 23:06 23:06 23:06 WBC 5.0 (3.8-10.6) k/uL RBC 3.99 (3.80-5.40) m/uL Hgb 12.6 (11.4-16.0) gm/dL Hct 38.2 (34.0-46.0) % MCV 95.6 (80.0-100.0) fL MCH 31.5 (25.0-35.0) pg MCHC 32.9 (31.0-37.0) g/dL RDW 12.5 (11.5-15.5) % Plt Count 167 (150-450) k/uL MPV 7.8 Neutrophils % 52 % Lymphocytes % 39 % Monocytes % 6 % Eosinophils % 1 % Basophils % 1 % Neutrophils # 2.6 (1.3-7.7) k/uL Lymphocytes # 1.9 (1.0-4.8) k/uL Monocytes # 0.3 (0-1.0) k/uL Eosinophils # 0.1 (0-0.7) k/uL Basophils # 0.0 (0-0.2) k/uL PT 9.8 L (10.0-12.5) sec INR 0.9 (<1.2) APTT 20.5 L (22.0-30.0) sec Sodium 137 (137-145) mmol/L Potassium 4.1 (3.5-5.1) mmol/L Chloride 103 (98-107) mmol/L Carbon Dioxide 31 H (22-30) mmol/L Anion Gap 3 mmol/L BUN 19 H (7-17) mg/dL Creatinine 0.53 (0.52-1.04) mg/dL Est GFR (CKD-EPI)AfAm >90 (>60 ml/min/1.73 sqM) Est GFR (CKD-EPI)NonAf 88 (>60 ml/min/1.73 sqM) Glucose 99 (74-99) mg/dL Calcium 8.9 (8.4-10.2) mg/dL Magnesium 1.9 (1.6-2.3) mg/dL Total Bilirubin 0.5 (0.2-1.3) mg/dL AST 28 (14-36) U/L ALT 18 (4-34) U/L Alkaline Phosphatase 83 (38-126) U/L Troponin I (0.000-0.034) ng/mL NT-Pro-B Natriuret Pep 168 pg/mL Total Protein 5.7 L (6.3-8.2) g/dL Albumin 3.2 L (3.5-5.0) g/dL 06/23/24 Range/Units 23:06 WBC (3.8-10.6) k/uL RBC (3.80-5.40) m/uL Hgb (11.4-16.0) gm/dL Hct (34.0-46.0) % MCV (80.0-100.0) fL MCH (25.0-35.0) pg MCHC (31.0-37.0) g/dL RDW (11.5-15.5) % Plt Count (150-450) k/uL MPV Neutrophils % % Lymphocytes % % Monocytes % % Eosinophils % % Basophils % % Neutrophils # (1.3-7.7) k/uL Lymphocytes # (1.0-4.8) k/uL Monocytes # (0-1.0) k/uL Eosinophils # (0-0.7) k/uL Basophils # (0-0.2) k/uL PT (10.0-12.5) sec INR (<1.2) APTT (22.0-30.0) sec Sodium (137-145) mmol/L Potassium (3.5-5.1) mmol/L Chloride (98-107) mmol/L Carbon Dioxide (22-30) mmol/L Anion Gap mmol/L BUN (7-17) mg/dL Creatinine (0.52-1.04) mg/dL Est GFR (CKD-EPI)AfAm (>60 ml/min/1.73 sqM) Est GFR (CKD-EPI)NonAf (>60 ml/min/1.73 sqM) Glucose (74-99) mg/dL Calcium (8.4-10.2) mg/dL Magnesium (1.6-2.3) mg/dL Total Bilirubin (0.2-1.3) mg/dL AST (14-36) U/L ALT (4-34) U/L Alkaline Phosphatase (38-126) U/L Troponin I <0.012 (0.000-0.034) ng/mL NT-Pro-B Natriuret Pep pg/mL Total Protein (6.3-8.2) g/dL Albumin (3.5-5.0) g/dL Disposition Clinical Impression: Chest pain Disposition: ADMITTED IP TO THIS [facility] Condition: Good
[2024-06-23] MEDS: ASPIRIN 81 MG PO STA (23:32)
[2024-06-23 23:33] LABS: Basophils % (A) 1 %; Eosinophils # (A) 0.1 k/uL (0-0.7); Eosinophils % (A) 1 %; HCT 38.2 % (34.0-46.0); HGB 12.6 gm/dL (11.4-16.0); Lymphocytes # (A) 1.9 k/uL (1.0-4.8); Lymphocytes % (A) 39 %; MCH 31.5 pg (25.0-35.0); MCHC 32.9 g/dL (31.0-37.0); MCV 95.6 fL (80.0-100.0); Mean Platelet Volume 7.8; Monocytes # (A) 0.3 k/uL (0-1.0); Monocytes % (A) 6 %; Neutrophils # (A) 2.6 k/uL (1.3-7.7); Neutrophils % (A) 52 %; Platelet Count 167 k/uL (150-450); RBC 3.99 m/uL (3.80-5.40); RDW 12.5 % (11.5-15.5)
[2024-06-23 23:50] LABS: INR 0.9 (<1.2); Prothrombin Time 9.8 sec (10.0-12.5)
[2024-06-23 23:57] LABS: ALT 18 U/L (4-34); AST 28 U/L (14-36); African American GFR (CKD) >90 (>60 ml/min/1.73 sqM); Albumin 3.2 g/dL (3.5-5.0); Alkaline Phosphatase 83 U/L (38-126); Anion Gap 3 mmol/L; Blood Urea Nitrogen 19 mg/dL (7-17); Calcium 8.9 mg/dL (8.4-10.2); Carbon Dioxide 31 mmol/L (22-30); Chloride 103 mmol/L (98-107); Glucose 99 mg/dL (74-99); Magnesium 1.9 mg/dL (1.6-2.3); Non-African American GFR(CKD) 88 (>60 ml/min/1.73 sqM); Potassium 4.1 mmol/L (3.5-5.1); Sodium 137 mmol/L (137-145); Total Bilirubin 0.5 mg/dL (0.2-1.3); Total Protein 5.7 g/dL (6.3-8.2)
[2024-06-24 00:04] LABS: NT-Pro-B-Type Natriuretic Pept 168 pg/mL
[2024-06-24 00:13] LABS: Partial Thromboplastin Time 20.5 sec (22.0-30.0)
[2024-06-24] MEDS ORDERED: MAG HYDROX/AL HYDROX/SIMETH 30 ML CUP PO PRN (01:03)
[2024-06-24] MEDS ORDERED: CALCIUM CARBONATE 500 MG CHEWABLE PO PRN (01:03)
[2024-06-24] MEDS ORDERED: NALOXONE 0.4 MG/ML 1 ML VIAL IV PRN (01:03)
[2024-06-24] MEDS ORDERED: ACETAMINOPHEN TAB 325 MG TAB PO PRN (01:03)
--- NOTE | 2024-06-24 03:48 | XR ---
EXAM: XR Chest, 2 Views CLINICAL HISTORY: ITS.REASON XR Reason: Chest Pain TECHNIQUE: Frontal and lateral views of the chest. COMPARISON: XR Chest dated 01/28/24 FINDINGS: Lungs: Unremarkable. No consolidation. Pleural space: Unremarkable. No pneumothorax. Heart: Unremarkable. No cardiomegaly. Mediastinum: Unremarkable. Normal mediastinal contour. Bones/joints: Unremarkable. No acute fracture. Degenerative changes of the spine. IMPRESSION: No evidence of acute cardiopulmonary disease.
--- NOTE | 2024-06-24 03:49 | P.HPIM ---
History of Present Illness H&P Date: 06/24/24 Chief Complaint: Chest pain 83-year-old female with advanced dementia [facility] resident Patient unable to provide any meaningful history she is alert awake however severely demented, she denies any fevers chills sore throat cough chest pain trouble breathing nausea vomiting abdominal pain GI bleeding changes in bowel or urinary habits Her emergency department doctor patient was sent in here for chest [facility] facility where she resides Presents with been diagnosed with COVID he was also diagnosed with COVID-19 yesterday however was asymptomatic initially today she was reporting some chest pressure for which staff sent her in here for evaluation No further history is obtainable from the patient due to severely demented status review of systems Unable to obtain unreliable due to dementia on exam Constitutional: No acute distress, conversant, pleasant Eyes: Anicteric sclerae, moist conjunctiva, Pupils equal round reactive to light ENMT: NC/AT Oropharynx clear, no erythema, or exudates Neck: Supple, no masses, or JVD No carotid bruits No thyromegaly Lungs: Clear to auscultation Clear to percussion Normal respiratory effort, no accessory muscle use Cardiovascular: Heart regular in rate and rhythm, No murmurs, gallops, or rubs No peripheral edema Abdominal: Soft Nontender, no guarding, rebound or rigidity Abdomen moving with respiration Normoactive bowel sounds Extremities: No digital cyanosis No clubbing Pedal pulses intact and symmetrical Radial pulses intact and symmetrical No calf tenderness Psychiatric: Alert and oriented to person, only Neuro Muscles Strength 4/5 in all 4 extremities Sensation to light touch grossly present throughout Cranial nerves II-XII grossly intact Past Medical History Past Medical History: Cancer, Heart Failure, Dementia, Hyperlipidemia, Hypertension, Musculoskeletal Disorder, Osteoarthritis (OA) Additional Past Medical History / Comment(s): Beginnings of dementia. Diverticulitis. Intracranial meningioma. Lumbar foraminal stenosis with myelop athy. Vitamin D Deficiency. Hx skin cancer. Varicose veins. 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 Past Anesthesia/Blood Transfusion Reactions: No Reported Reaction Past Psychological History: No Psychological Hx Reported Smoking Status: Never smoker Past Alcohol Use History: None Reported Past Drug Use History: None Reported - Past Family History Father History Unknown: Yes Mother History Unknown: Yes Son(s) Family Medical History: Cancer Medications and Allergies Home Medications Medication Instructions Recorded Confirmed Type Atorvastatin [Lipitor] 40 mg PO HS 08/30/22 01/24/24 History Cholecalciferol [Vitamin D3 (25 25 mcg PO DAILY 08/30/22 01/24/24 History Mcg = 1000 Iu)] Cranberry(Unknown Dose) 1 tab PO DAILY 10/25/23 01/24/24 History Focus Factor 1 cap PO DAILY 10/25/23 01/24/24 History Lutein 20 mg PO DAILY 10/25/23 01/24/24 History [place]-3/Dha/Epa/Fish Oil [Fish Oil 1 cap PO DAILY 10/25/23 01/24/24 History 1,000 mg Softgel] Calcium (Unknown Dose) 1 tab PO DAILY 01/19/24 01/24/24 History Ginkgo Biloba (Unknown Dose) 1 tab PO DAILY 01/19/24 01/24/24 History Ciprofloxacin HCl [Cipro] 500 mg PO Q12HR 3 Days #6 tab 02/01/24 Rx Nystatin 100,000 Unit/ml Susp 500,000 unit PO QID 7 Days #140 ml 02/01/24 Rx [Mycostatin Oral Susp] Allergies Allergy/AdvReac Type Severity Reaction Status Date / Time pineapple Allergy Unknown Verified 06/23/24 21:55 sulfite Allergy Unknown Verified 06/23/24 21:55 Physical Exam Vitals: Vital Signs Temp Pulse Resp BP Pulse Ox 06/24/24 02:57 98.0 F 79 18 117/90 96 06/23/24 23:31 69 18 114/69 96 06/23/24 22:54 73 18 115/63 96 06/23/24 21:44 98.2 F 71 16 114/69 96 Intake and Output 06/23/24 06/23/24 06/24/24 14:59 22:59 06:59 Other: Weight 58.967 kg Results CBC & Chem 7: 06/23/24 23:06 06/23/24 23:06 Labs: Abnormal Lab Results - Last 24 Hours (Table) 06/23/24 06/23/24 Range/Units 23:06 23:06 PT 9.8 L (10.0-12.5) sec APTT 20.5 L (22.0-30.0) sec Carbon Dioxide 31 H (22-30) mmol/L BUN 19 H (7-17) mg/dL Total Protein 5.7 L (6.3-8.2) g/dL Albumin 3.2 L (3.5-5.0) g/dL Assessment and Plan Assessment: 83-year-old female with hypertension hyperlipidemia advanced dementia coming in from extended-care facility for evaluation of chest pressure I discussed case with ED doctor and accepted the admission for atypical chest pain rule out ACS with anticipated length of stay less than 2 midnights Atypical chest pain rule out acute coronary syndrome Blood work showing white count of 5 hemoglobin 12.6 unremarkable Troponins negative less than 0.012 Renal function unremarkable sodium 137 potassium 4.1 BUN 19 creatinine 0.5 Monitor vital signs Cardiology consult Trend troponins Check lipid profile 66 Nitro as needed for chest pain Aspirin 81 mg p.o. daily Continue statin COVID-positive Asymptomatic Continue to monitor vital signs and oxygen requirement Advanced dementia History of hypertension Hyperlipidemia Patient medications reviewed and has not been reconciled yet however there is only statin which will be continued verify home medications Full code DVT prophylaxis Lovenox 40 mg subcu daily
[2024-06-24] MEDS: PANTOPRAZOLE 40 MG TABLET PO SCH (07:43)
[2024-06-24 08:44] VITALS: BP 145/75; PULSE 92; RESP 18; TEMP 97.5
[2024-06-24] MEDS: ASPIRIN 81 MG PO SCH (09:21)
[2024-06-24] MEDS: FAMOTIDINE 20 MG TAB PO SCH (09:21)
[2024-06-24] MEDS: ENOXAPARIN 40 MG/0.4 ML SYRINGE SQ SCH (09:23)
--- NOTE | 2024-06-24 12:05 | P.CRDCN ---
History of Present Illness Consult date: 06/24/24 Consult reason: chest pain History of present illness: This is Lewis Ramirez NP, I'm dictating on behalf of Dr. Sandoval's H&P and A&P The patient was interviewed and examined. HPI: Patient is an 83-year-old female with a documented past medical history that includes cancer, heart failure, dementia, hyperlipidemia, hypertension, vitamin D deficiency, osteoarthritis who presented to the hospital from her long-term care facility with complaints of chest discomfort. Patient is demented, and history is unable to be obtained from the patient herself. She is unsure why she is here at the hospital. The entirety of the HPI is taken from emergency department notes. Patient was recently diagnosed with COVID-19 yesterday at the facility. Per the emergency department notes the patient was endorsing mild chest pressure while at rest, with improvement prior to arrival. She denied difficulty in breathing, vision changes, numbness, weakness, dizziness, cough, abdominal pain, nausea, vomiting, and diarrhea. In the emergency department the patient was evaluated. EKG was done which showed normal sinus rhythm heart rate of 70, no evidence of acute VA with no ST or T wave changes. Initial troponin was negative. We were consulted for the report of chest discomfort by the patient. ROS: [No fever, chills, or rigors] [no cough, phlegm, or expectoration] [no nausea, vomiting, or diarrhea] [no hematuria, dysuria] [no musculoskelatal complaints] [no strokes or seizures] [no skin lesions] EXAMINATION: GENERAL: Well-appearing, well-nourished and in no acute distress. NECK: Supple without JVD or thyromegaly. LUNGS: Breath sounds clear to auscultation bilaterally. Respiration equal and unlabored. No wheezes, rales or rhonchi. HEART: Regular rate and rhythm without murmurs, rubs or gallops. S1 and S2 heard. EXTREMITIES: Normal range of motion, no edema. No clubbing or cyanosis. Peripheral pulses intact and strong. REVIEW OF LABS, ECG & MEDICAL DATA: LABS: White count 5, hemoglobin 12.6, platelets 167, sodium 137, potassium 4.1, BUN 19, creatinine 0.53, calcium 8.9, magnesium 1.9, troponin less than 0.012, BNP 168 EKG: Normal sinus rhythm, heart rate 70 IMAGING: Chest x-ray dated 06/24/2024 demonstrates no evidence of acute cardiopulmonary disease. VITALS: Temp 97.5, pulse 92, respirations 18, blood pressure 145/75, O2 saturation 97% on room air IMPRESSION: 1. COVID-19 infection 2. Atypical chest discomfort, no evidence of VA 3. Dementia 4. Hypertension 5. Hyperlipidemia PLAN: Obtain D-dimer. Continue atorvastatin. Seeing the patient has a history of nitrofurantoin use, this could cause interstitial fibrosis which could be the etiology of her symptoms. Recommend further medicine workup. If D-dimer is elevated, obtain CT angiogram of the chest. Further recommendations based on patient's clinical course. Thank you for the consult and allowing us to participate in the care of this patient. Past Medical History Past Medical History: Cancer, Heart Failure, Dementia, Hyperlipidemia, Hypertension, Musculoskeletal Disorder, Osteoarthritis (OA) Additional Past Medical History / Comment(s): Beginnings of dementia. Diverticulitis. Intracranial meningioma. Lumbar foraminal stenosis with myelopathy. Vitamin D Deficiency. Hx skin cancer. Varicose veins. 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 Past Anesthesia/Blood Transfusion Reactions: No Reported Reaction Past Psychological History: No Psychological Hx Reported Smoking Status: Former smoker, Never smoker Past Alcohol Use History: None Reported Past Drug Use History: None Reported - Past Family History Father History Unknown: Yes Mother History Unknown: Yes Son(s) Family Medical History: Cancer Medications and Allergies Home Medications Medication Instructions Recorded Confirmed Type Atorvastatin [Lipitor] 40 mg PO HS 08/30/22 06/24/24 History Donepezil [Aricept] 5 mg PO HS 06/24/24 06/24/24 History Magnesium Hydroxide [Milk of 2,400 mg PO DAILY 06/24/24 06/24/24 History Magnesia] Nitrofurantoin Monohyd/M-Cryst 100 mg PO BID 06/24/24 06/24/24 History [Macrobid] SILVER sulfADIAZINE Cream 0.0625 inch TOPICAL BID 06/24/24 06/24/24 History [Silvadene 1% Cream] Sennosides/Docusate Sodium [Senna 1 tab PO BID 06/24/24 06/24/24 History Plus 8.6-50 mg Tablet] Allergies Allergy/AdvReac Type Severity Reaction Status Date / Time pineapple Allergy Unknown Verified 06/24/24 09:12 sulfite Allergy Unknown Verified 06/24/24 09:12 Physical Exam Vitals: Vital Signs Temp Pulse Pulse Resp BP BP Pulse Ox 06/24/24 08:40 97.5 F L 92 18 145/75 97 06/24/24 08:00 73 16 132/86 96 06/24/24 06:34 98.1 F 75 18 133/76 95 06/24/24 04:00 78 17 135/79 97 06/24/24 02:57 98.0 F 79 18 117/90 96 06/23/24 23:31 69 18 114/69 96 06/23/24 22:54 73 18 115/63 96 06/23/24 21:44 98.2 F 71 16 114/69 96 Intake and Output 06/23/24 06/24/24 06/24/24 22:59 06:59 14:59 Other: Weight 58.967 kg 58.967 kg Results 06/23/24 23:06 06/23/24 23:06 Cardiac Enzymes 06/23/24 06/23/24 Range/Units 23:06 23:06 AST 28 (14-36) U/L Troponin I <0.012 (0.000-0.034) ng/mL Coagulation 06/23/24 Range/Units 23:06 PT 9.8 L (10.0-12.5) sec APTT 20.5 L (22.0-30.0) sec CBC 06/23/24 Range/Units 23:06 WBC 5.0 (3.8-10.6) k/uL RBC 3.99 (3.80-5.40) m/uL Hgb 12.6 (11.4-16.0) gm/dL Hct 38.2 (34.0-46.0) % Plt Count 167 (150-450) k/uL Comprehensive Metabolic Panel 06/23/24 Range/Units 23:06 Sodium 137 (137-145) mmol/L Potassium 4.1 (3.5-5.1) mmol/L Chloride 103 (98-107) mmol/L Carbon Dioxide 31 H (22-30) mmol/L BUN 19 H (7-17) mg/dL Creatinine 0.53 (0.52-1.04) mg/dL Glucose 99 (74-99) mg/dL Calcium 8.9 (8.4-10.2) mg/dL AST 28 (14-36) U/L ALT 18 (4-34) U/L Alkaline Phosphatase 83 (38-126) U/L Total Protein 5.7 L (6.3-8.2) g/dL Albumin 3.2 L (3.5-5.0) g/dL Current Medications Generic Name Dose Route Start Last Admin Trade Name Freq PRN Reason Stop Dose Admin Acetaminophen 650 mg 06/24/24 01:03 Acetaminophen Tab 325 Mg Tab PO Q6HR PRN Mild Pain or Fever > 100.5 Al Hydroxide/Mg Hydroxide 15 ml 06/24/24 01:03 Mag Hydrox/Al Hydrox/Simeth 30 Ml Cup PO Q6HR PRN Indigestion Aspirin 81 mg 06/24/24 09:00 06/24/24 09:21 Aspirin 81 Mg PO 81 mg DAILY LEONARDO Administration Atorvastatin Calcium 40 mg 06/24/24 21:00 Atorvastatin 40 Mg Tab PO HS LEONARDO Calcium Carbonate/Glycine 1,000 mg 06/24/24 01:03 Calcium Carbonate 500 Mg Chewable PO Q4HR PRN Dyspepsia Enoxaparin Sodium 40 mg 06/24/24 09:00 06/24/24 09:23 Enoxaparin 40 Mg/0.4 Ml Syringe SQ 40 mg DAILY LEONARDO Administration Famotidine 20 mg 06/24/24 09:00 06/24/24 09:21 Famotidine 20 Mg Tab PO 20 mg BID LEONARDO Administration Naloxone HCl 0.2 mg 06/24/24 01:03 Naloxone 0.4 Mg/Ml 1 Ml Vial IV Q2M PRN Opioid Reversal Pantoprazole Sodium 40 mg 06/24/24 07:30 06/24/24 07:43 Pantoprazole 40 Mg Tablet PO Not Given AC-[id number] LEONARDO Intake and Output 06/23/24 06/24/24 06/24/24 22:59 06:59 14:59 Other: Weight 58.967 kg 58.967 kg Patient Weight 06/25/24 06:59 Weight 58.967 kg 06/23/24 23:06 06/23/24 23:06
--- NOTE | 2024-06-24 12:33 | P.DS ---
Providers Date of admission: 06/24/24 01:05 Expected date of discharge: 06/24/24 Attending physician: Kevin Chow MD Consults: 06/24/24 01:03 Consult Physician Routine Consulting Provider: Chintan Sandoval Consult Reason/Comments: Chest pain Do you want consulting provider notified?: Yes, Notify in am Primary care physician: Stated None Hospital Course: Discharge Diagnosis: COVID-19 HTN HLD Dementia CHF orders Hospital Course: Patient is an 83-year-old female with history of dementia, hypertension, and dyslipidemia scented from her assisted living facility for COVID. Possible history of atypical chest pain. Initial EKG is reviewed by myself shows normal sinus rhythm at a rate of [address]-T wave changes. Initial troponin was negative. Was found to have COVID. Chest x-ray negative. O2 sat remained greater than 94%. Seen by cardiology and cleared for discharge. Would defer D-dimer testing in a patient in the setting of an acute COVID-19 infection without signs of respiratory distress. Further evaluation can be completed in the outpatient setting. Discharge instructions: Activity as tolerated, regular diet, follow-up with primary care physician. Patient seen and examined at bedside. No complaints currently, denies chest pain or shortness of breath. Vital signs reviewed and stable. General: Nontoxic, no distress, appears at stated age Cardiovascular: S1S2 reg, no murmur, positive posterior tibial pulse bilateral, Lungs: CTA bilateral, no rhonchi, no rales, no accessory muscle use Ext: No gross muscle atrophy, no edema b/l lower extremities, no contractures Neuro: CN II-XI grossly intact, no focal neuro deficits Psych: Awake, oriented to self, does not understand why she is in the hospital appropriate affect A total of 25 minutes of time were spent preparing this complex discharge summary. Patient was discharged on 06/24/24. This dictation was prepared using Peak voice recognition software. Though every attempt is made to correct errors during dictation some may still exist. Patient Condition at Discharge: Good Plan - Discharge Summary Discharge Rx Participant: Yes New Discharge Prescriptions: Continue Atorvastatin [Lipitor] 40 mg PO HS Nitrofurantoin Monohyd/M-Cryst [Macrobid] 100 mg PO BID Sennosides/Docusate Sodium [Senna Plus 8.6-50 mg Tablet] 1 tab PO BID SILVER sulfADIAZINE Cream [Silvadene 1% Cream] 0.0625 inch TOPICAL BID Magnesium Hydroxide [Milk of Magnesia] 2,400 mg PO DAILY Donepezil [Aricept] 5 mg PO HS Discharge Medication List Atorvastatin [Lipitor] 40 mg PO HS 08/30/22 [History] Donepezil [Aricept] 5 mg PO HS 06/24/24 [History] Magnesium Hydroxide [Milk of Magnesia] 2,400 mg PO DAILY 06/24/24 [History] Nitrofurantoin Monohyd/M-Cryst [Macrobid] 100 mg PO BID 06/24/24 [History] SILVER sulfADIAZINE Cream [Silvadene 1% Cream] 0.0625 inch TOPICAL BID 06/24/24 [History] Sennosides/Docusate Sodium [Senna Plus 8.6-50 mg Tablet] 1 tab PO BID 06/24/24 [History] Follow up Appointment(s)/Referral(s): None,Stated [Primary Care Provider] - 1-2 days Activity/Diet/Wound Care/Special Instructions: Activity: as tolerate Diet: regular Discharge Disposition: HOME SELF-CARE
[2024-06-24] MEDS ORDERED: ATORVASTATIN 40 MG TAB PO SCH (21:00)
== END 2024-06-24 14:05 | disposition home health service (06) ==
LOC: EC 21:30 → 6NMEDSUR 06-24 01:05
PROVIDERS: ADMIT Internal Medicine; ATTEND Internal Medicine
DX: U07.1 COVID-19 (principal); R07.89 Other chest pain; F03.90 Unspecified dementia, unspecified severity, without behavioral disturbance, psychotic disturbance, mood disturbance, and anxiety; I11.0 Hypertensive heart disease with heart failure; I50.9 Heart failure, unspecified; E78.5 Hyperlipidemia, unspecified; E55.9 Vitamin D deficiency, unspecified; M19.90 Unspecified osteoarthritis, unspecified site; R79.89 Other specified abnormal findings of blood chemistry; Z79.899 Other long term (current) drug therapy; Z88.8 Allergy status to other drugs, medicaments and biological substances; Z91.018 Allergy to other foods; Z90.49 Acquired absence of other specified parts of digestive tract; Z87.19 Personal history of other diseases of the digestive system; Z85.828 Personal history of other malignant neoplasm of skin; Z87.891 Personal history of nicotine dependence
CPT/HCPCS: 36415; 71046; 80053; 83735; 83880; 84484; 85025; 85610; 85730; 87636; 93005; 96372; 99285